=== PATIENT | female | born 1955 | race Caucasian/White ===

== ENCOUNTER → 2017-04-30 13:04 | Outpatient (CLI) | payer OTHER, SELFPAY ==
--- NOTE | 2017-04-30 13:23 | EKG12_ITS ---
Test Reason : PRE OP Blood Pressure : / mmHG Vent. Rate : 074 BPM Atrial Rate : 075 BPM P-R Int : 166 ms QRS Dur : 074 ms QT Int : 396 ms P-R-T Axes : 065 015 057 degrees QTc Int : 439 ms Somatic/motion artifact Normal sinus rhythm Confirmed by DILCIA CHRISTENSEN, AMRA ([id number]), school photograph editor CA HERRERA ([id number]) on 05/01/2017 1:26:21 PM Referred By: Ralph Herrera Confirmed By:MARA HA MD
[2017-04-30 13:36] LABS: Hematocrit 39.7 % (37-47); Hemoglobin 12.9 g/dl (12.0-15.0); Mean Corp Hgb Conc 32.5 g/gl (32-36); Mean Corpuscular Hgb 29.5 pg (27.0-32.0); Mean Corpuscular Volume 90.6 fL (81-99); Mean Platelet Vol. 9.3 fl (6.2-12.0); Platelet Count 265 K/mm3 (150-450); RBC Distribution Width CV 13.3 % (11.6-14.6); RBC Distribution Width SD 44.1 fl (35.1-43.9); Red Blood Count 4.38 M/mm3 (4.2-5.4); White Blood Count 6.2 K/mm3 (4.4-11.0)
[2017-04-30 13:38] LABS: Scan Indicated on CBC? Y/N NO
[2017-04-30 13:55] LABS: Anion Gap 6 (5-15); BUN 12 mg/dL (7-18); BUN/Creat Ratio 18.7 RATIO (10-20); Calcium,Total 8.4 mg/dL (8.5-10.1); Chloride 107 mmol/L (98-107); Creatinine, Serum 0.64 mg/dL (0.55-1.02); EST Glomerular Filtration Rate 99 mL/min (>60); Est Glom Filt Rate - Afr Amer 120 mL/min (>60); Glucose 106 mg/dL (74-106); Potassium 3.7 mmol/L (3.5-5.1); Sodium Level 142 mmol/L (136-145)
== END ==
PROVIDERS: Family Provider Internal Medicine; PCP Internal Medicine; Visit Provider Orthopaedic Surgery
DX: Z01.818 Encounter for other preprocedural examination (principal); Z79.899 Other long term (current) drug therapy
CPT/HCPCS: 36415; 80048; 85027; 93005

== ENCOUNTER → 2018-01-23 10:33 | Outpatient (CLI) | payer OTHER, SELFPAY ==
[2018-01-23 12:12] LABS: AST(SGOT) 16 U/L (15-37); Alanine Aminotransfer ALT/SGPT 16 U/L (13-56); Albumin, Serum 3.6 g/dL (3.2-5.0); Alkaline Phosphatase 89 U/L (45-117); Anion Gap 8 (5-15); BUN 17 mg/dL (7-18); BUN/Creat Ratio 23.5 RATIO (10-20); Calcium,Total 8.9 mg/dL (8.5-10.1); Chloride 105 mmol/L (98-107); Creatinine, Serum 0.72 mg/dL (0.55-1.02); EST Glomerular Filtration Rate 87 mL/min (>60); Est Glom Filt Rate - Afr Amer 105 mL/min (>60); Globulin 3.7 g/dL (2.2-4.2); Glucose 74 mg/dL (74-106); Protein, Total 7.3 g/dL (6.4-8.2); Sodium Level 141 mmol/L (136-145)
== END ==
PROVIDERS: Family Provider Internal Medicine; PCP Internal Medicine
DX: D05.80 Other specified type of carcinoma in situ of unspecified breast (principal)
CPT/HCPCS: 36415; 80053

== ENCOUNTER → 2019-01-15 13:04 | Outpatient (CLI) | payer OTHER, SELFPAY ==
--- NOTE | 2019-01-15 13:07 | BI_ITS ---
MAMMOGRAPHY - BILATERAL SCREENING REASON FOR EXAM: Female, 63 years old. Routine annual screening examination. PERTINENT HISTORY: Non-contributory. History of prior bilateral breast reduction surgery. TECHNIQUE: Digital bilateral breast mike (3D mammographic acquisition) in the CC and MLO projections. 2-D mediolateral oblique (MLO) and craniocaudad (CC) views of both breasts were obtained. CAD: Full Field Digital Mammography with Computer Added Detection was performed. COMPARISON: Comparison is made with prior examination dated June 27, 2011. FINDINGS: Breast Composition: The breasts are heterogeneously dense, which may obscure small masses. There are no dominant masses or suspicious calcifications. Stable bilateral benign-appearing axillary lymph nodes. No other significant abnormalities are identified. There has been no significant change since the prior study. BI/SCREEN MAMM (CAD) W/MIKE BILAT IMPRESSION: Stable bilateral screening mammogram. Yearly follow-up mammogram recommended. (A) ASSESSMENT CATEGORY: BIRADS Category 2: Benign. A letter regarding these results will be sent to the patient by the facility within 30 days. Approximately 10% of breast cancers are not detected by mammography. A normal mammogram should not delay biopsy of a clinically suspicious abnormality. [id number] Electronically Signed: Milan Tello, at 15:01 EDT , Service support ,
== END ==
PROVIDERS: Family Provider Internal Medicine; PCP Internal Medicine; Referring Provider Obstetrics & Gynecology; Visit Provider Obstetrics & Gynecology
DX: Z12.31 Encounter for screening mammogram for malignant neoplasm of breast (principal)
CPT/HCPCS: 77063; 77067

== ENCOUNTER → 2019-02-11 07:55 | Outpatient (CLI) | payer OTHER, SELFPAY ==
[2019-01-22 13:12] VITALS: BMI 30.9
[2019-02-11 08:54] LABS: ALB/GLOB Ratio 1.1 RATIO (0.9-2.4); AST(SGOT) 20 U/L (15-37); Alanine Aminotransfer ALT/SGPT 13 U/L (13-56); Albumin, Serum 3.7 g/dL (3.2-5.0); Alkaline Phosphatase 85 U/L (45-117); Anion Gap 7 (5-15); BUN 19 mg/dL (7-18); Calcium,Total 9.4 mg/dL (8.5-10.1); Chloride 110 mmol/L (98-107); Cholesterol 225 mg/dL (200); EST Glomerular Filtration Rate 89 mL/min (>60); Est Glom Filt Rate - Afr Amer 107 mL/min (>60); Globulin 3.5 g/dL (2.2-4.2); Glucose 80 mg/dL (74-106); High Density Lipoprotein 67 mg/dL; Potassium 4.2 mmol/L (3.5-5.1); Protein, Total 7.2 g/dL (6.4-8.2); Sodium Level 144 mmol/L (136-145); Triglycerides 91 mg/dL; Very Low Density Lipoprotein 18 mg/dL (5-40)
== END ==
PROVIDERS: Family Provider Internal Medicine; PCP Internal Medicine; Referring Provider Obstetrics & Gynecology; Visit Provider Obstetrics & Gynecology
DX: Z13.220 Encounter for screening for lipoid disorders (principal); Z13.1 Encounter for screening for diabetes mellitus
CPT/HCPCS: 36415; 80053; 80061

== ENCOUNTER → 2020-01-05 | Outpatient (CLI) | payer MEDICARE, SELFPAY ==
[2019-01-22 13:12] VITALS: BMI 30.9
--- NOTE | 2020-01-05 10:22 | BI_ITS ---
MAMMOGRAPHY - BILATERAL SCREENING REASON FOR EXAM: Female, 64 years old. Routine annual screening examination. PERTINENT HISTORY: Non-contributory. History of prior bilateral breast reduction surgery. TECHNIQUE: Digital bilateral breast mike (3D mammographic acquisition) in the CC and MLO projections. 2-D mediolateral oblique (MLO) and craniocaudad (CC) views of both breasts were obtained. CAD: Full Field Digital Mammography with Computer Added Detection was performed. COMPARISON: Comparison is made with prior study dated 01/15/2019. FINDINGS: Breast Composition: The breasts are heterogeneously dense, which may obscure small masses. There are no dominant masses or suspicious calcifications. Stable benign-appearing bilateral axillary nodes. No other significant abnormalities are identified. There has been no significant change since the prior study. BI/SCREEN MAMM (CAD) W/MIKE BILAT IMPRESSION: Stable bilateral screening mammogram. Yearly follow-up mammogram recommended. (A) ASSESSMENT CATEGORY: BIRADS Category 2: Benign. A letter regarding these results will be sent to the patient by the facility within 30 days. Approximately 10% of breast cancers are not detected by mammography. A normal mammogram should not delay biopsy of a clinically suspicious abnormality. [id number] Electronically Signed: Milan Tello, at 12:16 EDT , Service support ,
== END | disposition home or self-care (01) ==
PROVIDERS: PCP Internal Medicine; Referring Provider Obstetrics & Gynecology; Visit Provider Obstetrics & Gynecology
DX: Z12.31 Encounter for screening mammogram for malignant neoplasm of breast (principal)
CPT/HCPCS: 77063; 77067

== ENCOUNTER → 2020-02-23 08:23 | Outpatient (CLI) | payer MEDICARE, SELFPAY ==
[2020-02-10 13:01] VITALS: BMI 32.3
--- NOTE | 2020-02-23 08:29 | BD_ITS ---
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 COMPARISON: None. FINDINGS: Lumbar Spine (L1-L4): g/cm2 (1.204) / T-score (0.0) / Z-score (1.6) Findings are suggestive of normal bone density with a low fracture risk. Left Femur Total: g/cm2 (0.973) / T-score (-0.3) / Z-score (0.9) Left Femoral Neck: g/cm2 (0.968) / T-score (-0.5) / Z-score (1.0) Right Femur Total: g/cm2 (0.935) / T-score (-0.6) / Z-score (0.6) Right Femoral Neck: g/cm2 (0.993) / T-score (-0.3) / Z-score (1.2) BD/Dexa Bone Density Study IMPRESSION: The patient is considered normal as outlined below according to World Rafa Organization (WHO) criteria with a low fracture risk. Reference Information: The T-score is the number of standard deviations above or below the standard which is normal for young adults at their peak bone mineral density. The World Health Organization (WHO) interprets the T-scores as follows: Above -1 Normal bone density Between -1 and -2.5 Osteopenia Equal to / or below -2.5 Osteoporosis As a practical clinical guideline, osteopenia may be graded as follows: Mild -1 through -1.5 Moderate -1.6 through -2.0 Severe -2.1 through -2.4 The Z-score is the number of standard deviations above or below age-matched controls. A Z-score of less than -1.5 would be considered abnormal. References: 1. NIH Osteoporosis and Related Bone Diseases www osteo.org 2. International Society for Clinical Densitometry www iscd.org 3. National Osteoporosis Foundation www nof.org Electronically Signed: Milan Tello, at 10:05 EST , Service support ,
== END ==
PROVIDERS: PCP Internal Medicine; Referring Provider Nurse Practitioner Women's Health; Visit Provider Nurse Practitioner Women's Health
DX: Z78.0 Asymptomatic menopausal state (principal)
CPT/HCPCS: 77080

== ENCOUNTER → 2020-03-17 13:01 | Outpatient (CLI) | payer MEDICARE, SELFPAY ==
[2020-03-17 11:09] VITALS: BMI 32.1
== END ==
PROVIDERS: PCP Internal Medicine; Referring Provider Nurse Practitioner Women's Health; Visit Provider Nurse Practitioner Women's Health
DX: N89.8 Other specified noninflammatory disorders of vagina (principal)
CPT/HCPCS: 87070; 87077; 87205

== ENCOUNTER → 2020-03-23 13:52 | Outpatient (CLI) | payer MEDICARE, SELFPAY ==
[2020-03-17 11:09] VITALS: BMI 32.1
--- NOTE | 2020-03-23 13:55 | US_ITS ---
STUDY: ULTRASOUND OF THE FEMALE PELVIS - COMPLETE REASON FOR EXAM: Female, 64 years old. PELVIC PAIN LMP: Menopause TECHNIQUE: Transabdominal and Transvaginal TECHNICAL QUALITY: Adequate. COMPARISON: None. FINDINGS: The uterus is anteverted and is in a midline position. The uterus measures 11.4 x 5.8 x 5.2 cm. Normal uterine cervix. The endometrium measures 4 mm in thickness, and is hyperechoic. There is no demonstrated endometrial mass. There is no demonstrated myometrial mass. I.U.D. - The patient does not have an I.U.D. The ovaries are not visualized.. There is no fluid in the cul-de-sac. The pre void volume of the bladder was ml. The post void volume of the bladder was ml. Polycystic ovary disease: No. US/Transvaginal Non- IMPRESSION: Enlarged heterogeneous uterus but without discrete mass. Questionable endometrial thickening. Correlation with pelvic MRI would be useful. Electronically Signed: Kemar Driver MD at 15:37 EST Tel , Service support ,
--- NOTE | 2020-03-23 13:55 | US_ITS ---
STUDY: ULTRASOUND OF THE FEMALE PELVIS - COMPLETE REASON FOR EXAM: Female, 64 years old. PELVIC PAIN LMP: Menopause TECHNIQUE: Transabdominal and Transvaginal TECHNICAL QUALITY: Adequate. COMPARISON: None. FINDINGS: The uterus is anteverted and is in a midline position. The uterus measures 11.4 x 5.8 x 5.2 cm. Normal uterine cervix. The endometrium measures 4 mm in thickness, and is hyperechoic. There is no demonstrated endometrial mass. There is no demonstrated myometrial mass. I.U.D. - The patient does not have an I.U.D. The ovaries are not visualized.. There is no fluid in the cul-de-sac. The pre void volume of the bladder was ml. The post void volume of the bladder was ml. Polycystic ovary disease: No. US/Pelvic (Non ) IMPRESSION: Enlarged heterogeneous uterus but without discrete mass. Questionable endometrial thickening. Correlation with pelvic MRI would be useful. Electronically Signed: Kemar Driver MD at 15:37 EST Tel , Service support ,
== END ==
LOC: OPUS 13:54 → US 14:05
PROVIDERS: PCP Internal Medicine; Visit Provider Nurse Practitioner Women's Health
DX: R10.2 Pelvic and perineal pain (principal)
CPT/HCPCS: 76830; 76856

== ENCOUNTER → 2020-04-26 15:57 | Outpatient (CLI) | payer MEDICARE, SELFPAY ==
[2020-04-12 08:12] VITALS: BMI 31.6
--- NOTE | 2020-04-26 15:58 | MRI_ITS ---
STUDY: MR PELVIS WITH T WITHOUT CONTRAST REASON FOR EXAM: Female, 64 years old. abnormal pelvic u/s; pelvic pain, pressure, leaking of urine TECHNIQUE: Standardized fat and water weighted pulse sequences were obtained in all 3 orthogonal planes, pre-and post contrast administration. IV 15 Dotarem was administered for the contrast portion of the examination. COMPARISON: None. FINDINGS: Normal urinary bladder. Normal visualized small intestine. Normal visualized colon. Normal visualized uterus. There is no pelvic fluid. There is no pelvic mass lesion or lymphadenopathy. Normal visualized pelvic arteries. Normal osseous structures. Normal abdominal wall. MRI/Pelvis W/WO Contrast IMPRESSION: Normal unenhanced and enhanced MRI of the pelvis. Electronically Signed: Kemar Driver MD at 7:58 EST Tel , Service support ,
[2020-04-26 16:21] LABS: EGFR FINGERSTICK > 60.0000 mL/min (>60)
== END ==
PROVIDERS: PCP Internal Medicine; Referring Provider Obstetrics & Gynecology; Visit Provider Obstetrics & Gynecology
DX: R93.89 Abnormal findings on diagnostic imaging of other specified body structures (principal)
CPT/HCPCS: 72197; A9575

== ENCOUNTER → 2020-08-24 15:09 | Outpatient (CLI) | payer MEDICARE, SELFPAY ==
[2020-04-12 08:12] VITALS: BMI 31.6
--- NOTE | 2020-08-24 | CYSPIN_PTH ---
PATIENT: ROHIT TEJADA LOC: [facility] U#:[id number] AGE/SX: 69/F ROOM: RE08/24/[address]: Dr. Fatimah Mills MD : 1955 BED: DIS: SPEC #: [id number] RECD: 08/25/20 08:13 STATUS: VALARIE KRIS #: [id number] ZOHRA: 08/24/20 00:[address]: Fatimah Mills DEPT: CYTOLOGY RECD BY: Marcial Alcaraz ENTERED: 08/25/20 08:14 SP TYPE: CYSPIN FL OTHR DR: Dr. Kwasi Reyes MD Tissues: Urine Procedures: Pap Stain (control) Special Stain Group II Cytospin Fluid HEADER OPERATION: Not noted PRE-OP DIAGNOSIS: Gross hematuria TISSUE SUBMITTED: Urine for cytology DIAGNOSIS CYTOLOGY Urine for cytology (cytospin): Acute inflammation. Rare atypical urothelial cells, favor reactive. Blood. AM:ashish 08/26/2020 CYTOLOGY STUDY Slides are reviewed. CYTOLOGY GROSS Received is 45 ml of gold cloudy fluid labeled with the patient's name and and designated per the requisition as urine. Submitted for cytology preparation. / ashish 08/25/2020 TC:2 CPT: 52375
[2020-08-24 16:25] LABS: Cytology, Body Fluid / CSF SEE PATHOLOGY REPORT
== END ==
PROVIDERS: PCP Internal Medicine; Visit Provider Urology
DX: R31.0 Gross hematuria (principal)
CPT/HCPCS: 88108; 88313

== ENCOUNTER → 2020-09-09 08:18 | Outpatient (CLI) | payer MEDICARE, SELFPAY ==
[2020-04-12 08:12] VITALS: BMI 31.6
[2020-08-31 08:36] LABS: CREATININE FINGERSTICK 0.8 mg/dL (0.55-1.02); EGFR FINGERSTICK > 60.0000 mL/min (>60)
--- NOTE | 2020-08-31 08:42 | RAD.NOTE ---
Windybryce Kruse was rescheduled 08/31/20 due to having a Iodine allergy that we were unaware of, sheis going to reschedule and get pre-meds. Maryanne Ware 08/31/20 [id number]
--- NOTE | 2020-09-09 08:19 | CT_ITS ---
ACR Level 3 findings have been noted. An addendum which confirms receipt of the report will follow. STUDY: CT ABDOMEN AND PELVIS WITH AND WITHOUT CONTRAST REASON FOR EXAM: Female, 65 years old. Gross hematuria for 9 months RADIATION DOSAGE (If Supplied By Facility): CTDIvol = ( 18.48 ) mGy, DLP = ( 2912.09 ) mGycm TECHNIQUE: Transaxial images were obtained from the dome of the diaphragm to the symphysis pubis without oral contrast. IV 100mL Isovue-300 was administered. Sagittal and coronal images were reconstructed. Individualized dose optimization techniques were used for this CT. COMPARISON: 26 April 2020 MR pelvis, one September 2011 FINDINGS: There is a 6.5 cm left adnexal lower pelvic heterogeneously enhancing solid lesion in broad contact with the the upper vagina and posterolateral uterus. There are multiple metastatic lymph nodes, some of which are necrotic in the left external iliac chain at 2 cm, left common iliac chain at 1.7 cm and along the left retroperitoneum lateral to the aorta ascending up to the renal vein. There is a contralateral right inguinal 1.7 cm enhancing rounded lymph nodes. Uterus is distended with fluid and contains intramural lesions up to 2.8 cm in the left anterior fundus. There is a surgical clip in the right adnexa stated history of right salpingo-oophorectomy. There is no ascites. Bladder is normal. Ureter courses lateral to the mass and is difficult to visualize in its distal third segment. Proximal and mid segments are normal and not dilated. There is no hydronephrosis. Kidneys are normal. Liver, adrenals pancreas and spleen are normal. There is no intestinal obstruction. There are no destructive osseous lesions. There is a benign hemangioma in T11. CT/CT Abd/Pelvis W/WO Contrast IMPRESSION: 1. Left adnexal 6.5 cm mass, probably ovarian cancer. 2. Left pelvic, left retroperitoneal and right inguinal lymphadenopathy. 3. Unremarkable urinary system. 4. Distal left ureter difficult to separate from the lesion, no hydronephrosis. Electronically Signed: Reema Dickens MD at 17:44 EDT Tel , Service support ,
== END ==
PROVIDERS: PCP Internal Medicine; Referring Provider Urology; Visit Provider Urology
DX: R31.0 Gross hematuria (principal)
CPT/HCPCS: 74178; Q9967

== ENCOUNTER → 2020-10-04 06:47 | Outpatient (CLI) | payer MEDICARE, SELFPAY ==
[2020-09-27 13:52] VITALS: BMI 27.8
[2020-09-30 13:37] VITALS: BMI 27.8
--- NOTE | 2020-10-04 06:52 | CT_ITS ---
STUDY: CT CHEST WITHOUT CONTRAST REASON FOR EXAM: Female, 65 years old. New diagnosis of ovarian carcinoma. RADIATION DOSAGE (If Supplied By Facility): CTDIvol = ( 10.43 ) mGy, DLP = ( 331.07 ) mGycm TECHNIQUE: Transaxial imaging was performed without the administration of intravenous contrast material. Multiplanar coronal and sagittal images were reformatted. Individualized dose optimization techniques were used for this CT. COMPARISON: None. FINDINGS: Small benign appearing bilateral axillary lymph nodes. The lungs are normal. There is no demonstrated pleural abnormality. Normal heart and pericardium. There are multiple small lymph nodes within the mediastinum, which are normal in size and morphology most compatible with reactive lymph hyperplasia. Normal hilar regions. Normal unenhanced pulmonary arteries. Normal aorta arch and descending thoracic aorta. There are multi-level degenerative changes of the thoracic spine. Stable benign appearing hemangioma in the T11 vertebrae. There is no demonstrated abnormality of the visualized upper abdomen. CT/Chest without Contrast IMPRESSION: No acute abnormality is seen. Electronically Signed: Milan Tello MD at 10:13 EDT , Service support ,
== END ==
PROVIDERS: PCP Internal Medicine; Referring Provider Internal Medicine Medical Oncology; Visit Provider Internal Medicine Medical Oncology
DX: C56.9 Malignant neoplasm of unspecified ovary (principal)
CPT/HCPCS: 71250

== ENCOUNTER 2020-10-10 09:23 | Day surgery (SDC) | payer MEDICARE, SELFPAY ==
[2020-09-30 13:37] VITALS: BMI 27.8
[2020-10-05 08:37] VITALS: BMI 27.7
[2020-10-10 09:41] VITALS: BP 143/60; PULSE 65; RESP 14; TEMP 36.5; O2SAT 99; BMI 27.6
--- NOTE | 2020-10-10 09:55 | HP.PCM_ITS ---
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 Accompanied by: Is patient in pain?: No Allergies Iodinated Contrast Media Allergy (Verified 09/30/20 13:35) Swelling Medications pantoprazole 20 mg tablet,delayed release 20 mg PO DAILY 01/14/18 [History Confirmed 09/30/20] estradiol See Rx Instructions VAGINAL .COMPLEX #42.5 g 03/22/20 [Rx Confirmed 09/30/20] methenamine 81.6 mg-sod phos 40.8 mg-methylene blue 0.12mg-hyos tablet 1 tab PO ONCE 04/12/20 [History Confirmed 09/30/20] phenazopyridine 100 mg tablet 100 mg PO TID PRN 0 Days #30 tab 04/12/20 [Rx Confirmed 09/30/20] PFSH Medical History Ovarian cancer Surgical History H/O total hysterectomy History of delivery Hx of breast reduction, elective Family History Mother Cancer cervical lung Father Cancer throat Social History Smoking Status: Never smoker alcohol intake: current details: social substance use type: does not use caffeine: No what type of physical activity do you participate in: walking frequency: 5-6 times per week seatbelt use: always do you feel safe at home: Yes 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 history: [employer]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 Patient states she does have a left chest subcutaneous mass likely lipoma could probably have to go on her right chest. Patient states her treatments are starting October 11. ROS General General: Yes weight change; No appetite, fatigue, colon cancer, breast cancer or weakness HEENT HEENT: No difficulty swallowing, eye injury, eye surgery, swollen glands or hoarseness Endo Endocrine: No thyroid disease, diabetes mellitus, thyroid cancer, Hair loss, heat intolerance or cold intolerance Skin Skin: No rash or changing moles Breast Breast: No left breast lump, right breast lump, nipple discharge, breast pain, abnormal mammogram, abnormal US or breast enlargement Musc Musculoskeletal: No back problems, arthritis, rheumatoid arthritis, gout or joint pain Cardio Cardiovascular: No murmur, pacemaker, heart disease, atrial fibrillation, high blood pressure, heart attack, heart stent, palpitations, shortness of breat with exertion or chest pain Psych Psychiatric: No depression, anxiety or hearing voices Resp Respiratory: No shortness of breath, No sleep apnea, No cough, No COPD, No asthma, No emphysema and No wheezing Gastro Gastrointestinal: No abdominal pain, No nausea or vomiting, No diarrhea, No constipation, No blood in stool, No acid reflux, No hemorrhoids, No ulcers, No gallbladder problem and No black,tarry stools Irvin Hematologic: No blood thinners, No blood disorders, No bleeding, No anemia and No blood clots Neuro Neurologic: No system reviewed and no additional complaints, except as documented, No as per HPI, No abnormal gait, No abnormal hearing, No abnormal movements, No abnormal speech, No behavioral changes, No burning sensations, No confusion, No convulsions, No disequilibrium, No dizziness, No localized weakness, No frequent falls, No headache(s), No lack of coordination, No loss of vision, No memory loss, No numbness, No other visual disturbances, No radicular pain, No restless legs, No sensory deficit, No syncope, No tingling, No tremor(s), No weakness and No other Exam Const General: cooperative, healthy appearing, comfortable and no acute distress Neck Neck: normal visual inspection Chest Other: Right upper chest palpation normal, left upper chest subcutaneous mass l ikely lipoma about 3 cm x 3 cm, mobile, nontender Resp Effort & Inspection: normal respiratory effort Cardio Rate: regular rate GI Inspection: non-distended Skin General: no rashes or lesions noted Neuro General: patient oriented x3 Psych Affect: normal affect COVID (Procedure Consent) Procedure Criteria Procedure Criteria: Yes Elective The surgeon/proceduralist and patient have discussed in detail the risk of exposure to and/or potential harm posed by the COVID-19 virus with having a surgery/procedure at this time versus the risk of delaying the surgery/procedure. It is not possible to know either the risk of delaying the surgery or procedure or chance of getting an infection with perfect accuracy, but a joint decision was made between the patient and the surgeon/proceduralist to proceed at this time with the scheduled surgery/procedure as indicated on the consent form. Assessment and Plan Assessment and Plan (1) Encounter for insertion of venous access port: Status: Acute (2) Endometrial carcinoma: Status: Acute Comment: Serous carcinoma, FIGO stage IVB(pT3a pN2a pM1). S/P de-bulking surgery on 09/16/2020. Discussed disease status, treatment with adjuvant chemotherapy-Taxol dose dense and Carboplatin, risks, benefits and side effects Plan - Dr. Mel Mcfadden MD: I have discussed above with the patient- Port-a-Cath placement. Right possible left IJ Patient has been counseled as to the risks/benefits of the procedure. I have explained the risks of the surgery, including but not limited to: infection, bleeding, injury to any blood vessels/nerves, injury to lungs (such as pneumothorax or hemothorax and need for chest tube), not having any access, nonfunctioning of port due to thrombosis, infection of port, etc. the patient understands and agrees to proceed. I have answered all the patient's questions to the patient?s satisfaction and the patient has no further questions. Mel Mcfadden M.D. Pager: [phone] [facility] [address] [place] [address] [place] [address] Office: [phone] Coding Level of Care Code Off vis,new,level 3 Diagnoses Encounter for insertion of venous access port Z45.2 Endometrial carcinoma C54.1 09/30/20 [id number]<Electronically signed by Mel Mcfadden MD>Date Mel Mcfadden MD
[2020-10-10] MEDS: Lactated Ringers 1,000 ML 100 ML IV (10:44)
[2020-10-10] MEDS: Cefazolin 2 GM in 0.9% Normal Saline 100 ML IV (10:59)
[2020-10-10] MEDS: Lidocaine 1% (30 ml sdv) 30 ML Vial (11:30)
[2020-10-10] MEDS: Bupivacaine Mpf 0.5% 30 ML VIAL (11:30)
--- NOTE | 2020-10-10 11:46 | PCM.OPRPT ---
Report of Operation Date of Procedure: 10/10/20 Pre-Operative Diagnosis: Z 45.2 endometrial carcinoma Post-Operative Diagnosis: Same Surgery/Procedure Performed:: 1. Placement of right IJ Port-A-Cath 2. Use of ultrasound 3. Use of fluoroscopy. Surgeon: Mel Mcfadden Type of Anesthesia: Local MAC Anesthesiologist: Jose Salinas Special Medications: Ancef 2 g IV x1 Estimated Blood Loss (mL): < 10 cc Description of Procedure: After informed consent was given, the patient was brought to the operating room and placed in the supine position. Appropriate time out protocol was followed. Patient was then given IV conscious sedation for anesthesia. The patient's right upper chest and neck were then prepped with a surgical skin preparation and sterile surgical drapes were placed. After proper landmarks were ascertained, the skin at the upper right chest area was then infiltrated with 1:1 mixture of 1% lidocaine and 0.5% marcaine. A needle trocar was then inserted into the right internal jugular vein with ultrasound guidance-multiple vessels were viewed with u/s and the right IJ was chosen-- and there was good aspiration of venous blood. A wire was then threaded into the needle trocar and this was visualized under fluoroscopy to ensure that the wire was in the superior vena cava. Once this was done, then the needle trocar was removed. A small skin reta was made with an 11 blade knife at the wire entrance site. The dilator with the introducer sheath attached was then placed over the wire into the right internal jugular vein via the Seldinger technique and this was visualized under fluoroscopy. The dilator and sheath were in proper position as visualized by fluoroscopy. A subcutaneous pocket was then created caudad to the catheter insertion site. A transverse skin incision was made after the skin and subcutaneous tissues were infiltrated with local anesthetic. Blunt dissection was then used to create a space large enough for placement of the subcutaneous port. The catheter was then tunneled into the subcutaneous pocket. The wire and dilator were then removed. The catheter was then threaded into the introducer sheath and was positioned with its tip at the junction of the superior vena cava and the right atrium as visualized under fluoroscopy. The excess catheter was transected. The catheter was then attached to the subcutaneous port using manufacturers guidelines. The catheter was flushed with a heparin saline mixture prior to placement. Hemostasis was carefully controlled with electrocautery. The port was sutured to the subcutaneous fascia using 2-0 Vicryl suture at two sites. The port was then placed in the subcutaneous pocket. The incision were reapproximated with interrupted subdermal 3-0 vicryl sutures. The skin was reapproximated with 3-0 nylon suture in a interrupted fashion. Steristrips were used for reinforcement of the skin closure at IJ insertion site and a sterile opsite dressings were applied. The patient tolerated the procedure well. Implants Used: Bard PowerPort isp M.R.I. 6Fr Lot [id number] Grafts/Implants Used: [employer] PowerPort isp M.R.I. 6Fr Lot [id number]
--- NOTE | 2020-10-10 11:49 | EX.PCM.DISCH ---
Discharge Instructions Procedure Port-A-Cath Diet Discharge Diet: Light diet - advance as tolerated Activity May shower in (days): 5 (Keep port site clean and dry x5 days. Neck incision okay to get wet after 1 day. Okay to lower shower and upper sponge bath. OR okay to taper off port site with a Ziploc bag to shower) Lifting Restrictions: No lifting > 15 pounds for 3 days with the arm on the side of the port Dressing / Incision Call your doctor if your incision/area has: Continuous Slow Oozing, Sudden Increased Bleeding, Increased Pain/ Swelling, Increased Redness, Foul Smelling Discharge and Swelling at the incision site Call your doctor if you observe: Fever of 101 or Higher Change Dressing in: 2 days Follow Up Care Please Follow Up With: Mel Mcfadden MD When: In 10 days for permanent suture removal?call office for appointment Test Results: Test results from this visit will be discussed in further detail at your follow-up appointment, if applicable. Discharge Plan Admission Attending Provider: Mel Mcfadden Primary Care Provider: Kwasi Reyes Discharge Orders/Prescriptions Prescriptions: Continued pantoprazole [Protonix] 20 mg tablet,delayed release (DR/EC) 20 mg PO DAILY RF: 0 multivitamin Tablet 1 tab PO DAILY RF: 0 magnesium citrate 100 mg capsule 300 mg PO DAILY RF: 0 lidocaine-prilocaine 2.5-2.5 % cream 1 applic topical ONCE PRN (Reason: port access) 30 Days Qty: 30 RF: 2 ondansetron 8 mg tablet,disintegrating 8 mg PO Q8H PRN (Reason: nausea and vomiting) Qty: 30 RF: 2 prochlorperazine maleate 10 mg tablet 10 mg PO Q6H PRN (Reason: nausea and vomiting) Qty: 30 RF: 2 Referrals / Follow Up: Kwasi Reyes MD [Primary Care Provider] - Disposition Disposition (needs filled in before D/C Order can be placed): Home, Self Care
[2020-10-10 11:57] VITALS: BP 135/78; BP 143/60; PULSE 54; RESP 16; TEMP 36.2; O2SAT 100
[2020-10-10 12:05] VITALS: BP 138/77; BP 143/60; PULSE 55; RESP 16; O2SAT 99
--- NOTE | 2020-10-10 12:05 | RAD_ITS ---
STUDY: X-RAY CHEST REASON FOR EXAM: Female, 65 years old. Port -- pacu TECHNIQUE: Single AP portable view of the chest. COMPARISON: Comparison is made with prior study dated 11/21/2010. FINDINGS: A right-sided portacatheter has been placed. The tip is in the right atrium. The lungs are clear and expanded. There is no demonstrated pleural abnormality. Normal size heart. Normal mediastinum and ko. Normal visualized pulmonary arteries. There is atherosclerotic tortuosity of the aortic arch and descending thoracic aorta. There are degenerative changes of the visualized thoracic spine. Normal visualized ribs, clavicles, and shoulders. There is no demonstrated abnormality of the visualized soft tissue structures of the upper abdomen. RAD/CXR for Line Placement IMPRESSION: The tip of the right portacatheter is in the right atrium. Electronically Signed: Milan Tello MD at 14:03 EDT , Service support ,
[2020-10-10 12:10] VITALS: BP 143/60; BP 143/76; PULSE 56; RESP 14; O2SAT 100
[2020-10-10 12:17] VITALS: BP 139/81; BP 143/60; PULSE 54; RESP 14; TEMP 36.2; O2SAT 99
[2020-10-10 13:35] VITALS: BP 126/52; BP 143/60; PULSE 61; RESP 16; TEMP 36.4; O2SAT 99
--- NOTE | 2020-10-10 13:37 | SUR.PHASEII ---
Awaiting read on Xray post- op. This nurse called radiology. It has been more than an hour for a stat read. Patient educated and informed.
--- NOTE | 2020-10-10 13:50 | SUR.PHASEII ---
called to radiology about xray report being read
--- NOTE | 2020-10-10 14:01 | SUR.PHASEII ---
This nurse contacted Dr. Mcfadden after extended time period for read of post-op chest x ray. Dr. Mcfadden cleared to be discharged and Dr. Mcfadden will follow up on chest xray. Patient educated and understands.
== END 2020-10-10 14:08 | disposition home or self-care (01) ==
LOC: SDC 09:24 → AC 09:25
PROVIDERS: PCP Internal Medicine; Referring Provider Surgery; Visit Provider Surgery
PROC: (CPT 36561; principal; 2020-10-10 10:45)
DX: Z45.2 Encounter for adjustment and management of vascular access device (principal); C54.1 Malignant neoplasm of endometrium; Z90.710 Acquired absence of both cervix and uterus; K21.9 Gastro-esophageal reflux disease without esophagitis
CPT/HCPCS: 00532; 36561; 71045; 77001; J7120; J2405

== ENCOUNTER → 2020-12-12 07:50 | Outpatient (CLI) | payer MEDICARE, SELFPAY ==
--- NOTE | 2020-12-12 07:57 | CT_ITS ---
STUDY: CT ABDOMEN AND PELVIS WITHOUT CONTRAST REASON FOR EXAM: Female, 65 years old. Upper abd pain, h/o uterine ca RADIATION DOSAGE (If Supplied By Facility): CTDIvol = ( 9.26 ) mGy, DLP = ( 448.61 ) mGycm TECHNIQUE: Transaxial images were obtained from the dome of the diaphragm to the symphysis pubis without oral contrast, and without intravenous contrast. Sagittal and coronal images were reconstructed. Individualized dose optimization techniques were used for this CT. COMPARISON: Comparison is made with prior study dated 09/09/2020. FINDINGS: Minimal linear atelectasis and/or scarring in the lingular segment of the left upper lobe. The visualized portions of the heart are within normal limits. Normal liver. There are tiny gallstones or sludge within the dependent portion of the gallbladder lumen. Normal spleen. Normal pancreas. Normal bilateral adrenal glands. Normal right kidney. Normal left kidney. Normal visualized stomach. Normal small intestine. Normal colon. The appendix is visualized and appears normal. There is diffuse atherosclerotic calcification of the abdominal aorta, without a demonstrated aneurysm. Normal inferior vena cava. There is retroperitoneal lymphadenopathy with enlarged nodes greater than 10-15mm in the short axis. These have improved as compared to prior study. Normal urinary bladder. The patient is status post hysterectomy and left nephrectomy. Small benign-appearing bilateral inguinal lymph nodes. The largest lymph node measures 1.3 cm in the right groin. There is a left-sided inguinal hernia containing adipose tissue. There are mild degenerative changes of the visualized lumbar spine. Stable small hemangioma in the T11 vertebrae. CT/Abdomen/Pel W ORAL Cont Only IMPRESSION: Status post hysterectomy and oophorectomy. Residual mildly enlarged retroperitoneal lymph nodes. Sludge or tiny gallstones along the dependent portion of the gallbladder lumen. Electronically Signed: Milan Tello MD at 10:18 EDT , Service support ,
== END ==
PROVIDERS: PCP Internal Medicine; Referring Provider Nurse Practitioner Family; Visit Provider Nurse Practitioner Family
DX: C54.1 Malignant neoplasm of endometrium (principal); R10.10 Upper abdominal pain, unspecified
CPT/HCPCS: 74176

== ENCOUNTER → 2020-12-27 12:45 | Outpatient (CLI) | payer MEDICARE, SELFPAY ==
--- NOTE | 2020-12-27 12:46 | ECHOLONC_ITS ---
Reason For Study: High risk meds, chemo Procedure This was a limited 2D transthoracic echocardiogram. Myocardial strain analysis was performed in this exam to aid in the assessment of cardiac function. Exam performed in department. Left Ventricle Normal LV size. Left ventricular systolic function is normal. The estimated ejection fraction is 60 %. Stage 1 diastolic dysfunction. No regional wall motion abnormalities noted. Right Ventricle Normal RV size. Normal systolic function. Atria Normal left atrium. Normal right atrium. Mitral Valve Normal mitral valve. Mild (1+) eccentric mitral valve insufficiency. Tricuspid Valve Normal tricuspid valve. Mild tricuspid valve insufficiency. Pulmonary artery systolic pressure is 32 mmHg. Aortic Valve Normal aortic valve. Trisinus/trileaflet aortic valve. Pulmonic Valve Normal pulmonic valve. Great Vessels Normal aortic root. The pulmonary artery is normal size. Normal inferior vena cava. Pericardium/Pleural No pericardial effusion. MMode/2D Measurements & Calculations LVIDd: 5.1 cm IVSd: 0.92 cm Ao root diam: 3.1 cm LVIDs: 3.2 cm LVPWd: 0.79 cm RVDd: 3.3 cm FS: 37.2 % LAV(MOD-bp): 49.4 ml LVAd ap4: 32.2 cm2 LVAd ap2: 28.9 cm2 LAV(MOD-bp) Indexed: 27.1 ml/m2 LVLd ap4: 8.6 cm LVLd ap2: 8.5 cm LAV(MOD-sp2): 51.4 ml EDV(MOD-sp4): 98.0 ml EDV(MOD-sp2): 83.0 ml LAV(MOD-sp4): 44.1 ml EDV(sp4-el): 102.1 ml EDV(sp2-el): 83.7 ml LVAs ap4: 19.3 cm2 LVAs ap2: 16.1 cm2 LVLs ap4: 7.4 cm LVLs ap2: 7.2 cm ESV(MOD-sp4): 41.7 ml ESV(MOD-sp2): 30.7 ml ESV(sp4-el): 42.9 ml ESV(sp2-el): 30.7 ml EF(MOD-sp4): 57.4 % EF(MOD-sp2): 63.0 % EF(sp4-el): 58.0 % SV(MOD-sp4): 56.2 ml SV(MOD-sp2): 52.3 ml SV(sp4-el): 59.2 ml LA dimension(2D): 3.8 cm LA A4 area: 15.8 cm2 RA A4 area: 13.0 cm2 Doppler Measurements & Calculations MV E max troy: 85.8 cm/sec Lat Peak E' Troy: 10.7 cm/sec Med Peak E' Troy: 8.9 cm/sec MV A max troy: 110.3 cm/sec E/E' lat: 8.0 E/E' med: 9.6 MV E/A: 0.78 Ao V2 max: 161.2 cm/sec LV V1 max: 107.3 cm/sec PA V2 max: 112.2 cm/sec Ao max P.4 mmHg LV V1 max P.6 mmHg TR max troy: 262.2 cm/sec TR max P.5 mmHg ECHO/ONC Echo, Limited Study Interpretation Summary Normal LV size. Left ventricular systolic function is normal. The estimated ejection fraction is 60 %. Stage 1 diastolic dysfunction. Pulmonary artery systolic pressure is 32 mmHg. The global longitudinal strain is normal. The global longitudinal strain = -19. 9 % (normal). Ordering Physician: Silvano Corona Referring Physician: Kwasi Reyes M.D. Performed By: Molly Feliz RDCS
== END ==
PROVIDERS: PCP Internal Medicine; Referring Provider Internal Medicine Medical Oncology; Visit Provider Internal Medicine Medical Oncology
DX: I34.0 Nonrheumatic mitral (valve) insufficiency (principal); Z45.2 Encounter for adjustment and management of vascular access device; Z79.899 Other long term (current) drug therapy
CPT/HCPCS: 36591; 80053; 83615; 83735; 85025; 93308; 93356; 96367; 96376; 96413; J7050; J9267; A4216; J2405; J3490

== ENCOUNTER → 2021-02-23 13:10 | Outpatient (CLI) | payer MEDICARE, SELFPAY ==
--- NOTE | 2021-02-23 13:16 | BI_ITS ---
MAMMOGRAPHY - BILATERAL SCREENING REASON FOR EXAM: Female, 65 years old. Routine annual screening examination. PERTINENT HISTORY: Non-contributory. History of prior bilateral breast reduction surgery. TECHNIQUE: Digital bilateral breast mike (3D mammographic acquisition) in the CC and MLO projections. 2-D mediolateral oblique (MLO) and craniocaudad (CC) views of both breasts were obtained. CAD: Full Field Digital Mammography with Computer Added Detection was performed. COMPARISON: Comparison is made with prior study dated 01/05/2020 and 01/15/2009. FINDINGS: Breast Composition: There are scattered areas of fibroglandular density. There are no dominant masses or suspicious calcifications. Stable benign appearing bilateral axillary lymph nodes. No other significant abnormalities are identified. There has been no significant change since the prior study. BI/SCRN MAMM (CAD)W/MIKE BILAT IMPRESSION: Stable bilateral screening mammogram. Yearly follow-up mammogram recommended. (A) ASSESSMENT CATEGORY: BIRADS Category 2: Benign. A letter regarding these results will be sent to the patient by the facility within 30 days. Approximately 10% of breast cancers are not detected by mammography. A normal mammogram should not delay biopsy of a clinically suspicious abnormality. [id number] Electronically Signed: Milan Tello MD at 14:09 EST , Service support ,
== END ==
PROVIDERS: PCP Internal Medicine; Visit Provider Obstetrics & Gynecology
DX: Z12.31 Encounter for screening mammogram for malignant neoplasm of breast (principal)
CPT/HCPCS: 77063; 77067

== ENCOUNTER → 2021-03-14 13:21 | Outpatient (CLI) | payer MEDICARE, SELFPAY ==
--- NOTE | 2021-03-14 13:26 | CT_ITS ---
STUDY: CT CHEST, ABDOMEN T PELVIS WITHOUT CONTRAST REASON FOR EXAM: Female, 65 years old. MONITORING RADIATION DOSAGE (If Supplied By Facility): CTDIvol = ( 14.89 ) mGy, DLP = ( 1209.59 ) mGycm TECHNIQUE: Transaxial imaging was performed without the administration of intravenous contrast material. Individualized dose optimization techniques were used for this CT. COMPARISON: 10/04/2020, 12/12/2020 FINDINGS: CHEST Right internal jugular chest port. [place] of the small ill-defined nodules in the posterior left upper lobe as into a single 6 mm nodule likely consistent with healing pneumonitis or granulomatous disease. There is no demonstrated pleural abnormality. Normal heart and pericardium. Normal mediastinum. Normal hilar regions. Normal unenhanced pulmonary arteries. Normal aorta arch and descending thoracic aorta. Normal osseous structures. There is no demonstrated abnormality of the visualized upper abdomen. ABDOMEN The visualized lung bases are unremarkable. The visualized portions of the heart are within normal limits. Normal liver. Normal gallbladder and extrahepatic biliary system. Normal spleen. Normal pancreas. Normal bilateral adrenal glands. Normal right kidney. Normal left kidney. Normal visualized stomach. Normal small intestine. Normal colon. The appendix is visualized and appears normal. Normal abdominal aorta. Normal inferior vena cava. Normal retroperitoneum. Normal abdominal wall. Normal osseous structures. PELVIS Normal urinary bladder. Normal visualized small intestine. Normal visualized colon. There is no pelvic fluid. There is no pelvic lymphadenopathy or mass lesion. Normal visualized pelvic arteries. Normal abdominal wall. Normal osseous structures. CT/CT Chest, Abd, Pelvis WO Cont IMPRESSION: No CT evidence of residual, recurrent, or metastatic ovarian carcinoma. Electronically Signed: Kemar Driver MD at 10:15 EST Tel , Service support ,
== END ==
PROVIDERS: PCP Internal Medicine; Referring Provider Internal Medicine Medical Oncology; Visit Provider Internal Medicine Medical Oncology
DX: C54.1 Malignant neoplasm of endometrium (principal)
CPT/HCPCS: 71250; 74176

== ENCOUNTER → 2021-07-12 | Outpatient (CLI) | payer MEDICARE, SELFPAY ==
--- NOTE | 2021-07-12 14:53 | CT_ITS ---
EXAM: CT ABDOMEN AND PELVIS WITHOUT INTRAVENOUS CONTRAST CLINICAL INDICATION: MONITOR ENDOMETRIAL CA TECHNIQUE: Helically acquired images were obtained of the abdomen and pelvis without intravenous contrast. This CT exam was performed using one or more of the following dose reduction techniques: automated exposure control, adjustment of the mA and/or kV according to patient size, and/or use of iterative reconstruction technique. This report was created using [employer] report generation technology. RADIATION DOSE: CTDIvol = 9.99 mGy, DLP = 441.04 mGy-cm COMPARISON: . February 22, 2021. December 12, 2020., Best seen in November. No lymph nodes along the Mentioned mildly enlarged residual retroperitoneal lymph nodes following hysterectomy and oophorectomy, and slight dependent material in the gallbladder. FINDINGS: LOWER THORAX: Unremarkable. Lung bases are clear. No cardiomegaly. No significant pericardial effusion. ABDOMEN: LIVER: Unremarkable. Homogeneous. GALLBLADDER AND BILE DUCTS: Slight heterogeneous gallbladder contents again noted, the gallbladder is only mildly distended without inflammatory changes. No calcified gallstones. No intra- or extrahepatic biliary ductal dilation. PANCREAS: Unremarkable. No focal cystic mass. SPLEEN: Unremarkable. Normal size without focal cystic or solid mass. ADRENALS: Unremarkable. No nodules. KIDNEYS AND URETERS: Unremarkable. Normal renal size and position. No hydronephrosis. STOMACH AND BOWEL: No evidence of bowel obstruction. No focal inflammatory change. PELVIS: APPENDIX: No evidence of acute appendicitis. BLADDER: Unremarkable. REPRODUCTIVE: HYSTERECTOMY. ABDOMEN and PELVIS: INTRAPERITONEAL SPACE: Unremarkable. No ascites or other fluid collection. No free air. BONES/JOINTS: Small presumed benign hemangioma in T11 again noted. No suspicious lytic or blastic abnormality. SOFT TISSUES: Unremarkable. No discrete abdominal or pelvic wall hernia. VASCULATURE: Unremarkable. Abdominal aorta is non-dilated. LYMPH NODES: Similar appearance of mildly prominent left periaortic retroperitoneal lymph nodes, measuring roughly 1.5 cm x 1.2 cm, compared to December 12, 2020. Also similar compared to February. Mild increased size of right iliac bifurcation region lymph node along the right pelvic sidewall, it is 1.1 cm x 1.3 cm x 1.7 cm, it was 0.8 cm x 0.7 cm x 1.1 cm March 14, 2021. Mildly larger size of a right inguinal lymph node, roughly 1.2 cm x 1.8 cm x 1.5 cm, it was 0.8 cm x 0.9 cm x 1 cm. TUBES, LINES AND DEVICES: The tip of a central line is slightly included in the SVC-right atrial junction. CT/Abdomen/Pelvis without Cont IMPRESSION: 1. Compared to March 14, 2021. Mildly larger right iliac region retroperitoneal lymph node. Mildly larger right inferior inguinal node. 2. Otherwise stable exam. Electronically Signed: Zaira Stringer MD at 7:37 EDT ,
== END | disposition home or self-care (01) ==
LOC: CT 14:52
PROVIDERS: PCP Internal Medicine; Referring Provider Internal Medicine Medical Oncology; Visit Provider Internal Medicine Medical Oncology
DX: C54.1 Malignant neoplasm of endometrium (principal); M21.162 Varus deformity, not elsewhere classified, left knee
CPT/HCPCS: 74176

== ENCOUNTER → 2021-08-30 | Outpatient (CLI) | payer MEDICARE, SELFPAY ==
--- NOTE | 2021-08-30 15:55 | EKG12_ITS ---
Test Reason : Blood Pressure : / mmHG Vent. Rate : 074 BPM Atrial Rate : 074 BPM P-R Int : 148 ms QRS Dur : 072 ms QT Int : 356 ms P-R-T Axes : 036 -17 034 degrees QTc Int : 395 ms Normal sinus rhythm Voltage criteria for left ventricular hypertrophy Nonspecific ST abnormality Abnormal ECG Confirmed by WILFRED CHRISTENSEN, NADIRA ([id number]), acquisitions editor ALANA ZUÑIGA ([id number]) on 08/31/2021 10:17:06 AM Referred By: Silvano Corona Confirmed By:NADIRA HARDIN MD
== END | disposition home or self-care (01) ==
LOC: PSN 15:54
PROVIDERS: PCP Internal Medicine; Referring Provider Internal Medicine Medical Oncology; Visit Provider Internal Medicine Medical Oncology
DX: Z29.8 Encounter for other specified prophylactic measures (principal); C54.1 Malignant neoplasm of endometrium
CPT/HCPCS: 93005

== ENCOUNTER 2021-09-01 20:28 | Emergency (ER) | payer MEDICARE, SELFPAY ==
[2021-09-01 20:29] VITALS: BP 175/96; PULSE 75; RESP 15; TEMP 36.3; O2SAT 100; BMI 28.3
--- NOTE | 2021-09-01 20:53 | EDS_ITS ---
HPI History of Present Illness Chief Complaint: Hypertension Informant: patient and spouse/S.O. Onset/Context/Timing Onset: Today Context: Gradual Onset Timing: Continuous Current Severity: Mild Maximum Severity: Mild Narrative Narrative: 66-year-old female history of endometrial cancer metastases. Currently on oral chemotherapy. Today she had elevated blood pressure 180/105. Had a brief headache that is since resolved. She spoke to her oncology nurse practitioner who wanted to come in to be evaluated. The medications she is on can cause hypertension. She has no history of high blood pressure. And typically runs 120/60 according to the patient. She denies any other complaints. Denies any nausea vomiting or diarrhea. No fever. Otherwise feels fine. Prior similar symptoms: No Recent Illness/Hospitalization: No PFSH PFSH Medical History Cancer Constipation COVID-19 Diarrhea due to drug Encounter for chemotherapy management Encounter for education Gastric reflux Hypotension Increased appetite Left leg pain Left leg swelling Neuropathy due to chemotherapeutic drug Non-smoker Ovarian cancer Papillary serous adenocarcinoma of ovary Port-A-Cath in place Superficial vein thrombosis Upper abdominal pain Home Medications pantoprazole 20 mg tablet,delayed release (Protonix) 20 mg PO DAILY 01/14/18 [History Last Taken Unknown] lidocaine-prilocaine 2.5 %-2.5 % topical cream 1 applic topical ONCE PRN port access 30 days #30 grams 10/05/20 [Rx Last Taken Unknown] magnesium citrate 100 mg capsule 300 mg PO DAILY 10/05/20 [History Last Taken Unknown] multivitamin 1 tab PO DAILY 10/05/20 [History Last Taken Unknown] prochlorperazine maleate 10 mg tablet 10 mg PO Q6H PRN nausea and vomiting #30 tabs 10/05/20 [Rx Last Taken Unknown] L-Glutamine DAILY 10/11/20 [History Last Taken Unknown] collagen (bovine) 100 % topical powder topical DAILY 10/11/20 [History Last Take n Unknown] dexamethasone 4 mg tablet (Decadron) 4 mg PO DAILY #14 tabs 01/10/21 [Rx Last Taken Unknown] rivaroxaban 10 mg tablet (Xarelto) 10 mg PO DAILY #30 tabs 01/12/21 [Rx Last Taken Unknown] nirmatrelvir 300 mg (150 mg x 2)-ritonavir 100 mg tablet (EUA) (Paxlovid 300 mg () See Rx Instructions PO .COMPLEX #30 tabs 08/16/21 [Rx Last Taken Unknown] ondansetron 8 mg disintegrating tablet 8 mg PO Q8H PRN nausea and vomiting #30 tabs 09/01/21 [Rx Last Taken Unknown] Allergy/AdvReac Type Severity Reaction Status Date / Time Iodinated Contrast Media Allergy Severe Swelling Verified 09/01/21 20:33 Family History Mother Cancer Cervical cancer at 35 years and lung cancer later in life Father Cancer Sister Cancer Cervical cancer Surgical History H/O total hysterectomy History of delivery Hx of breast reduction, elective Social History Smoking Status: Never smoker alcohol intake: current details: social substance use type: does not use caffeine: No what type of physical activity do you participate in: walking frequency: 5-6 times per week seatbelt use: always do you feel safe at home: Yes 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 history: [employer]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 Denies any symptoms. Review of Systems ROS Unobtainable: Denies due to encephalopathy Constitutional Constitutional ED: Denies chills Eyes Eyes: Denies blurry vision ENT ENT ED: Denies ear pain Cardiovascular Cardiovascular: Denies chest pain Respiratory/Chest Respiratory/Chest: Denies cough Gastrointestinal Gastrointestinal: Denies abdominal pain Genitourinary Genitourinary ED: Denies dysuria Musculoskeletal Musculoskeletal: Denies arthralgias Integumentary Denies abscess Neurologic Neurologic: Reports headache(s) and other Details: Brief headache today resolved. Currently no headache. Psychiatric Psychiatric: Denies anxiety Endocrine Endocrinology: Denies cold intolerance Allergic/Immunologic Allergic/Immunologic ED: Denies tongue swelling EXAM Physical Exam Narrative Exam Narrative: Well-appearing 66-year-old female. Initial blood pressure 175/96. It was repeated it was 167/92. She has no complaints. H EENT exam unremarkable. Neck nontender. Lungs are clear. Heart regular rhythm. Abdomen soft nontender. Moving all 4 extremities. Calves are nontender without edema. Neurologically she is awake and alert with no focal motor deficits. NIH is 0. Fingertip to nose within normal limits. Equal symmetrical manager of revenue strength. Dorsi plantarflexion intact. Const Vital Signs: 09/01/21 20:29 09/01/21 20:39 Temperature 97.3 F L Temperature Source Temporal Pulse Rate 75 Respiratory Rate 15 Respiratory Effort Normal Respiratory Pattern Normal Blood Pressure 175/96 H Blood Pressure Mean 122 Pulse Ox 100 Oxygen Delivery Method Room Air Positive well nourished and well developed; Negative for cachectic, contractures or unkempt General Appearance ED: well developed; Negative for unkempt, cachectic or contractures Nutritional Appearance: Negative for cachectic HEENT Reports moist mucous membranes; Denies dry mucous membranes Negative for trauma or tenderness Mouth ED: No dry mucous membranes Mouth: No dry mucous membranes Eyes PERRL and EOMs intact bilaterally General Eye ED: Negative for pale conjunctiva or scleral icterus Neck no lymphadenopathy, supple and no JVD General: Negative for tenderness Chest Wall inspection of chest normal and palpation of chest normal Resp normal respiratory effort and clear to auscultation bilaterally Effort and Inspection: Negative for retractions Auscultation: Negative for rales or rhonchi Cardio regular rate, regular rhythm, S1 normal heart sound and S2 normal heart sound GI normal to inspection, nondistended, normoactive bowel sounds, non-tender, non- distended and no masses; Negative for hepatosplenomegaly Inspection: Negative for abdominal distention Auscultation: normoactive bowel sounds Palpation: soft; Negative for tender, guarding or splenomegaly Back/Spine no CVA tenderness General Back: Negative for CVA tenderness Cervical Spine: Negative for cervical spine tenderness Thoracic Spine / Upper Back: Negative for thoracic spinal tenderness Extremity normal to inspection General Extremety ED: Negative for edema or tenderness General Extremity: Negative for edema Neuro oriented x3 and CN's II-XII intact bilaterally Sensorium / Orientation: alert; Negative for orientation impaired, lethargic or stuporous Motor Exam: strength 5/5 throughout; Negative for general weakness or strength abnormal Psych mental status grossly normal Appearance: Negative for unkempt Attitude: No agitated Mood & Affect: Negative for depressed or anxious Skin no rashes or lesions noted and no wounds Rashes: No rashes noted MDM MDM MDM Narrative Medical decision making narrative: Patient with elevated blood pressure on chemotherapy for endometrial cancer of metastases. Otherwise exam normal. Her current blood pressure is 167/92. We are going to watch the patient and see what her blood pressure does before giving her any medication. She had labs 2 days ago including a CMP and CBC which were basically unrem arkable. I know that she needs any acute labs tonight. Patient was observed in the emergency department for 1 to 2 hours. Blood pressure progressively is improving. Currently on psych 145/75. Exam is unchanged. Her and her are comfortable with her being discharged home. I spoke to the oncology nurse practitioner I work on a hold her oral chemotherapy medication because it may be causing her elevated blood pressure. And they will reassess this on Saturday to decide if they want to continue it or not. Patient is doing well at 10:10 PM and will be discharged to home. Discharge Plan Triage Chief Complaint: Hypertension ED Provider: Myron Alejo Dx/Rx/DC Orders Clinical Impression: Elevated blood pressure reading, Hx of cancer of endometrium Instructions: ED Hypertension, To Be Confirmed Prescriptions: No Action pantoprazole [Protonix] 20 mg tablet,delayed release (DR/EC) 20 mg PO DAILY multivitamin Tablet 1 tab PO DAILY magnesium citrate 100 mg capsule 300 mg PO DAILY lidocaine-prilocaine 2.5-2.5 % cream 1 applic topical ONCE PRN (Reason: port access) 30 Days Qty: 30 2RF prochlorperazine maleate 10 mg tablet 10 mg PO Q6H PRN (Reason: nausea and vomiting) Qty: 30 2RF dexamethasone [Decadron] 4 mg tablet 4 mg PO DAILY Qty: 14 0RF Xarelto 10 mg tablet 10 mg PO DAILY Qty: 30 2RF Paxlovid (EUA) 150 mg x 2- 100 mg tablet See Rx Instructions PO .COMPLEX Qty: 30 0RF Rx Instructions: take TWO 150 mg tablets of nirmatrelvir with ONE 100 mg tablet of ritonavir twice daily for 5 days PO (pt no longer on xarelto and decadron) L-Glutamine DAILY collagen (bovine) 100 % Powder TOPICAL DAILY ondansetron 8 mg tablet,disintegrating 8 mg PO Q8H PRN (Reason: nausea and vomiting) Qty: 30 2RF Primary Care Provider: Kwasi Reyes Referrals: Kwasi Reyes MD [Primary Care Provider] - Sylwia Quiroz MAINTENANCE OF WAY SUPERVISOR, MAINTENANCE OF WAY SUPERVISOR-C [Nurse Practitioner] - As soon as possible Activity Restrictions/Additional Instructions: Follow-up with your oncology nurse practitioner and your oncologist on Saturday. They will determine if they are going to continue your oral chemotherapy or stop it. Hold your oral chemotherapy the next 3 days until you talk to them on Saturday to determine if this can be restarted. Check your blood pressure twice on Saturday and Saturday and log those readings to let your doctor and nurse practitioner know Saturday. Disposition Disposition: Home, Self Care
[2021-09-01 22:19] VITALS: BP 146/81; PULSE 83; RESP 14; O2SAT 94
== END 2021-09-01 22:20 | disposition home or self-care (01) ==
PROVIDERS: Emergency Provider Emergency Medicine; PCP Internal Medicine; Visit Provider Emergency Medicine
DX: R03.0 Elevated blood-pressure reading, without diagnosis of hypertension (principal); C54.1 Malignant neoplasm of endometrium; Z80.1 Family history of malignant neoplasm of trachea, bronchus and lung; Z86.16 Personal history of COVID-19
CPT/HCPCS: 99282

== ENCOUNTER → 2021-09-20 | Outpatient (CLI) | payer MEDICARE, SELFPAY ==
--- NOTE | 2021-09-20 08:08 | EKG12_ITS ---
Test Reason : HIGH RISK MED Blood Pressure : / mmHG Vent. Rate : 069 BPM Atrial Rate : 069 BPM P-R Int : 160 ms QRS Dur : 072 ms QT Int : 414 ms P-R-T Axes : 033 -17 013 degrees QTc Int : 443 ms Normal sinus rhythm Voltage criteria for left ventricular hypertrophy Abnormal ECG Confirmed by DILCIA CHRISTENSEN, MARA ([id number]), television news video editor ALANA ZUÑIGA ([id number]) on 09/21/2021 9:10:17 AM Referred By: Silvano Corona Confirmed By:MARA HA MD
== END | disposition home or self-care (01) ==
LOC: PSN 08:07
PROVIDERS: PCP Internal Medicine; Referring Provider Internal Medicine Medical Oncology; Visit Provider Internal Medicine Medical Oncology
DX: C54.1 Malignant neoplasm of endometrium (principal); Z29.8 Encounter for other specified prophylactic measures
CPT/HCPCS: 93005

== ENCOUNTER → 2021-10-11 | Outpatient (CLI) | payer MEDICARE, SELFPAY ==
--- NOTE | 2021-10-11 06:17 | EKG12_ITS ---
Test Reason : HIGH RISK MEDS Blood Pressure : / mmHG Vent. Rate : 066 BPM Atrial Rate : 066 BPM P-R Int : 122 ms QRS Dur : 070 ms QT Int : 428 ms P-R-T Axes : -22 -13 040 degrees QTc Int : 448 ms Normal sinus rhythm Nonspecific T wave abnormality Abnormal ECG Confirmed by WILFRED CHRISTENSEN, NADIRA ([id number]), editor book ALANA ZUÑIGA ([id number]) on 10/12/2021 12:57:00 PM Referred By: YOANNA Confirmed By:NADIRA HARDIN MD
[2021-10-11 07:00] LABS: Cholesterol 256 mg/dL (200); High Density Lipoprotein 73 mg/dL; Triglycerides 106 mg/dL; Very Low Density Lipoprotein 21 mg/dL (5-40)
[2021-10-12 12:52] LABS: Cancer Antigen 125 7.5 U/mL (0.0-38.1)
== END | disposition home or self-care (01) ==
LOC: PSN 06:08
PROVIDERS: Nurse Practitioner Family; Obstetrics & Gynecology; PCP Internal Medicine; Visit Provider Internal Medicine Medical Oncology
DX: C54.1 Malignant neoplasm of endometrium (principal); I10 Essential (primary) hypertension; Z29.8 Encounter for other specified prophylactic measures
CPT/HCPCS: 36415; 80061; 82024; 82533; 86304; 93005

== ENCOUNTER → 2021-10-24 | Outpatient (CLI) | payer MEDICARE, SELFPAY ==
--- NOTE | 2021-10-24 08:22 | CT_ITS ---
STUDY: CT CHEST, ABDOMEN T PELVIS WITH CONTRAST REASON FOR EXAM: Female, 66 years old. ASSESS TREATMENT RESPONSE-IV ONLY-TO TAKE BENADRYL. Metastatic endometrial carcinoma. RADIATION DOSAGE (If Supplied By Facility): CTDIvol = ( 13.46 ) mGy, DLP = ( 1237.36 ) mGycm TECHNIQUE: Transaxial imaging was performed following intravenous administration of Oral and amp; IV Readi-CAT and amp; 100mL Isovue-300. Multiplanar coronal and sagittal images were reformatted. Individualized dose optimization techniques were used for this CT. COMPARISON: Comparison is made with prior examination of 03/14/2021. FINDINGS: A right-sided portacatheter is seen with the tip in the superior vena cava. Mild heterogeneity of the right lobe of the thyroid gland suggestive of goiter as change. Small benign-appearing bilateral axillary lymph nodes. CHEST Stable 6 mm noncalcified nodule in the posterior aspect of the left upper lobe adjacent to a vascular structure. There is no demonstrated pleural abnormality. There are calcifications of the coronary arteries. There are multiple small lymph nodes within the mediastinum, which are normal in size and morphology most compatible with reactive lymph hyperplasia. Normal hilar regions. Normal unenhanced pulmonary arteries. Normal aorta arch and descending thoracic aorta. There are degenerative changes of the thoracic spine. Small hiatal hernia. ABDOMEN There is hepatomegaly with diffuse hepatic enlargement. Normal gallbladder and extrahepatic biliary system. Normal spleen. Normal pancreas. Normal bilateral adrenal glands. Normal right kidney. 1 cm cyst in the superior aspect of the left kidney. Normal visualized stomach. Normal small intestine. Normal colon. There is non-visualization of the appendix. Normal abdominal aorta. Normal inferior vena cava. Normal retroperitoneum. Small bilateral inguinal hernias containing fat slightly more prominent on the left side. There are mild degenerative changes of the visualized lumbar spine. PELVIS Normal urinary bladder. The patient is status post hysterectomy. Normal visualized small intestine. Normal visualized colon. There is no pelvic fluid. There is no pelvic lymphadenopathy or mass lesion. Normal visualized pelvic arteries. CT/CT Chest, Abd, Pel w/Contrast IMPRESSION: Stable examination Electronically Signed: Milan Tello MD at 13:18 EDT ,
[2021-10-24] MEDS: 0.9 % NaCl (Sterile) Posiflush 10 mL IV (08:30)
[2021-10-24] MEDS: 0.9% Saline Lock 10 ML Syringe IV (08:45)
== END | disposition home or self-care (01) ==
LOC: CT 08:19
PROVIDERS: PCP Internal Medicine; Referring Provider Internal Medicine Medical Oncology; Visit Provider Internal Medicine Medical Oncology
DX: C54.1 Malignant neoplasm of endometrium (principal); C77.2 Secondary and unspecified malignant neoplasm of intra-abdominal lymph nodes
CPT/HCPCS: 71260; 74177; Q9967; A4216

== ENCOUNTER → 2022-01-31 | Outpatient (CLI) | payer MEDICARE, SELFPAY ==
--- NOTE | 2022-01-31 12:10 | EKG12_ITS ---
Test Reason : CHEST TIGHTNESS Blood Pressure : / mmHG Vent. Rate : 070 BPM Atrial Rate : 070 BPM P-R Int : 166 ms QRS Dur : 080 ms QT Int : 372 ms P-R-T Axes : 018 -18 047 degrees QTc Int : 401 ms Normal sinus rhythm Voltage criteria for left ventricular hypertrophy Nonspecific T wave abnormality Abnormal ECG Confirmed by WILFRED CHRISTENSEN, NADIRA ([id number]), video news editor ALANA ZUÑIGA ([id number]) on 02/02/2022 7:18:16 AM Referred By: BETO Confirmed By:NADIRA HARDIN MD
== END | disposition home or self-care (01) ==
LOC: PSN 12:09
PROVIDERS: PCP Internal Medicine; Visit Provider Nurse Practitioner Family
DX: C54.1 Malignant neoplasm of endometrium (principal); R07.89 Other chest pain; Z51.81 Encounter for therapeutic drug level monitoring; Z79.899 Other long term (current) drug therapy
CPT/HCPCS: 93005

== ENCOUNTER → 2022-02-05 | Outpatient (CLI) | payer MEDICARE, SELFPAY ==
--- NOTE | 2022-02-05 14:29 | ECHOD_ITS ---
Version 2 Reason For Study: OHTER Procedure This was a 2D Doppler, Color Flow transthoracic echocardiogram. Exam performed in department. Left Ventricle Normal LV size. Left ventricular systolic function is normal. The estimated ejection fraction is 60 %. No regional wall motion abnormalities noted. Right Ventricle Normal RV size. Normal systolic function. Atria Normal left atrium. Normal right atrium. Catheter noted in RA with possible mobile mass attached. Mitral Valve Normal mitral valve. Mild (1+) eccentric mitral valve insufficiency. Tricuspid Valve Normal tricuspid valve. Mild tricuspid valve insufficiency. Aortic Valve Normal aortic valve. Trisinus/trileaflet aortic valve. Pulmonic Valve Normal pulmonic valve. Great Vessels Normal aortic root. The pulmonary artery is normal size. Normal inferior vena cava. Pericardium/Pleural No pericardial effusion. MMode/2D Measurements & Calculations LVIDd: 4.0 cm IVSd: 1.1 cm Ao root diam: 3.1 cm LVIDs: 2.6 cm LVPWd: 0.94 cm FS: 34.3 % LAV(MOD-bp): 55.3 ml LVAd ap4: 29.3 cm2 LVAd ap2: 28.8 cm2 LAV(MOD-bp) Indexed: 30.3 ml/m2 LVLd ap4: 8.5 cm LVLd ap2: 8.0 cm LAV(MOD-sp2): 59.9 ml EDV(MOD-sp4): 82.5 ml EDV(MOD-sp2): 86.9 ml LAV(MOD-sp4): 50.2 ml EDV(sp4-el): 86.0 ml EDV(sp2-el): 87.9 ml LVAs ap4: 17.3 cm2 LVAs ap2: 16.3 cm2 LVLs ap4: 6.8 cm LVLs ap2: 6.7 cm ESV(MOD-sp4): 36.1 ml ESV(MOD-sp2): 33.4 ml ESV(sp4-el): 37.3 ml ESV(sp2-el): 33.6 ml EF(MOD-sp4): 56.3 % EF(MOD-sp2): 61.6 % EF(sp4-el): 56.6 % SV(MOD-sp4): 46.4 ml SV(MOD-sp2): 53.5 ml SV(sp4-el): 48.6 ml LA dimension(2D): 3.5 cm LA A4 area: 18.3 cm2 RA A4 area: 13.5 cm2 Time Measurements MV dec time: 0.20 sec Doppler Measurements & Calculations MV E max troy: 80.4 cm/sec Lat Peak E' Troy: 12.4 cm/sec Med Peak E' Troy: 7.0 cm/sec MV A max troy: 88.0 cm/sec E/E' lat: 6.5 E/E' med: 11.5 MV E/A: 0.91 MV V2 max: 84.9 cm/sec MV dec slope: 401.8 cm/sec2 Ao V2 max: 142.9 cm/sec MV max P.9 mmHg Ao max P.2 mmHg MV V2 mean: 60.6 cm/sec Ao V2 mean: 101.2 cm/sec MV mean P.6 mmHg Ao mean P.7 mmHg MV V2 VTI: 32.7 cm Ao V2 VTI: 35.5 cm LV V1 max: 90.8 cm/sec PA V2 max: 80.0 cm/sec LV V1 max P.3 mmHg PA V2 mean: 57.8 cm/sec LV V1 mean P.2 mmHg LV V1 mean: 71.4 cm/sec LV V1 VTI: 23.8 cm ECHO/Echo Complete Interpretation Summary Normal LV size. Left ventricular systolic function is normal. The estimated ejection fraction is 60 %. Mild tricuspid valve insufficiency. Catheter noted in RA with possible mobile mass attached Ordering Physician: Sylwia Quiroz Referring Physician: Sylwia Quiroz Performed By: Ida Rosenthal RCS
== END | disposition home or self-care (01) ==
PROVIDERS: PCP Internal Medicine; Referring Provider Nurse Practitioner Family; Visit Provider Nurse Practitioner Family
DX: R07.89 Other chest pain (principal); Z51.81 Encounter for therapeutic drug level monitoring; Z79.899 Other long term (current) drug therapy
CPT/HCPCS: 93306

== ENCOUNTER 2022-02-06 19:30 | Emergency (ER) | payer MEDICARE, SELFPAY ==
[2022-02-06 19:30] VITALS: BP 140/71; PULSE 72; RESP 18; TEMP 36.4; O2SAT 99; BMI 31.0
--- NOTE | 2022-02-06 20:38 | EKG12_ITS ---
Test Reason : DYSRHYTHMIA Blood Pressure : / mmHG Vent. Rate : 070 BPM Atrial Rate : 070 BPM P-R Int : 164 ms QRS Dur : 072 ms QT Int : 418 ms P-R-T Axes : 023 008 051 degrees QTc Int : 451 ms Normal sinus rhythm Septal infarct , age undetermined Abnormal ECG Confirmed by WILFRED CHRISTENSEN, NADIRA ([id number]), editor producer ALANA ZUÑIGA ([id number]) on 02/07/2022 9:13:11 AM Referred By: JOSEPH Confirmed By:NADIRA HARDIN MD
--- NOTE | 2022-02-06 20:59 | CT_ITS ---
STUDY: CTA CHEST REASON FOR EXAM: Female, 66 years old. PE concern RADIATION DOSAGE (If Supplied By Facility): CTDIvol = ( 10.355 ) mGy, DLP = ( 370.26 ) mGycm TECHNIQUE: The examination was performed with the intravenous administration of IV 75mL Isovue-370. Post-processing of the angiographic images was performed, with multiplanar reformation and 3D reconstruction. Individualized dose optimization techniques were used for this CT. COMPARISON: CT chest, abdomen and pelvis 10/24/2021. Also compared with chest CT 03/14/2021. FINDINGS: Adequate density of contrast in the pulmonary arteries and no significant motion; diagnostic exam. No pulmonary artery filling defect to suggest pulmonary embolism. There is no evidence of right heart strain. Extrathoracic soft tissues show no axillary lymphadenopathy. Thyroid gland is normal. Normal size heart. No pericardial fluid. No mediastinal or hilar lymphadenopathy. No hiatal hernia. Right-sided tunneled chest port with the tip at the level of the distal right atrium. Tubular structure posterior left upper lobe suggesting vascular lesion unchanged dating back to 2020. Lungs are otherwise clear without nodule, mass, near airspace opacity, pleural effusion or pneumothorax. No fracture or focal osseous lesion. Visualized solid and hollow viscus organs are within normal limits of the exam. CT/CTA Chest W/WO Contrast IMPRESSION: No pulmonary embolism or acute cardiopulmonary disease. Tubular opacity posterior left upper lobe, unchanged dating back to 2020, suspected represent vascular lesion. Electronically Signed: Andrew Sow DO at 23:01 EST ,
--- NOTE | 2022-02-06 21:02 | ED.VIS.CHEST ---
HPI History of Present Illness Chief Complaint: Weakness Detail of Chief Complaint: Chest tightness Informant: patient and spouse/S.O. Onset/Context/Timing Onset: Days Activity at onset: gradual Timing: Continuous Quality: Positive for Aching and Tightness Location: Substernal, Right Parasternal, Left Parasternal, Right Chest and Left Chest Current Severity: Mild Maximum Severity: Mild Worsened By: Nothing Relieved By: Nothing Associated Symptoms: Negative for Nausea, Vomiting, Diaphoresis, Dyspnea, Cough, Fever, Lightheadedness, Acid Reflux or Palpitations Narrative Narrative: 66-year-old female being treated for endometrial cancer with metastases to abdomen and lungs. Currently undergoing oral chemotherapy and immunotherapy every 3 weeks. No recent hospitalization. Is having chest tightness. No history of DVT or PE. There is a questionable intracardiac clot seen on echo. She denies any hemoptysis. The pain is not pleuritic. They sent her in the emergency department to be evaluated. No cardiac history. No exertional chest pain. Prior Similar Symptoms: No Recent Illness/Hospitalization: No CVD Risk Factors: Negative for Diabetes or Smoking PE Risk Factors: Positive for Cancer; Negative for Recent Travel/Surgery, Recent Immobilization, Prior DVT or PE or OCP + Smoking + >/=35 TAD Risk Factors: Negative for Marfan's Syndrome [facility] Medical History Arthralgia Cancer Constipation COVID-19 Diarrhea due to drug Elevated BP without diagnosis of hypertension Encounter for chemotherapy management Encounter for education Encounter for immunotherapy Encounter for monitoring cardiotoxic drug therapy Fatigue Gastric reflux Hypertension Hypotension Increased appetite Left leg pain Left leg swelling Neuropathy due to chemotherapeutic drug Non-smoker Ovarian cancer Papillary serous adenocarcinoma of ovary Port-A-Cath in place Superficial vein thrombosis Thrombosis complicating venous access device Tightness in chest Upper abdominal pain Vaginal candidiasis Home Medications pantoprazole 20 mg tablet,delayed release (Protonix) 20 mg PO DAILY 01/14/18 [History Last Taken Unknown] lidocaine-prilocaine 2.5 %-2.5 % topical cream 1 applic topical ONCE PRN port access 30 days #30 grams 10/05/20 [Rx Last Taken Unknown] magnesium citrate 100 mg capsule 300 mg PO DAILY 10/05/20 [History Last Taken Unknown] multivitamin 1 tab PO DAILY 10/05/20 [History Last Taken Unknown] prochlorperazine maleate 10 mg tablet 10 mg PO Q6H PRN nausea and vomiting #30 tabs 10/05/20 [Rx Last Taken Unknown] ondansetron 8 mg disintegrating tablet 8 mg PO Q8H PRN nausea and vomiting #30 tabs 09/01/21 [Rx Last Taken Unknown] amlodipine 5 mg tablet 5 mg PO BID #60 tabs 11/01/21 [Rx Last Taken Unknown] lenvatinib 10 mg/day (10 mg x 1) capsule 10 mg PO DAILY #30 caps 12/14/21 [Rx Last Taken Unknown] losartan 50 mg tablet 50 mg PO BID #180 tabs 12/20/21 [Rx Last Taken Unknown] levothyroxine 75 mcg tablet 75 mcg PO DAILY 60 days #60 tabs 01/15/22 [Rx Last Taken Unknown] zinc 25 mg tablet 25 mg PO DAILY 01/31/22 [History Last Taken Unknown] Xarelto 15 mg tablet (rivaroxaban) 15 mg PO BID #42 tabs 02/06/22 [Rx Last Taken Unknown] Allergy/AdvReac Type Severity Reaction Status Date / Time Iodinated Contrast Media Allergy Severe Swelling Verified 02/06/22 19:33 Family History Mother Cancer Cervical cancer at 35 years and lung cancer later in life Father Cancer Sister Cancer Cervical cancer Brother Diabetes Surgical History H/O total hysterectomy History of delivery Hx of breast reduction, elective Social History Smoking Status: Never smoker alcohol intake: current details: social substance use type: does not use caffeine: No what type of physical activity do you participate in: walking frequency: 5-6 times per week seatbelt use: always do you feel safe at home: Yes 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 history: [employer]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 No recent illness. Review of Systems ROS Unobtainable: Denies due to encephalopathy Constitutional Constitutional ED: Denies chills or fever(s) Eyes Eyes: Reports none ENT ENT ED: Denies ear pain Cardiovascular Cardiovascular: Reports chest pain; Denies palpitations or racing heartbeat Respiratory/Chest Respiratory/Chest: Denies cough or dyspnea Gastrointestinal Gastrointestinal: Denies abdominal pain Genitourinary Genitourinary ED: Denies dysuria or hematuria Musculoskeletal Musculoskeletal: Denies arthralgias Integumentary Denies abscess Neurologic Neurologic: Denies headache(s) Psychiatric Psychiatric: Denies anxiety Endocrine Endocrinology: Denies cold intolerance Hematologic/Lymphatic Hematologic/Lymphatic: Denies easy bleeding Allergic/Immunologic Allergic/Immunologic ED: Denies mouth swelling or tongue swelling EXAM Physical Exam Narrative Exam Narrative: 66-year-old female no acute distress. Vital signs stable afebrile. Pulse ox 99% on room air no signs hypoxia. Patient in no distress. Sitting upright in bed. in the room. H EENT exam unremarkable. Neck nontender. Lungs clear to auscultation bilaterally. Heart regular rate and rhythm rate about 70 no murmur. Chest wall no significant tenderness. She has a port on her right chest wall. Abdomen soft nontender. Moving all 4 extremities. Calves are nontender without edema or cords. Equal symmetrical radial pulses. Moving all 4 extremities. Neurologic exam normal. She is awake and alert. No focal motor deficits. Const Vital Signs: 02/06/22 19:30 02/06/22 20:27 02/06/22 21:08 Temperature 97.5 F L Temperature Source Temporal Pulse Rate 72 Respiratory Rate 18 Respiratory Pattern Normal Blood Pressure 140/71 H Blood Pressure Mean 94 Pulse Ox 99 Oxygen Delivery Method Room Air Room Air Positive well nourished and well developed; Negative for obese, cachectic, contractures or unkempt General Appearance ED: well developed and NAD; Negative for unkempt, cachectic, contractures or pallor Nutritional Appearance: Negative for cachectic or obese HEENT Reports moist mucous membranes normocephalic and atraumatic; Negative for trauma or tenderness Eyes PERRL and EOMs intact bilaterally General Eye ED: Negative for pale conjunctiva or scleral icterus Neck no lymphadenopathy, supple and no JVD General: Negative for tenderness Chest Wall inspection of chest normal and palpation of chest normal Chest: Negative for tenderness Resp clear to auscultation bilaterally Effort and Inspection: Negative for respiratory distress Auscultation: Negative for rales, rhonchi or wheezes Cardio regular rate, regular rhythm, S1 normal heart sound, S2 normal heart sound and no murmurs Rate: Negative for bradycardia Rhythm: Negative for abnormal rhythm Peripheral Pulses: pulses 2+ throughout GI normal to inspection, nondistended, normoactive bowel sounds, soft to palpation, non-tender and non-distended Auscultation: Negative for hyperactive bowel sounds Palpation: Negative for splenomegaly Back/Spine no CVA tenderness and no thoracic nor lumbar tenderness General Back: Negative for CVA tenderness Cervical Spine: Negative for cervical spine tenderness Extremity normal to inspection General Extremety ED: Negative for edema or pulses abnormal General Extremity: Negative for edema or pulses abnormal Neuro oriented x3 Sensorium / Orientation: awake, alert, oriented to person, oriented to place and oriented to time; Negative for confused, lethargic or stuporous Motor Exam: strength 5/5 throughout Psych mental status grossly normal Appearance: Negative for unkempt Attitude: No agitated Mood & Affect: Negative for depressed, anxious or tearful Skin no rashes or lesions noted and no wounds General Skin Exam: Negative for jaundice or pallor Rashes: No rashes noted Trauma: Negative for abrasion or laceration Heart Score History: Slightly/Non-Suspicious ECG: Normal Age: >/= 65 years Risk Factors: No Risk Factors Troponin: </= Normal Limit Score: 2 MDM MDM MDM Narrative Medical decision making narrative: 66-year-old with pelvic cancer with metastases. With atypical chest pain. Clinically it IS cardiac. Rule out PE versus other etiologies. CAT scan labs being obtained. She undergo cardiac work-up. She does have a history to iodine and will need to be pretreated with Solu-Medrol and Benadryl prior to the CAT scan. Clinically patient is doing well at 10 PM. Awaiting her CAT scan. We went over her test results. Clinically looks well. Lab Data Attestation: I reviewed the patient's lab results. Lab results narrative: Chest x-ray negative. CBC unremarkable white count of 5.5. H&H of 13 and 39. D-dimer -0.4. Electrolytes unremarkable gap of 5. BUN of 29 creatinine 0.76. Glucose 129. Troponin 7. Labs: Laboratory Results - last 24 hr 02/06/22 02/06/22 02/06/22 21:03 21:03 21:03 WBC 5.5 RBC 4.30 Hgb 13.0 Hct 39.3 MCV 91.4 MCH 30.2 MCHC 33.1 RDW Std Deviation 44.8 H RDW Coeff of José Antonio 13.2 Plt Count 256 MPV 9.0 Immature Gran % (Auto) 0.200 Neut % (Auto) 46.4 L Lymph % (Auto) 42.2 H Forsyth % (Auto) 9.5 Eos % (Auto) 1.3 Baso % (Auto) 0.4 Absolute Neuts (auto) 2.6 Absolute Lymphs (auto) 2.32 Nucleated RBC % 0 D-Dimer Quant (PE/DVT) 0.40 Sodium 142 Potassium 3.7 Chloride 106 Carbon Dioxide 31.0 Anion Gap 5 BUN 29 H Creatinine 0.76 Estim Creat Clear Calc 47.14 Est GFR (MDRD) Af Amer 97 Est GFR (MDRD) Non-Af 80 BUN/Creatinine Ratio 37.9 H Glucose 129 H Calcium 9.3 Troponin I High Sens 7 Radiography Chest X-Ray - ED: 1 View, Read by ED Physician, Read by Radiologist, Heart, Lungs, Mediastinum, Bony Structures and No Acute Disease Diagnostic Testing: Clinical Impression(s) from Imaging Studies Chest X-Ray 02/06/22 21:07 IMPRESSION: 1. No radiographic evidence of acute cardiopulmonary disease. Electronically Signed: Andrew Sow DO at 21:33 EST , Chest x-ray, portable, single view interpreted by myself and the radiologist shows no acute abnormality. Normal cardiac silhouette. Mid port right upper chest wall. No pneumonia. No infiltrates. No fluid. No masses on the chest x-ray. No significant atelectasis. Rhythm Strip Rhythm Strip: Sinus Rhythm Rate: 70 Ectopy: None EKG Initial EKG: Attestation: I personally reviewed and interpreted this EKG as follows: Interpretation: Sinus Rhythm and No Acute Injury Pattern Comments: Normal sinus rhythm rate is 70 no acute signs of WA or ischemia. Discharge Plan Triage Chief Complaint: Weakness ED Provider: Myron Alejo Dx/Rx/DC Orders Prescriptions: No Action pantoprazole [Protonix] 20 mg tablet,delayed release (DR/EC) 20 mg PO DAILY multivitamin Tablet 1 tab PO DAILY magnesium citrate 100 mg capsule 300 mg PO DAILY lidocaine-prilocaine 2.5-2.5 % cream 1 applic topical ONCE PRN (Reason: port access) 30 Days Qty: 30 2RF prochlorperazine maleate 10 mg tablet 10 mg PO Q6H PRN (Reason: nausea and vomiting) Qty: 30 2RF amlodipine 5 mg tablet 5 mg PO BID Qty: 60 3RF zinc 25 mg tablet 25 mg PO DAILY ondansetron 8 mg tablet,disintegrating 8 mg PO Q8H PRN (Reason: nausea and vomiting) Qty: 30 2RF lenvatinib 10 mg/day (10 mg x 1) capsule 10 mg PO DAILY Qty: 30 2RF losartan 50 mg tablet 50 mg PO BID Qty: 180 3RF levothyroxine 75 mcg tablet 75 mcg PO DAILY 60 Days Qty: 60 2RF Xarelto 15 mg tablet 15 mg PO BID Qty: 42 0RF Rx Instructions: must administer with evening meal Primary Care Provider: Kwasi Reyes Referrals: Kwasi Reyes MD [Primary Care Provider] -
--- NOTE | 2022-02-06 21:07 | RAD_ITS ---
INDICATION: chest pain EXAMINATION/TECHNIQUE: X-RAY - XR Chest 1 View COMPARISON: January 10 01/10/2021 chest x-ray. Also compared with PET/CT 01/24/2022. FINDINGS: LINES/DEVICES: Right sided, internal jugular, tunneled chest port without disruption or kinking. Tip in the cavoatrial junction, unchanged. LUNGS: Symmetric normal lung volumes. No airspace opacity or abnormal interstitial pattern. No nodule or mass. No pleural effusion or pneumothorax. MEDIASTINUM AND CARDIOVASCULAR STRUCTURES: Normal size and contour of the cardiomediastinal silhouette. No evidence of pulmonary vascular congestion. BONES AND SOFT TISSUES: Age expected degenerative changes spine. RAD/Chest 1 View (Portable) IMPRESSION: 1. No radiographic evidence of acute cardiopulmonary disease. Electronically Signed: Andrew Sow DO at 21:33 EST ,
[2022-02-06 21:13] LABS: Absolute Lymphocyte Count 2.32 X10^3/uL (0.83-4.51); Absolute Neutrophil Count 2.6 X10^3/uL (2.0-7.7); Basophil# 0.02 X10^3/uL; Basophil% 0.4 % (0-1); Eosinophil# 0.07 X10^3/uL; Eosinophils% 1.3 % (0-5); Hematocrit 39.3 % (37-47); Lymphocyte # 2.32 X10^3/ul (0.83-4.51); Lymphocyte % 42.2 % (19-41); Mean Corp Hgb Conc 33.1 g/dL (32-36); Mean Corpuscular Hgb 30.2 pg (27.0-32.0); Mean Corpuscular Volume 91.4 fL (81-99); Monocyte# 0.52 X10^3/uL; Monocyte% 9.5 % (0-10); NRBC Flagged by Analyzer 0 % (0-5); Neutrophil # 2.56 X10^3/uL (2.7-7.7); Neutrophil % 46.4 % (47-70); Platelet Count 256 K/mm3 (150-450); RBC Distribution Width CV 13.2 % (11.6-14.6); RBC Distribution Width SD 44.8 fl (35.1-43.9); White Blood Count 5.5 K/mm3 (4.4-11.0)
[2022-02-06] MEDS: MethylPREDNISolone 125 MG/2 ML Vial IV (21:19)
[2022-02-06] MEDS: DiphenhydrAMINE 50 MG/ML Syringe 25 MG IV (21:19)
[2022-02-06 21:31] LABS: Anion Gap 5 (5-15); BUN 29 mg/dL (7-18); BUN/Creat Ratio 37.9 RATIO (10-20); Calcium,Total 9.3 mg/dL (8.5-10.1); Chloride 106 mmol/L (98-107); Creatinine, Serum 0.76 mg/dL (0.55-1.02); EST Glomerular Filtration Rate 80 mL/min (>60); Est Glom Filt Rate - Afr Amer 97 mL/min (>60); Estimated Creatinine Clearance 47.14 ml/min; Glucose 129 mg/dL (74-106); Potassium 3.7 mmol/L (3.5-5.1); Sodium Level 142 mmol/L (136-145); Troponin-I HS 7 pg/mL (3.0-54.0)
[2022-02-06 22:00] VITALS: PULSE 69; O2SAT 98
[2022-02-06 23:26] VITALS: BP 137/79; PULSE 79; RESP 20; O2SAT 97
== END 2022-02-06 23:27 | disposition home or self-care (01) ==
PROVIDERS: Emergency Provider Emergency Medicine; PCP Internal Medicine; Visit Provider Emergency Medicine
DX: C54.1 Malignant neoplasm of endometrium (principal); C79.89 Secondary malignant neoplasm of other specified sites; C76.3 Malignant neoplasm of pelvis; R07.89 Other chest pain; R53.1 Weakness; I10 Essential (primary) hypertension; Z80.1 Family history of malignant neoplasm of trachea, bronchus and lung
CPT/HCPCS: 36591; 71045; 71275; 80048; 84484; 85025; 85379; 93005; 96374; 96375; 99285; A4216

== ENCOUNTER 2022-02-15 13:42 | Emergency (ER) | payer MEDICARE, SELFPAY ==
[2022-02-15 13:44] VITALS: BP 142/70; PULSE 87; RESP 16; TEMP 36.8; O2SAT 98; BMI 30.2
--- NOTE | 2022-02-15 13:48 | RAD_ITS ---
STUDY: X-RAY CHEST REASON FOR EXAM: Female, 66 years old. Chest pain TECHNIQUE: Single AP portable view of the chest. COMPARISON: Comparison is made with prior study dated 02/06/2022. FINDINGS: A right-sided keena catheter seen with the tip in the right atrium. EKG electrodes are seen. The lungs are clear and expanded. There is no demonstrated pleural abnormality. Normal size heart. Normal mediastinum and ko. Normal visualized pulmonary arteries. There is atherosclerotic tortuosity of the aortic arch and descending thoracic aorta. There are diffuse degenerative changes of the visualized thoracic spine. Normal visualized ribs, clavicles, and shoulders. There is no demonstrated abnormality of the visualized soft tissue structures of the upper abdomen. RAD/Chest 1 View (Portable) IMPRESSION: No acute abnormality is seen. Electronically Signed: Milan Tello MD at 15:16 EST ,
[2022-02-15 14:07] VITALS: PULSE 85; RESP 15; O2SAT 98
[2022-02-15 14:11] VITALS: O2SAT 98
--- NOTE | 2022-02-15 14:25 | ED.VIS.CHEST ---
HPI History of Present Illness Chief Complaint: Chest Pain Onset/Context/Timing Onset: Days (2) Activity at onset: sudden Timing: Continuous Quality: Positive for Sharp and Tightness Location: - (Left jaw and left ear) Worsened By: Nothing Relieved By: Nothing Associated Symptoms: Negative for Nausea, Vomiting, Diaphoresis, Dyspnea, Cough, Fever, Lightheadedness, Acid Reflux or Palpitations Narrative Narrative: Patient presents with left jaw and left ear pain that has been constant for the past 2 days. Patient states it began rather suddenly. Patient describes it as sharp. Patient also admits to some mild tightness in her chest. Patient states nothing makes it worse and nothing makes it better. Patient denies any nausea or vomiting. Patient denies any shortness of breath or cough. Patient denies any lightheadedness or dizziness. Patient denies any heartburn or reflux. CVD Risk Factors: Positive for Hypertension; Negative for Diabetes, Hypercholesterolemia, Family History 1' </=55 or Smoking PE Risk Factors: Positive for Cancer; Negative for Recent Travel/Surgery [facility] Medical History Arthralgia Cancer Constipation COVID-19 Diarrhea due to drug Elevated BP without diagnosis of hypertension Encounter for chemotherapy management Encounter for education Encounter for immunotherapy Encounter for monitoring cardiotoxic drug therapy Fatigue Gastric reflux Hypertension Hypotension Increased appetite Left leg pain Left leg swelling Neuropathy due to chemotherapeutic drug Non-smoker Ovarian cancer Papillary serous adenocarcinoma of ovary Port-A-Cath in place Superficial vein thrombosis Thrombosis complicating venous access device Tightness in chest Upper abdominal pain Vaginal candidiasis Home Medications pantoprazole 20 mg tablet,delayed release (Protonix) 20 mg PO DAILY 01/14/18 [History Last Taken Unknown] lidocaine-prilocaine 2.5 %-2.5 % topical cream 1 applic topical ONCE PRN port access 30 days #30 grams 10/05/20 [Rx Last Taken Unknown] magnesium citrate 100 mg capsule 300 mg PO DAILY 10/05/20 [History Last Taken Unknown] multivitamin 1 tab PO DAILY 10/05/20 [History Last Taken Unknown] amlodipine 5 mg tablet 5 mg PO BID #60 tabs 11/01/21 [Rx Last Taken Unknown] lenvatinib 10 mg/day (10 mg x 1) capsule 10 mg PO DAILY #30 caps 12/14/21 [Rx Last Taken Unknown] losartan 50 mg tablet 50 mg PO BID #180 tabs 12/20/21 [Rx Last Taken Unknown] levothyroxine 75 mcg tablet 75 mcg PO DAILY 60 days #60 tabs 01/15/22 [Rx Last Taken Unknown] zinc 25 mg tablet 25 mg PO DAILY 01/31/22 [History Last Taken Unknown] Xarelto 15 mg tablet (rivaroxaban) 15 mg PO BID #42 tabs 02/06/22 [Rx Last Taken Unknown] Allergy/AdvReac Type Severity Reaction Status Date / Time Iodinated Contrast Media Allergy Severe Anaphylaxis Verified 02/15/22 13:44 Family History Mother Cancer Cervical cancer at 35 years and lung cancer later in life Father Cancer Sister Cancer Cervical cancer Brother Diabetes Surgical History H/O total hysterectomy History of delivery Hx of breast reduction, elective Social History Smoking Status: Never smoker alcohol intake: current details: social substance use type: does not use caffeine: No what type of physical activity do you participate in: walking frequency: 5-6 times per week seatbelt use: always do you feel safe at home: Yes 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 history: [employer]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 [employer] ROS ROS ED Constitutional Constitutional ED: Denies chills or fever(s) Eyes Eyes: Denies blurry vision or change in vision ENT ENT ED: Denies rhinorrhea or sore throat Cardiovascular Cardiovascular: Reports as per HPI and chest pain; Denies palpitations Respiratory/Chest Respiratory/Chest: Denies cough or dyspnea Gastrointestinal Gastrointestinal: Reports nausea; Denies abdominal pain or vomiting Genitourinary Genitourinary ED: Denies dysuria or hematuria Musculoskeletal Musculoskeletal: Reports back pain; Denies neck pain Integumentary Denies abscess or rash Neurologic Neurologic: Denies headache(s) or weakness Allergic/Immunologic Allergic/Immunologic ED: Denies mouth swelling or urticaria EXAM Physical Exam Const Vital Signs: 02/15/22 13:44 02/15/22 14:07 02/15/22 14:07 Temperature 98.3 F Temperature Source Temporal Pulse Rate 87 85 Respiratory Rate 16 15 Respiratory Effort Normal Blood Pressure 142/70 H Blood Pressure Mean 94 Pulse Ox 98 98 Oxygen Delivery Method Room Air Room Air 02/15/22 14:11 02/15/22 15:07 02/15/22 16:27 Temperature Temperature Source Pulse Rate 75 73 Respiratory Rate 14 13 Respiratory Effort Blood Pressure 111/94 H 112/55 L Blood Pressure Mean 99 74 Pulse Ox 98 98 98 Oxygen Delivery Method Room Air Room Air Room Air Positive well nourished and well developed General Appearance ED: well developed and NAD HEENT normocephalic and atraumatic Eyes PERRL and EOMs intact bilaterally Neck supple and no JVD Chest Wall palpation of chest normal Resp normal respiratory effort and clear to auscultation bilaterally Effort and Inspection: Negative for respiratory distress Cardio regular rate, regular rhythm and no murmurs GI normal to inspection, nondistended, normoactive bowel sounds, soft to palpation, non-tender and non-distended Extremity normal to inspection General Extremety ED: Negative for edema or tenderness General Extremity: Negative for edema Neuro oriented x3, CN's II-XII intact bilaterally and no sensory deficits noted Sensorium / Orientation: awake and alert Motor Exam: strength 5/5 throughout Psych mental status grossly normal Heart Score History: Slightly/Non-Suspicious ECG: Nonspecific Repolarization Age: >/= 65 years Risk Factors: 1 or 2 Risk Factors Troponin: </= Normal Limit Score: 4 MDM MDM MDM Narrative Medical decision making narrative: Patient was given aspirin. EKG was obtained. On my interpretation, it showed a normal sinus rhythm with a rate of 82. IA interval, QRS interval, and QTc intervals were all normal. [place] was normal. There are nonspecific ST-T wave changes. CBC was within normal limits. Basic metabolic profile was within normal limits. Initial high-sensitivity troponin was normal at 5.. BNP was normal at 27.8. Portable 1 view chest x-ray was obtained. On my interpretation, lung castellanos are clear. There is normal cardiac silhouette. Bony thorax is normal. There is no acute process noted. Radiologist also interpreted the x-ray and agrees. 2-hour repeat high-sensitivity troponin was normal at 8. Patient was advised of her findings. Patient has a HEART score of 4. Patient was instructed to follow-up with her primary care physician in 5 to 7 days. Patient was instructed to return if worse in any way. Patient understood and was agreeable with the plan. All questions were answered. Lab Data Labs: Laboratory Results - last 24 hr 02/15/22 02/15/22 02/15/22 14:20 14:20 14:20 WBC 6.6 RBC 4.45 Hgb 13.4 Hct 40.9 MCV 91.9 MCH 30.1 MCHC 32.8 RDW Std Deviation 45.1 H RDW Coeff of José Antonio 13.2 Plt Count 269 MPV 8.8 Immature Gran % (Auto) 0.300 Neut % (Auto) 59.8 Lymph % (Auto) 30.2 [place] % (Auto) 8.5 Eos % (Auto) 0.9 Baso % (Auto) 0.3 Absolute Neuts (auto) 3.9 Absolute Lymphs (auto) 1.98 Nucleated RBC % 0 Sodium 141 Potassium 3.6 Chloride 107 Carbon Dioxide 27.0 Anion Gap 7 BUN 18 Creatinine 0.78 Estim Creat Clear Calc 47.14 Est GFR (MDRD) Af Amer 95 Est GFR (MDRD) Non-Af 79 BUN/Creatinine Ratio 23.2 H Glucose 157 H Calcium 8.9 Troponin I High Sens 5 B-Natriuretic Peptide 27.8 02/15/22 16:55 WBC RBC Hgb Hct MCV MCH MCHC RDW Std Deviation RDW Coeff of José Antonio Plt Count MPV Immature Gran % (Auto) Neut % (Auto) Lymph % (Auto) [place] % (Auto) Eos % (Auto) Baso % (Auto) Absolute Neuts (auto) Absolute Lymphs (auto) Nucleated RBC % Sodium Potassium Chloride Carbon Dioxide Anion Gap BUN Creatinine Estim Creat Clear Calc Est GFR (MDRD) Af Amer Est GFR (MDRD) Non-Af BUN/Creatinine Ratio Glucose Calcium Troponin I High Sens 8 B-Natriuretic Peptide Radiography Chest X-Ray - ED: 1 View, Read by ED Physician, Read by Radiologist and No Acute Disease Diagnostic Testing: Clinical Impression(s) from Imaging Studies Chest X-Ray 02/15/22 13:48 IMPRESSION: No acute abnormality is seen. Electronically Signed: Milan Tello MD at 15:16 EST , EKG Initial EKG: Attestation: I personally reviewed and interpreted this EKG as follows: Interpretation: Sinus Rhythm (82) and Non-Specific ST Changes Prior EKG tracings: available for review Prior: Unchanged (02/06/2022) Discharge Plan Triage Chief Complaint: Chest Pain Other Complaint: Chest Other ED Provider: Boston Macias Dx/Rx/DC Orders Clinical Impression: Tightness in chest Instructions: ED Chest Pain, Uncertain Cause Prescriptions: No Action pantoprazole [Protonix] 20 mg tablet,delayed release (DR/EC) 20 mg PO DAILY multivitamin Tablet 1 tab PO DAILY magnesium citrate 100 mg capsule 300 mg PO DAILY lidocaine-prilocaine 2.5-2.5 % cream 1 applic topical ONCE PRN (Reason: port access) 30 Days Qty: 30 2RF amlodipine 5 mg tablet 5 mg PO BID Qty: 60 3RF zinc 25 mg tablet 25 mg PO DAILY lenvatinib 10 mg/day (10 mg x 1) capsule 10 mg PO DAILY Qty: 30 2RF losartan 50 mg tablet 50 mg PO BID Qty: 180 3RF levothyroxine 75 mcg tablet 75 mcg PO DAILY 60 Days Qty: 60 2RF Xarelto 15 mg tablet 15 mg PO BID Qty: 42 0RF Rx Instructions: must administer with evening meal Primary Care Provider: Kwasi Reyes Referrals: Kwasi Reyes MD [Primary Care Provider] - 3-5 Days Disposition Disposition: Home, Self Care
[2022-02-15 14:29] LABS: Absolute Lymphocyte Count 1.98 X10^3/uL (0.83-4.51); Absolute Neutrophil Count 3.9 X10^3/uL (2.0-7.7); Basophil# 0.02 X10^3/uL; Basophil% 0.3 % (0-1); Eosinophil# 0.06 X10^3/uL; Eosinophils% 0.9 % (0-5); Hematocrit 40.9 % (37-47); Hemoglobin 13.4 g/dL (12.0-15.0); Lymphocyte # 1.98 X10^3/ul (0.83-4.51); Lymphocyte % 30.2 % (19-41); Mean Corp Hgb Conc 32.8 g/dL (32-36); Mean Corpuscular Hgb 30.1 pg (27.0-32.0); Mean Corpuscular Volume 91.9 fL (81-99); Mean Platelet Vol. 8.8 fl (6.2-12.0); Monocyte# 0.56 X10^3/uL; Monocyte% 8.5 % (0-10); NRBC Flagged by Analyzer 0 % (0-5); Neutrophil # 3.92 X10^3/uL (2.7-7.7); Neutrophil % 59.8 % (47-70); Platelet Count 269 K/mm3 (150-450); RBC Distribution Width CV 13.2 % (11.6-14.6); RBC Distribution Width SD 45.1 fl (35.1-43.9); Red Blood Count 4.45 M/mm3 (4.2-5.4); White Blood Count 6.6 K/mm3 (4.4-11.0)
[2022-02-15 14:44] LABS: Anion Gap 7 (5-15); BUN 18 mg/dL (7-18); BUN/Creat Ratio 23.2 RATIO (10-20); Calcium,Total 8.9 mg/dL (8.5-10.1); Chloride 107 mmol/L (98-107); Creatinine, Serum 0.78 mg/dL (0.55-1.02); EST Glomerular Filtration Rate 79 mL/min (>60); Est Glom Filt Rate - Afr Amer 95 mL/min (>60); Estimated Creatinine Clearance 47.14 ml/min; Glucose 157 mg/dL (74-106); Potassium 3.6 mmol/L (3.5-5.1); Sodium Level 141 mmol/L (136-145); Troponin-I HS (w/2H Reflex) 5 pg/mL (3.0-54.0)
[2022-02-15 14:46] LABS: BNP,B-Type NATRIURETIC PEPTIDE 27.8 pg/mL (0-100)
[2022-02-15] MEDS: Aspirin 81 MG TAB.CHEW 324 MG PO (14:59)
[2022-02-15 15:07] VITALS: BP 111/94; PULSE 75; RESP 14; O2SAT 98
[2022-02-15 16:24] LABS: Reflex Troponin-HS? (from REC) Y
[2022-02-15 16:27] VITALS: BP 112/55; PULSE 73; RESP 13; O2SAT 98
[2022-02-15 17:33] LABS: Troponin-I HS 8 pg/mL (3.0-54.0)
== END 2022-02-15 18:30 | disposition home or self-care (01) ==
PROVIDERS: Emergency Provider Emergency Medicine; PCP Internal Medicine; Visit Provider Emergency Medicine
DX: R07.89 Other chest pain (principal); I10 Essential (primary) hypertension; H92.02 Otalgia, left ear; R68.84 Jaw pain
CPT/HCPCS: 36591; 71045; 80048; 83880; 84484; 85025; 93005; 99283; A4216

== ENCOUNTER → 2022-03-07 | Outpatient (CLI) | payer MEDICARE, SELFPAY ==
--- NOTE | 2022-03-07 09:39 | ECHOLONC_ITS ---
Reason For Study: Cardio Toxic Chemo Monitoring Procedure This was a limited 2D transthoracic echocardiogram. Myocardial strain analysis was performed in this exam to aid in the assessment of cardiac function. Exam performed in department. Left Ventricle Normal LV size. Left ventricular systolic function is normal. The estimated ejection fraction is 60 %. No regional wall motion abnormalities noted. Right Ventricle Normal RV size. Normal systolic function. Atria Normal left atrium. Normal right atrium. Catheter noted in right atrium filamentous structure still attached. Mitral Valve Normal mitral valve. Tricuspid Valve Normal tricuspid valve. Mild (1+) tricuspid valve insufficiency. Aortic Valve Trisinus/trileaflet aortic valve. Pulmonic Valve Normal pulmonic valve. Great Vessels Normal aortic root. The pulmonary artery is normal size. Normal inferior vena cava. Pericardium/Pleural No pericardial effusion. MMode/2D Measurements & Calculations LVIDd: 4.9 cm IVSd: 0.98 cm Ao root diam: 3.2 cm LVIDs: 3.3 cm LVPWd: 0.75 cm LA dimension: 3.8 cm FS: 32.4 % LVAd ap4: 24.9 cm2 SV(MOD-sp4): 33.6 ml SV(sp4-el): 36.3 ml LVLd ap4: 8.0 cm EDV(MOD-sp4): 63.0 ml EDV(sp4-el): 66.2 ml LVAs ap4: 15.0 cm2 LVLs ap4: 6.4 cm ESV(MOD-sp4): 29.4 ml ESV(sp4-el): 29.9 ml EF(MOD-sp4): 53.4 % EF(sp4-el): 54.8 % Doppler Measurements & Calculations TR max kurt: 256.3 cm/sec TR max P.3 mmHg ECHO/ONC Echo, Limited Study Interpretation Summary Normal LV size. Left ventricular systolic function is normal. The estimated ejection fraction is 60 %. Catheter noted in right atrium filamentous structure still attached The global longitudinal strain = -17.6 % (normal). The global longitudinal strain is normal. The global longitudinal strain = -17. 6 % (normal). Ordering Physician: Silvano Corona Performed By: Pineda Bustamante RCS
== END | disposition home or self-care (01) ==
PROVIDERS: PCP Internal Medicine; Visit Provider Internal Medicine Medical Oncology
DX: C54.1 Malignant neoplasm of endometrium (principal); C77.2 Secondary and unspecified malignant neoplasm of intra-abdominal lymph nodes; I10 Essential (primary) hypertension; Z51.81 Encounter for therapeutic drug level monitoring; Z79.899 Other long term (current) drug therapy
CPT/HCPCS: 93308; 93356

== ENCOUNTER → 2022-03-28 | Outpatient (CLI) | payer MEDICARE, SELFPAY ==
--- NOTE | 2022-03-28 07:03 | CT_ITS ---
STUDY: CT CHEST, ABDOMEN T PELVIS WITH CONTRAST REASON FOR EXAM: Female, 66 years old. Abdominal pain; assess response to treatment RADIATION DOSAGE (If Supplied By Facility): CTDIvol = ( 13.96 ) mGy, DLP = ( 1337.94 ) mGycm TECHNIQUE: Transaxial imaging was performed following intravenous administration of IV 100mL Isovue-370. Individualized dose optimization techniques were used for this CT. COMPARISON: October 24, 2021, January 24, 2022 PET/CT and CTA of the chest dated February 06, 2022 FINDINGS: CHEST There is no new focal consolidation. There is a stable tubular focus within the left upper lobe measuring up to 4.1 mm in diameter. Normal heart and pericardium. There are no coronary artery calcifications visualized. Normal mediastinum. There is a right-sided central venous catheter in place terminating within the region of the cavoatrial junction. Normal hilar regions. Normal unenhanced pulmonary arteries. Normal aorta arch and descending thoracic aorta. There are degenerative changes of the thoracic spine. Bony thorax is stable. ABDOMEN Normal liver. Normal gallbladder and extrahepatic biliary system. Normal spleen. Normal pancreas. Normal bilateral adrenal glands. There is a stable right renal cyst. Normal visualized stomach. Normal small intestine. There are diverticula arising from the colon. The appendix is visualized and appears normal. Normal abdominal aorta. Normal inferior vena cava. There are prominent and enlarged retroperitoneal lymph nodes that have increased in size. There is a 1.8 cm in short axis left para-aortic lymph node previously measuring 1.5 cm. PELVIS Normal urinary bladder. There is no pelvic fluid. There is a new enlarged right common iliac lymph node measuring up to 1.0 cm (image 65 series 3). There is interval enlargement of lymph nodes along the right pelvic sidewall and right external iliac region. Trim Stencil Maker lymph nodes include a 1.5 cm right obturator lymph node previously measuring 1.1 cm and a 1.5 cm external iliac node previously measuring 1.2 cm. There are enlarged right inguinal lymph nodes that have increased in size as well including a 2.1 cm in short axis node previously measuring 1.9 cm. Normal abdominal wall. There are degenerative changes of the lumbar spine. CT/CT Chest, Abd, Pel w/Contrast IMPRESSION: Interval enlargement of retroperitoneal and pelvic lymph nodes consistent with a neoplastic process. Electronically Signed: Aneta Fulton MD at 10:45 EST ,
[2022-03-28 07:30] LABS: CREATININE FINGERSTICK < 0.9 mg/dL (0.55-1.02); EGFR FINGERSTICK > 60.0000 mL/min (>60)
[2022-03-28] MEDS: 0.9 % NaCl (Sterile) Posiflush 10 mL IV (07:31)
== END | disposition home or self-care (01) ==
LOC: CT 07:02
PROVIDERS: PCP Internal Medicine; Visit Provider Nurse Practitioner Family
DX: C54.1 Malignant neoplasm of endometrium (principal)
CPT/HCPCS: 71260; 74177; Q9967; A4216

== ENCOUNTER → 2022-04-16 | Outpatient (CLI) | payer MEDICARE, SELFPAY ==
[2022-04-16] VITALS (9 sets, daily range): BP systolic 117–139; BP diastolic 66–72; PULSE 68–81; RESP 10–19; TEMP 36.7; O2SAT 96–99; BMI 29.2
[2022-04-16] MEDS: 0.9% Saline Lock 10 ML Syringe IV ×2 (08:07→10:35)
[2022-04-16] MEDS: 0.9 % NaCl (Sterile) Posiflush 10 mL IV (08:07)
--- NOTE | 2022-04-16 08:11 | CT_ITS ---
PROCEDURE: CT GUIDED biopsy of the right inguinal lymph node. DATE: 04/16/2022. INDICATION: Female, 66 years old. Enlarged right inguinal lymph node. PHYSICIAN: Milan Tello M.D. RADIATION DOSAGE (If Supplied By Facility): CTDIvol = ( 22 ) mGy, DLP = ( 369.8 ) mGycm. Individualized dose optimization techniques were utilized. PROCEDURE: The risks, benefits, and alternatives to the procedure were explained to the patient. The specific risk of hemorrhage requiring further treatment or intervention was detailed and accepted. Follow-up instructions were discussed with the patient as well. Written informed consent was obtained. The patient was brought into the CT suite and placed in the prone position. . An appropriate entry site was identified. The overlying skin was prepped and draped in the usual sterile fashion. 1% lidocaine was administered subcutaneously for local anesthesia. Conscious sedation was performed. The patient received 2 mg of VERSED and 50 mcg of FENTANYL intravenously. Conscious sedation was started at 9:13 AM and terminated at 9:33 AM. The patient was independently monitored by the department nurse. Under CT guidance, a total of 5 passes were performed utilizing a 18-gauge core biopsy needle. The specimens were then placed in the appropriate fluid and transported to the laboratory for analysis. Hemostasis was obtained. The patient tolerated the procedure well without immediate complications. CT/Biopsy/Inj or Needle Placement IMPRESSION: Successful CT guided core biopsy of the right inguinal lymph node, as described above. Conscious sedation protocol was followed. Electronically Signed: Milan Tello MD at 10:05 [facility] ,
[2022-04-16 08:19] LABS: Absolute Lymphocyte Count 1.17 X10^3/uL (0.83-4.51); Absolute Neutrophil Count 5.2 X10^3/uL (2.0-7.7); Basophil# 0.02 X10^3/uL; Basophil% 0.3 % (0-1); Eosinophil# 0.14 X10^3/uL; Eosinophils% 1.9 % (0-5); Hematocrit 40.4 % (37-47); Hemoglobin 12.9 g/dL (12.0-15.0); Lymphocyte # 1.17 X10^3/ul (0.83-4.51); Lymphocyte % 16.1 % (19-41); Mean Corp Hgb Conc 31.9 g/dL (32-36); Mean Corpuscular Hgb 29.6 pg (27.0-32.0); Mean Corpuscular Volume 92.7 fL (81-99); Monocyte# 0.78 X10^3/uL; Monocyte% 10.7 % (0-10); NRBC Flagged by Analyzer 0 % (0-5); Neutrophil # 5.16 X10^3/uL (2.7-7.7); Neutrophil % 70.9 % (47-70); Platelet Count 267 K/mm3 (150-450); RBC Distribution Width CV 13.5 % (11.6-14.6); RBC Distribution Width SD 46.4 fl (35.1-43.9); Red Blood Count 4.36 M/mm3 (4.2-5.4); White Blood Count 7.3 K/mm3 (4.4-11.0)
[2022-04-16 08:43] LABS: International Normalized Ratio 1.1; Prothrombin Time (Protime)PT. 13.5 SECONDS (11.7-14.9)
[2022-04-16 08:44] LABS: Partial Thromboplast Time 37.8 Seconds (24.1-36.2)
--- NOTE | 2022-04-16 09:00 | ASPIGT_PTH ---
PATIENT: ROHIT TEJADA LOC: CT U#:[id number] AGE/SX: 66/F ROOM: RE04/16/[address]: YASHIRA Amezcua : 1955 BED: DIS: 04/16/2022 SPEC #: [id number] RECD: 04/16/22 09:43 STATUS: VALARIE RESamantha #: [id number] ZOHRA: 04/16/22 09:[address]: Sylwia Quiroz NP DEPT: SURGICAL PATHOLOGY RECD BY: Nuria Lewis ENTERED: 04/16/22 09:43 SP TYPE: ASP RAD OTHR DR: Dr. Kwasi Reyes MD Tissues: Inguinal lymph node, NOS Procedures: FNA Specimen Adequacy Pap Stain (control) Special Stain Group II Surgery Specimen Level IV Imprint (control) HEADER OPERATION: Right groin biopsy PRE-OP DIAGNOSIS: Endometrial CA, enlarged lymph node TISSUE SUBMITTED: Right groin 18-gauge core x5 MICROSCOPIC DIAGNOSIS Right groin mass, CT-guided core biopsy: Atypical epithelial cells suspicious for non-small cell malignancy. See comment. AM:ashish 04/18/2022 COMMENT The specimen is evaluated at the time of biopsy by Dr. Nur. Immediate Evaluation = Atypical epithelial cells suspicious for malignancy. Rare, atypical epithelial cells suspicious for a metastatic non-small cell malignancy are identified only in the touch prep smears. The tissue submitted for permanent sections contain only polytypic (benign) lymphoid tissue and fibrovascular tissue. Malignant cells are not identified in this tissue. Clinical correlation is suggested. Case has been reviewed in consultation with Dr. Robbins who concurs with the above diagnosis. IDC:[id number] MICROSCOPIC DESCRIPTION Slides are reviewed. GROSS DESCRIPTION Received in fixative is one container labeled with the patient's name and designated right groin. The specimen consists of multiple irregular and elongated fragments of red-hameed soft tissue that in aggregate measure 1 x <0.1 x <0.1 cm. The specimen is totally submitted in one cassette. / AM:ashish 04/16/2022 TC:? CPT: 53155, 74432
[2022-04-16] MEDS: Midazolam 2 MG/2 ML Syringe IV ×2 (09:12→09:24)
[2022-04-16] MEDS: fentaNYL 100 MCG/2 ML Ampul IV ×2 (09:13→09:24)
[2022-04-16] MEDS: Lidocaine 2% (20 ml mdv) 20 ML Vial INFILT (09:23)
[2022-04-16 16:13] LABS: Xtra Tube EP Lab EXTRA TUBE
[2022-04-17 20:37] LABS: Cancer Antigen 125 56.9 U/mL (0.0-38.1)
== END | disposition home or self-care (01) ==
PROVIDERS: PCP Internal Medicine; Referring Provider Nurse Practitioner Family; Visit Provider Nurse Practitioner Family
DX: R59.0 Localized enlarged lymph nodes (principal); C77.2 Secondary and unspecified malignant neoplasm of intra-abdominal lymph nodes; C54.1 Malignant neoplasm of endometrium; R19.09 Other intra-abdominal and pelvic swelling, mass and lump; I82.890 Acute embolism and thrombosis of other specified veins
CPT/HCPCS: 38505; 36591; 77012; 85025; 85610; 85730; 86304; 88172; 88305; 88313; 99156; J7050; A4216

== ENCOUNTER → 2022-05-09 | Outpatient (CLI) | payer MEDICARE, SELFPAY ==
--- NOTE | 2022-05-09 07:54 | CT_ITS ---
STUDY: CT ABDOMEN AND PELVIS WITH CONTRAST REASON FOR EXAM: Female, 66 years old. ASSESS CANCER PAIN. Endometrial cancer with mets to lymph nodes, hysterectomy and chemo RADIATION DOSAGE (If Supplied By Facility): CTDIvol = ( 19.13 ) mGy, DLP = ( 1168.66 ) mGycm TECHNIQUE: Transaxial images were obtained from the dome of the diaphragm to the symphysis pubis with oral contrast. Oral and amp; IV Readi-CAT and amp; 100mL Isovue-370 was administered. Sagittal and coronal images were reconstructed. Individualized dose optimization techniques were used for this CT. COMPARISON: Comparison is made with prior study dated 03/28/2022. FINDINGS: A keena catheter seen within the superior vena cava. The visualized portions of the heart are within normal limits. Normal liver. Normal gallbladder and extrahepatic biliary system. Normal spleen. Normal pancreas. Normal bilateral adrenal glands. Normal right kidney. Normal left kidney. Normal visualized stomach. Normal small intestine. A moderate amount of fecal material is seen throughout the colon. Scattered sigmoid diverticula. The appendix is visualized and appears normal. Normal abdominal aorta. Normal inferior vena cava. Stable enlargement of the retroperitoneal lymph nodes. The largest cyst in the left para-aortic region measuring 1.8 cm. Persistent 3.3 cm x 2.4 cm rounded soft tissue density in the right groin. A similar appearing nodule is seen inferior and medial to this previously mentioned nodular density measures 2.2 cm x 1.8 cm. Small lymph nodes are also seen in the region of the left groin. Normal urinary bladder. There is absence of the uterus consistent with a prior hysterectomy. Stable small bilateral pelvic lymph nodes. Normal abdominal wall. Normal osseous structures. CT/Abdomen/Pelvis WITH Contrast IMPRESSION: Stable examination. Electronically Signed: Milan Tello MD at 9:31 EST ,
--- NOTE | 2022-05-09 07:54 | ECHODONC_ITS ---
Reason For Study: CA Procedure This was a 2D Doppler, Color Flow transthoracic echocardiogram. Myocardial strain analysis was performed in this exam to aid in the assessment of cardiac function. Exam performed in department. Left Ventricle Normal LV size. Mild concentric left ventricular hypertrophy. Left ventricular systolic function is normal. The estimated ejection fraction is 60 %. Stage 1 diastolic dysfunction. No regional wall motion abnormalities noted. Right Ventricle Normal RV size. Normal systolic function. Atria Normal left atrium. Normal right atrium. Catheter noted in right atrium. Tricuspid Valve Normal tricuspid valve. Mild tricuspid valve insufficiency. Pulmonary artery systolic pressure is 38 mmHg. Aortic Valve Normal aortic valve. Great Vessels Normal aortic root. The pulmonary artery is normal size. Normal inferior vena cava. Pericardium/Pleural No pericardial effusion. MMode/2D Measurements & Calculations LVIDd: 4.2 cm IVSd: 1.2 cm Ao root diam: 3.0 cm LVIDs: 3.3 cm LVPWd: 1.3 cm FS: 20.4 % LAV(MOD-sp4): 60.3 ml SV(MOD-sp4): 46.7 ml LVAd ap4: 29.4 cm2 LVLd ap4: 8.3 cm EDV(MOD-sp4): 85.9 ml EDV(sp4-el): 88.8 ml LVAs ap4: 17.7 cm2 LVLs ap4: 6.8 cm ESV(MOD-sp4): 39.2 ml ESV(sp4-el): 39.1 ml EF(MOD-sp4): 54.3 % EF(sp4-el): 56.0 % SV(sp4-el): 49.7 ml LA dimension(2D): 3.5 cm LA A4 area: 20.0 cm2 RA A4 area: 9.3 cm2 Time Measurements MV dec time: 0.17 sec Doppler Measurements & Calculations MV E max troy: 79.4 cm/sec Lat Peak E' Troy: 10.1 cm/sec Med Peak E' Troy: 8.2 cm/sec MV A max troy: 84.8 cm/sec E/E' lat: 7.9 E/E' med: 9.7 MV E/A: 0.94 MV V2 max: 114.7 cm/sec Ao V2 max: 151.2 cm/sec MV max P.3 mmHg MV dec slope: 454.7 cm/sec2 Ao max P.2 mmHg MV V2 mean: 82.5 cm/sec Ao V2 mean: 108.8 cm/sec MV mean P.9 mmHg Ao mean P.3 mmHg MV V2 VTI: 47.4 cm Ao V2 VTI: 40.8 cm AV (velocity ratio): 0.64 LV V1 max: 102.2 cm/sec MR max troy: 522.9 cm/sec PA V2 max: 80.0 cm/sec LV V1 max P.2 mmHg MR max P.4 mmHg PA V2 mean: 60.2 cm/sec LV V1 mean P.6 mmHg LV V1 mean: 76.1 cm/sec LV V1 VTI: 26.2 cm TR max troy: 288.8 cm/sec TR max P.4 mmHg ECHO/ONC Echo Complete Interpretation Summary Normal LV size. Left ventricular systolic function is normal. The estimated ejection fraction is 60 %. Mild concentric left ventricular hypertrophy. Stage 1 diastolic dysfunction. Catheter noted in right atrium. The global longitudinal strain is normal. The global longitudinal strain = -19. 7 % (normal). Ordering Physician: Silvano Corona Referring Physician: Silvano Corona Performed By: Ida Rosenthal RCS
[2022-05-09] MEDS: 0.9% Saline Lock 10 ML Syringe IV (08:15)
== END | disposition home or self-care (01) ==
PROVIDERS: PCP Internal Medicine; Referring Provider Internal Medicine Medical Oncology; Visit Provider Internal Medicine Medical Oncology
DX: C54.1 Malignant neoplasm of endometrium (principal); C77.2 Secondary and unspecified malignant neoplasm of intra-abdominal lymph nodes; T82.868A Thrombosis due to vascular prosthetic devices, implants and grafts, initial encounter; R07.89 Other chest pain; Z51.81 Encounter for therapeutic drug level monitoring; Z79.899 Other long term (current) drug therapy
CPT/HCPCS: 74177; 93306; 93356; Q9967

== ENCOUNTER → 2022-05-21 | Outpatient (CLI) | payer MEDICARE, SELFPAY ==
--- NOTE | 2022-05-21 07:49 | RAD_ITS ---
PROCEDURE: SMALL BOWEL SERIES DATE OF EXAMINATION: May 21, 2022. INDICATION: Female, 66 years old. Abdominal pain. History of endometrial carcinoma. PHYSICIAN: Milan Tello M.D. FLUOROSCOPY TIME (if supplied): (0:18) minutes/seconds. 12.93 mGy. 6 images were obtained. TECHNIQUE: Radiographic and fluoroscopic images were taken of the small intestine following the ingestion of barium. COMPARISON: None. FINDINGS: A preliminary supine KUB was obtained. There is an unremarkable bowel gas pattern. Fecal material is present throughout the colon. Phleboliths are present within the pelvis. The lung bases are unremarkable. Levoscoliosis. The patient orally ingested approximately 12 ounces of thin barium Normal visualized fundus, body, and antrum of the stomach. Normal duodenal bulb, C-loop, and proximal jejunum. Normal visualized mucosal folds of the jejunum and ileum. There are no demonstrated dilatations, strictures, or masses of the small intestine. There is no mass displacement of the loops of small intestine. There is a normal motor pattern with barium reaching the colon within approximately 60 minutes. Spot films under fluoroscopic observation demonstrated a normal terminal ileum and ileocecal valve. RAD/Small Bowel Series Only IMPRESSION: Normal small bowel series. Electronically Signed: Milan Tello MD at 12:54 [facility] ,
== END | disposition home or self-care (01) ==
PROVIDERS: PCP Internal Medicine; Visit Provider Internal Medicine Medical Oncology
DX: R10.9 Unspecified abdominal pain (principal)
CPT/HCPCS: 74250

== ENCOUNTER → 2022-07-13 | Outpatient (CLI) | payer MEDICARE, SELFPAY | END | disposition home or self-care (01) | LOC: LABSPEC 17:07 | PROVIDERS: PCP Internal Medicine; Visit Provider Obstetrics & Gynecology | DX: R53.83 Other fatigue (principal) | CPT/HCPCS: 87086; 87088 ==

== ENCOUNTER 2022-08-12 09:44 | Emergency (ER) | payer MEDICARE, SELFPAY ==
[2022-08-12 09:45] VITALS: BP 161/84; PULSE 86; RESP 16; TEMP 36.6; O2SAT 98; BMI 28.5
--- NOTE | 2022-08-12 10:20 | EDS_ITS ---
HPI History of Present Illness Chief Complaint: General Illness Detail of Chief Complaint: Sores in mouth and decreased p.o. intake Informant: patient and spouse/S.O. Narrative Narrative: Patient presents to the emergency department with complaints of decreased p.o. intake and sores in her mouth. She complains of burning to her hands. Patient tells me that she is currently receiving chemotherapy for history of endometrial cancer with metastasis to her lymph nodes. Her last chemo was approximately July 17 and she received Doxil. Patient states she is able to eat Jell-O and take in fluids and yogurt. Patient complains of blisters and lesions to the inside of her mouth. She has been using Magic mouthwash solution as well as distilled aloe vera. Patient not get much pain relief. She was advised by her oncology team to come to the ER for evaluation. Patient denies any fevers or recent illness otherwise. Patient denies vomiting or diarrhea. [facility] Medical History Arthralgia Cancer Cancer related pain CINV (chemotherapy-induced nausea and vomiting) Constipation COVID-19 Diarrhea due to drug Elevated BP without diagnosis of hypertension Encounter for chemotherapy management Encounter for education Encounter for immunotherapy Encounter for monitoring cardiotoxic drug therapy Fatigue Gastric reflux Hypertension Hypotension Increased appetite Left leg pain Left leg swelling Neuropathy due to chemotherapeutic drug Non-smoker Ovarian cancer Papillary serous adenocarcinoma of ovary Port-A-Cath in place Superficial vein thrombosis Thrombosis complicating venous access device Tightness in chest Upper abdominal pain Vaginal candidiasis Home Medications pantoprazole 20 mg tablet,delayed release (Protonix) 20 mg PO DAILY 01/14/18 [History Last Taken Unknown] lidocaine-prilocaine 2.5 %-2.5 % topical cream 1 applic topical ONCE PRN port access 30 days #30 grams 10/05/20 [Rx Last Taken Unknown] multivitamin 1 tab PO DAILY 10/05/20 [History Last Taken Unknown] ondansetron 8 mg disintegrating tablet 8 mg PO Q8H PRN nausea and vomiting #30 tabs 07/02/22 [Rx Last Taken Unknown] prochlorperazine maleate 10 mg tablet 10 mg PO Q6H PRN nausea and vomiting #30 tabs 07/02/22 [Rx Last Taken Unknown] arginine 7 gram-glutamine 7 gram-calcium HMB 1.5 gram oral powder pack (Rip) ea PO 07/23/22 [History Last Taken Unknown] dexamethasone 4 mg tablet 4 mg PO DAILY #14 tabs 07/23/22 [Rx Last Taken Unknown] megestrol 40 mg tablet 40 mg PO BID #60 tabs 07/23/22 [Rx Last Taken Unknown] valacyclovir 500 mg tablet 500 mg PO BID 07/23/22 [History Last Taken Unknown] lorazepam 1 mg tablet (Ativan) 1 mg PO DAILY PRN sedation #2 tabs 07/28/22 [Rx Last Taken Unknown] citalopram 20 mg tablet (Celexa) 20 mg PO DAILY #30 tabs 07/31/22 [Rx Last Taken Unknown] MAGIC MOUTH WASH (BMX) 180 mL suspension 5 ml buccal .COMPLEX #180 mL 08/06/22 [Rx Last Taken Unknown] hydrocodone-acetaminophen 5-325mg 5mg-325mg 1 tab PO Q4H PRN PRN Pain 3 days #15 TABLETS 08/12/22 [Rx Last Taken Unknown] Allergy/AdvReac Type Severity Reaction Status Date / Time Iodinated Contrast Media Allergy Severe Anaphylaxis Verified 08/06/22 09:16 Family History Mother Cancer Cervical cancer at 35 years and lung cancer later in life Father Cancer Sister Cancer Cervical cancer Brother Diabetes Surgical History H/O total hysterectomy History of delivery Hx of breast reduction, elective Social History Smoking Status: Never smoker alcohol intake: current details: social substance use type: does not use caffeine: No what type of physical activity do you participate in: walking frequency: 5-6 times per week seatbelt use: always do you feel safe at home: Yes 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 history: [employer]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 [employer] ROS ROS ED Review of Systems ROS Unobtainable: other Constitutional Constitutional ED: Reports lethargy; Denies chills, fever(s), sweats or weight loss Eyes Eyes: Denies blurry vision, change in vision or diplopia ENT ENT ED: Reports other Details: Lesions to mouth ; Denies rhinorrhea or sore throat Cardiovascular Cardiovascular: Denies chest pain, orthopnea or racing heartbeat Respiratory/Chest Respiratory/Chest: Denies cough, dyspnea, dyspnea on exertion, orthopnea or sputum Gastrointestinal Gastrointestinal: Denies abdominal pain, diarrhea, nausea or vomiting Genitourinary Genitourinary ED: Denies dysuria, hematuria or urinary frequency Musculoskeletal Musculoskeletal: Denies arthralgias, back pain, myalgias or neck pain Integumentary Denies abscess, Abrasions or rash Neurologic Neurologic: Reports paresthesias; Denies headache(s) or weakness Psychiatric Psychiatric: Denies anxiety, depression or suicidal thoughts Endocrine Endocrinology: Denies polydipsia, polyphagia or polyuria Hematologic/Lymphatic Hematologic/Lymphatic: Denies easy bleeding, easy bruising or lymphadenopathy Allergic/Immunologic Allergic/Immunologic ED: Denies mouth swelling, tongue swelling or urticaria EXAM Physical Exam Const Vital Signs: 08/12/22 09:45 08/12/22 11:04 Temperature 97.8 F Temperature Source Temporal Pulse Rate 86 Respiratory Rate 16 Respiratory Effort Normal Non-Labored Blood Pressure 161/84 H Blood Pressure Mean 109 Pulse Ox 98 Oxygen Delivery Method Room Air Positive well nourished and well developed General Appearance ED: well developed and NAD HEENT Reports TM's clear and moist mucous membranes HEENT Narrative: Patient with ulcerations to the oral mucosa throughout. No facial erythema or cellulitis. normocephalic and atraumatic; Negative for trauma or tenderness Tympanic Membrane ED: Yes TM's clear Eyes PERRL and EOMs intact bilaterally General Eye ED: Negative for pale conjunctiva or scleral icterus Neck no lymphadenopathy, supple and no JVD General: Negative for tenderness Chest Wall inspection of chest normal and palpation of chest normal Chest: Negative for tenderness Resp normal respiratory effort and clear to auscultation bilaterally Effort and Inspection: Negative for respiratory distress or pain with movement Auscultation: Negative for rhonchi, wheezes or diminished lung sounds Cardio regular rate, regular rhythm, S1 normal heart sound, S2 normal heart sound and no murmurs Peripheral Pulses: pulses 2+ throughout GI normal to inspection, nondistended, normoactive bowel sounds, soft to palpation, non-tender, non-distended and no masses Back/Spine no CVA tenderness and no thoracic nor lumbar tenderness Extremity Extremity Narrative: Patient has some faint areas of erythema to both palms. No blisters or open areas noted. She is neurovascular intact. General Extremety ED: Negative for edema General Extremity: Negative for edema Neuro oriented x3, CN's II-XII intact bilaterally, no sensory deficits noted and gait normal Sensorium / Orientation: awake, alert, oriented to person, oriented to place and oriented to time Motor Exam: strength 5/5 throughout and strength abnormal Psych mental status grossly normal Skin no rashes or lesions noted and no wounds MDM MDM MDM Narrative Medical decision making narrative: Patient had an IV line established on arrival. Patient was medicated with Dilaudid and Zofran and she had good pain relief with that. Patient was given a liter of the same fluid bolus. Basic lab work-up was undertaken and showed a white count of 4.3 with a hemoglobin of 12 platelet count of 248. Absolute neutrophil count was 2.8. Chemistries unremarkable. At this point I suspect her symptoms are related to recent chemo side effects. We will contact patient's oncology team to discuss further. Plan will be to give patient prescription for Diana for pain and she is to continue with other comfort measures such as the Magic mouthwash. Lab Data Labs: Laboratory Results - last 24 hr 08/12/22 08/12/22 11:10 11:10 WBC 4.3 L RBC 3.88 L Hgb 12.2 Hct 35.9 L MCV 92.5 MCH 31.4 MCHC 34.0 RDW Std Deviation 50.9 H RDW Coeff of José Antonio 15.9 H Plt Count 248 MPV 8.7 Immature Gran % (Auto) 0.500 Neut % (Auto) 64.9 Lymph % (Auto) 27.2 [place] % (Auto) 6.0 Eos % (Auto) 0.9 Baso % (Auto) 0.5 Absolute Neuts (auto) 2.8 Absolute Lymphs (auto) 1.17 Nucleated RBC % 0 Sodium 138 Potassium 3.9 Chloride 110 H Carbon Dioxide 22.0 Anion Gap 6 BUN 21 H Creatinine 0.62 Estim Creat Clear Calc 46.50 Est GFR (MDRD) Af Amer 123 Est GFR (MDRD) Non-Af 102 BUN/Creatinine Ratio 33.9 H Glucose 100 Calcium 9.0 Total Bilirubin 0.30 AST 10 L ALT 12 L Alkaline Phosphatase 51 Total Protein 6.5 Albumin 3.0 L Globulin 3.5 Albumin/Globulin Ratio 0.9 Discharge Plan Triage Chief Complaint: General Illness ED Provider: Ahsan Lemons Dx/Rx/DC Orders Clinical Impression: Drug side effects, Mouth pain Instructions: What Are Oral Lesions ..., ED ADVERSE DRUG REACTION Allergic Prescriptions: New hydrocodone-acetaminophen [hydrocodone-acetaminophen] 5-325 mg tablet 1 tab PO Q4H PRN PRN (Reason: Pain) 3 Days Qty: 15 0RF No Action pantoprazole [Protonix] 20 mg tablet,delayed release (DR/EC) 20 mg PO DAILY multivitamin Tablet 1 tab PO DAILY lidocaine-prilocaine 2.5-2.5 % cream 1 applic topical ONCE PRN (Reason: port access) 30 Days Qty: 30 2RF valacyclovir 500 mg Tablet 500 mg PO BID Rip 7-7-1.5 gram Powder In Packet PO megestrol 40 mg tablet 40 mg PO BID Qty: 60 1RF dexamethasone 4 mg tablet 4 mg PO DAILY Qty: 14 0RF MAGIC MOUTH WASH (BMX) 180 mL suspension 5 ml buccal .COMPLEX Qty: 180 0RF Rx Instructions: 5 mL buccally qid; diphenhydramine 12.5 mg/5 mL oral liquid 60 mL; aluminum- mag hydroxide-simethicone 400 mg-400 mg-40 mg/5 mL oral susp 60 mL; Lidocaine Viscous 2 % mucosal solution 60 mL; Per 180 mL ondansetron 8 mg tablet,disintegrating 8 mg PO Q8H PRN (Reason: nausea and vomiting) Qty: 30 2RF prochlorperazine maleate 10 mg tablet 10 mg PO Q6H PRN (Reason: nausea and vomiting) Qty: 30 2RF lorazepam [Ativan] 1 mg tablet 1 mg PO DAILY PRN (Reason: sedation) Qty: 2 0RF Rx Instructions: take 1 hour prior to procedure, repeat 30 minutes prior if needed citalopram [Celexa] 20 mg tablet 20 mg PO DAILY Qty: 30 12RF Primary Care Provider: Kwasi Reyes Referrals: Silvano Corona MD [Med Staff - Active Staff] - 3-5 Days Kwasi Reyes MD [Primary Care Provider] - Disposition Disposition: Home, Self Care
[2022-08-12] MEDS: HYDROmorphone 1 MG/ML Syringe IV (10:56)
[2022-08-12] MEDS: 0.9% Normal Saline 1,000 ML 1000 ML IV (10:56)
[2022-08-12] MEDS: Ondansetron 4 MG/2 ML Vial IV (10:56)
[2022-08-12 11:22] LABS: Absolute Lymphocyte Count 1.17 X10^3/uL (0.83-4.51); Absolute Neutrophil Count 2.8 X10^3/uL (2.0-7.7); Basophil# 0.02 X10^3/uL; Basophil% 0.5 % (0-1); Eosinophil# 0.04 X10^3/uL; Eosinophils% 0.9 % (0-5); Hematocrit 35.9 % (37-47); Hemoglobin 12.2 g/dL (12.0-15.0); Lymphocyte # 1.17 X10^3/ul (0.83-4.51); Lymphocyte % 27.2 % (19-41); Mean Corpuscular Hgb 31.4 pg (27.0-32.0); Mean Corpuscular Volume 92.5 fL (81-99); Mean Platelet Vol. 8.7 fl (6.2-12.0); Monocyte# 0.26 X10^3/uL; NRBC Flagged by Analyzer 0 % (0-5); Neutrophil # 2.79 X10^3/uL (2.7-7.7); Neutrophil % 64.9 % (47-70); Platelet Count 248 K/mm3 (150-450); RBC Distribution Width CV 15.9 % (11.6-14.6); RBC Distribution Width SD 50.9 fl (35.1-43.9); Red Blood Count 3.88 M/mm3 (4.2-5.4); White Blood Count 4.3 K/mm3 (4.4-11.0)
[2022-08-12 11:34] LABS: ALB/GLOB Ratio 0.9 RATIO (0.9-2.4); AST(SGOT) 10 U/L (15-37); Alanine Aminotransfer ALT/SGPT 12 U/L (13-56); Alkaline Phosphatase 51 U/L (45-117); BUN 21 mg/dL (7-18); BUN/Creat Ratio 33.9 RATIO (10-20); Chloride 110 mmol/L (98-107); Creatinine, Serum 0.62 mg/dL (0.55-1.02); EST Glomerular Filtration Rate 102 mL/min (>60); Est Glom Filt Rate - Afr Amer 123 mL/min (>60); Globulin 3.5 g/dL (2.2-4.2); Glucose 100 mg/dL (74-106); Potassium 3.9 mmol/L (3.5-5.1); Protein, Total 6.5 g/dL (6.4-8.2); Sodium Level 138 mmol/L (136-145)
[2022-08-12 11:35] LABS: Anion Gap 6 (5-15)
[2022-08-12 12:01] VITALS: RESP 16
== END 2022-08-12 13:06 | disposition home or self-care (01) ==
PROVIDERS: Emergency Provider Emergency Medicine; PCP Internal Medicine; Visit Provider Emergency Medicine
DX: K13.79 Other lesions of oral mucosa (principal); I10 Essential (primary) hypertension; T45.1X5A Adverse effect of antineoplastic and immunosuppressive drugs, initial encounter; Z85.89 Personal history of malignant neoplasm of other organs and systems; K21.9 Gastro-esophageal reflux disease without esophagitis; Z79.899 Other long term (current) drug therapy; Z90.710 Acquired absence of both cervix and uterus
CPT/HCPCS: 80053; 85025; 99285; J7030; A4216; J2405

== ENCOUNTER 2022-11-12 18:26 | Emergency (ER) | payer MEDICARE, SELFPAY ==
[2022-11-12 18:28] VITALS: BP 157/92; PULSE 98; RESP 18; TEMP 36.7; O2SAT 98; BMI 28.5
--- NOTE | 2022-11-12 19:40 | ED.VIS.GI ---
HPI HPI - GI History of Present Illness Chief Complaint: Abd Pain Informant: patient Narrative Narrative: Patient presents with abdominal pain. This patient has been overall relatively healthy other than endometrial cancer. She had complete hysterectomy in September 2020. She did have some positive nodes. She has been getting chemotherapy since. She has never had radiation. No other abdominal surgery. She states that about 10 or 12 days ago she started to get constipated not move her bowels. She would just move small M&Ms. She is on a chronic bowel regimen. She tried some MiraLAX last week. She tried some again today but it does not really help. She has had intermittent mild nausea but is never vomited. Never had fevers. She gets kind of a diffuse abdominal cramping that waxes and wanes. PFSH PFS Medical History Arthralgia Cancer Cancer related pain CINV (chemotherapy-induced nausea and vomiting) Constipation COVID-19 Dehydration Diarrhea due to drug Elevated BP without diagnosis of hypertension Encounter for chemotherapy management Encounter for education Encounter for immunotherapy Encounter for monitoring cardiotoxic drug therapy Fatigue Gastric reflux Hypertension Hypokalemia Hypotension Increased appetite Left leg pain Left leg swelling Neuropathy due to chemotherapeutic drug Night sweats Non-smoker Ovarian cancer Papillary serous adenocarcinoma of ovary Port-A-Cath in place Superficial vein thrombosis Thrombosis complicating venous access device Tightness in chest Upper abdominal pain Vaginal candidiasis Vulvar lesion Home Medications pantoprazole 20 mg tablet,delayed release (Protonix) 20 mg PO DAILY 01/14/18 [History Last Taken Unknown] lidocaine-prilocaine 2.5 %-2.5 % topical cream 1 applic topical ONCE PRN port access 30 days #30 grams 10/05/20 [Rx Last Taken Unknown] multivitamin 1 tab PO DAILY 10/05/20 [History Last Taken Unknown] ondansetron 8 mg disintegrating tablet 8 mg PO Q8H PRN nausea and vomiting #30 tabs 07/02/22 [Rx Last Taken Unknown] prochlorperazine maleate 10 mg tablet 10 mg PO Q6H PRN nausea and vomiting #30 tabs 07/02/22 [Rx Last Taken Unknown] arginine 7 gram-glutamine 7 gram-calcium HMB 1.5 gram oral powder pack (Rip) 1 ea PO DAILY 07/23/22 [History Last Taken Unknown] valacyclovir 500 mg tablet 500 mg PO BID 07/23/22 [History Last Taken Unknown] lorazepam 1 mg tablet (Ativan) 1 mg PO DAILY PRN sedation #2 tabs 07/28/22 [Rx Last Taken Unknown] MAGIC MOUTH WASH (BMX) 180 mL suspension 5 ml buccal .COMPLEX #180 mL 08/06/22 [Rx Last Taken Unknown] hydrocodone-acetaminophen 5-325mg 5mg-325mg 1 tab PO Q4H PRN PRN Pain 3 days #15 TABLETS 08/12/22 [Rx Last Taken Unknown] citalopram 20 mg tablet See Rx Instructions .Route .COMPLEX #30 tabs 08/23/22 [Rx Last Taken Unknown] bisacodyl 5 mg tablet,delayed release (Dulcolax (bisacodyl)) 5 mg PO DAILY PRN 09/17/22 [History Last Taken Unknown] polyethylene glycol 3350 17 gram oral powder packet (Miralax) 17 g PO DAILY 09/17/22 [History Last Taken Unknown] dexamethasone 4 mg tablet 4 mg PO DAILY #14 tabs 10/01/22 [Rx Last Taken Unknown] megestrol 40 mg tablet 40 mg PO BID #60 tabs 11/07/22 [Rx Last Taken Unknown] Allergy/AdvReac Type Severity Reaction Status Date / Time Iodinated Contrast Media Allergy Severe Anaphylaxis Verified 11/12/22 18:28 Family History Mother Cancer Cervical cancer at 35 years and lung cancer later in life Father Cancer Sister Cancer Cervical cancer Brother Diabetes Surgical History H/O total hysterectomy History of delivery Hx of breast reduction, elective Social History Smoking Status: Never smoker alcohol intake: current details: social substance use type: does not use caffeine: No what type of physical activity do you participate in: walking frequency: 5-6 times per week seatbelt use: always do you feel safe at home: Yes 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 Some specific details below. Constitutional: No recent fevers or chills. No malaise. EYE: No visual complaints or pain. No eye color change ENT: No difficulty swallowing. No swelling. No pain. CV: No chest pain or palpitations. Respiratory: No dyspnea. No hemoptysis. No difficulty taking breaths. GI: Please see history of present illness. : No frequency dysuria or hematuria. No trouble starting or stopping stream. Musculoskeletal: No recent trauma. No pains. Skin: No rash. Nondiaphoretic. Neuro: No weakness or numbness. Endocrine: No polyuria or polydipsia. EXAM Physical Exam Narrative Exam Narrative: CONSTITUTIONAL: Patient is nontoxic in appearance. The patient looks comfortable. HEENT: No notable trauma. Mucous membranes minimally dry. No sinus tenderness. No indication of pain with swallowing. EYES: No conjunctival injection. No proptosis. CARDIOVASCULAR: Regular rate. Regular rhythm. No notable murmur. No JVD. RESPIRATORY: No respiratory distress. Breathing is unlabored. No wheezes. No rhonchi. No rales. No pain with a deep breath. GASTROINTESTINAL: Patient's abdomen has slight rash on the abdomen from a heating pad. But no abebe. There may be some very mild distention. She is diffusely sore but no areas of notable tenderness. Certainly no rebound or guarding. I hear no bruit. GENITOURINARY: No tenderness over the bladder. No CVA tenderness. MUSCULOSKELETAL: Atraumatic. No peripheral edema. No cord. No tenderness along the deep venous system. No asymmetry. NEUROLOGICAL: Patient is alert and appropriate. No focal deficit noted. SKIN: No noted rashes. No diaphoresis. PSYCHIATRIC: Patient is calm. Mood is appropriate. Const Vital Signs: 11/12/22 18:28 11/12/22 21:00 Temperature 98.1 F Temperature Source Temporal Pulse Rate 98 Respiratory Rate 18 16 Blood Pressure 157/92 H Blood Pressure Mean 113 Pulse Ox 98 Oxygen Delivery Method Room Air MDM MDM MDM Narrative Medical decision making narrative: Patient CBC shows normal white count hemoglobin and platelets. Patient's electrolytes show no marked abnormalities. Minimal elevation in BUN to creatinine ratio and chloride which I do not think are significant contributors to her problem. Patient's liver function test are normal. Patient's lipase is normal. Patient is urine does look to be a little cloudy. There are increased white cells at 25-50. But rare bacteria. Negative nitrites but positive leukocyte Estrace. My independent interpretation the patient's CT of the abdomen shows no sign of obstruction. There is mild left hydro-. But no for left flank pain on by history. Final reading is similar but they do show lymphadenopathy that is similar to her prior films. No acute indication of the pathology or source of pain. Patient is not having any symptoms at all of UTI and her pain is not isolated to the bladder or flank. We will send off culture. But we use shared decision making and chose not to initiate antibiotics pending culture or further symptoms. We will initiate meds for constipation. Patient has had symptoms approaching 2 weeks now yet her work-up shows negative for any marked acute pathology. But she has not moved her bowels much in a couple weeks. Although no significant distention, there is some stool throughout the colon. We will initiate therapy. I will try to get see if we can send her home with GoLytely. If not we will try magnesium citrate and reserve GoLytely as a backup plan by prescription. If she develops worsening pain, fevers, vomiting or other symptoms she may need to return. But at this point I do not think she needs admission. Lab Data Attestation: I reviewed the patient's lab results. Labs: Laboratory Results - last 24 hr 11/12/22 11/12/22 19:45 19:56 WBC 7.0 RBC 3.76 L Hgb 12.2 Hct 37.5 MCV 99.7 H MCH 32.4 H MCHC 32.5 RDW Std Deviation 54.1 H RDW Coeff of José Antonio 14.7 H Plt Count 319 MPV 8.7 Immature Gran % (Auto) 0.600 Neut % (Auto) 56.0 Lymph % (Auto) 25.3 [place] % (Auto) 16.1 H Eos % (Auto) 1.1 Baso % (Auto) 0.9 Absolute Neuts (auto) 3.9 Absolute Lymphs (auto) 1.77 Nucleated RBC % 0 Sodium 138 Potassium 3.5 Chloride 108 H Carbon Dioxide 21.0 Anion Gap 9 BUN 17 Creatinine 0.76 Estim Creat Clear Calc 46.50 Est GFR (MDRD) Af Amer 97 Est GFR (MDRD) Non-Af 80 BUN/Creatinine Ratio 22.3 H Glucose 85 Calcium 8.8 Total Bilirubin 0.40 AST 17 ALT 12 L Alkaline Phosphatase 68 Total Protein 6.9 Albumin 3.5 Globulin 3.4 Albumin/Globulin Ratio 1.0 Lipase 22 Urine Color Yellow Urine Clarity Sl. Cloudy Urine pH 6.0 Ur Specific [place] 1.015 Urine Protein 15 H Urine Glucose (UA) Normal Urine Ketones 15 H Urine Occult Blood 25 H Urine Nitrite Negative Urine Bilirubin Negative Urine Urobilinogen Normal Ur Leukocyte Esterase 500 H Urine RBC 0-5 SEEN Urine WBC 25-50 SEEN Ur Squamous Epith Cells 0-5 SEEN Amorphous Sediment 1+ URATE Urine Bacteria RARE Urine Mucus 0 SEEN Radiography Diagnostic Testing: Clinical Impression(s) from Imaging Studies Abdomen/Pelvis CT 11/12/22 20:08 IMPRESSION: 1. Stable adenopathy in the left retroperitoneum as well as in the right iliac region. A previously seen soft tissue mass in the right inguinal region has been removed since the reference CT scan. 2. Mild left-sided hydronephrosis but no obstructing stone is identified. This may be due to either radiolucent stone or edema from a recently passed stone. Electronically Signed: Melquiades Bryant MD at 20:40 EDT , Discharge Plan Triage Chief Complaint: Abd Pain ED Provider: Oliver Price Dx/Rx/DC Orders Clinical Impression: History of cancer of uterus, Abdominal pain, Constipation Instructions: ED Abdominal Pain Unkn Cause Fem, ED Constipation (Adult) Prescriptions: No Action pantoprazole [Protonix] 20 mg tablet,delayed release (DR/EC) 20 mg PO DAILY multivitamin Tablet 1 tab PO DAILY lidocaine-prilocaine 2.5-2.5 % cream 1 applic topical ONCE PRN (Reason: port access) 30 Days Qty: 30 2RF valacyclovir 500 mg Tablet 500 mg PO BID Rip 7-7-1.5 gram Powder In Packet 1 ea PO DAILY MAGIC MOUTH WASH (BMX) 180 mL suspension 5 ml buccal .COMPLEX Qty: 180 0RF Rx Instructions: 5 mL buccally qid; diphenhydramine 12.5 mg/5 mL oral liquid 60 mL; aluminum-mag hydroxide-simethicone 400 mg-400 mg-40 mg/5 mL oral susp 60 mL; Lidocaine Viscous 2 % mucosal solution 60 mL; Per 180 mL dexamethasone 4 mg tablet 4 mg PO DAILY Qty: 14 0RF polyethylene glycol 3350 [Miralax] 17 gram powder in packet 17 g PO DAILY bisacodyl [Dulcolax (bisacodyl)] 5 mg tablet,delayed release (DR/EC) 5 mg PO DAILY PRN hydrocodone-acetaminophen [hydrocodone-acetaminophen] 5-325 mg tablet 1 tab PO Q4H PRN PRN (Reason: Pain) 3 Days Qty: 15 0RF ondansetron 8 mg tablet,disintegrating 8 mg PO Q8H PRN (Reason: nausea and vomiting) Qty: 30 2RF prochlorperazine maleate 10 mg tablet 10 mg PO Q6H PRN (Reason: nausea and vomiting) Qty: 30 2RF lorazepam [Ativan] 1 mg tablet 1 mg PO DAILY PRN (Reason: sedation) Qty: 2 0RF Rx Instructions: take 1 hour prior to procedure, repeat 30 minutes prior if needed citalopram 20 mg tablet See Rx Instructions .ROUTE .COMPLEX Qty: 30 12RF Dose Instruction: TAKE 1 TABLET BY MOUTH EVERY DAY Rx Instructions: TAKE 1 TABLET BY MOUTH EVERY DAY megestrol 40 mg tablet 40 mg PO BID Qty: 60 1RF Primary Care Provider: Kwasi Reyes Referrals: Kwasi Reyes MD [Primary Care Provider] - 1-2 Days if not improving Disposition Disposition: Home, Self Care
[2022-11-12 19:50] LABS: Mucous, Urine 0 SEEN /hpf (<or=2+)
[2022-11-12 19:54] LABS: Color, Urine Yellow (Yellow); Glucose, Dipstick Normal (Normal); Ketone-Dipstick 15 mg/dl (Negative); Leukocyte Esterase-Dipstick 500 /ul (Negative); Nitrite-Dipstick Negative (Negative); Occult Blood-Urine 25 /ul (Negative); Protein-Dipstick 15 mg/dl (Negative); Specific Gravity, Urine 1.015 (1.002-1.030); Urine Bilirubin Dipstick Negative (Negative); Urine Clarity Sl. Cloudy (Clear); Urine Urobilinogen Normal (Normal)
[2022-11-12] MEDS: 0.9% Normal Saline 1,000 ML 1000 ML IV (20:01)
[2022-11-12 20:05] LABS: Absolute Lymphocyte Count 1.77 X10^3/uL (0.83-4.51); Absolute Neutrophil Count 3.9 X10^3/uL (2.0-7.7); Basophil# 0.06 X10^3/uL; Basophil% 0.9 % (0-1); Eosinophil# 0.08 X10^3/uL; Eosinophils% 1.1 % (0-5); Hematocrit 37.5 % (37-47); Hemoglobin 12.2 g/dL (12.0-15.0); Lymphocyte # 1.77 X10^3/ul (0.83-4.51); Lymphocyte % 25.3 % (19-41); Mean Corp Hgb Conc 32.5 g/dL (32-36); Mean Corpuscular Hgb 32.4 pg (27.0-32.0); Mean Corpuscular Volume 99.7 fL (81-99); Mean Platelet Vol. 8.7 fl (6.2-12.0); Monocyte# 1.13 X10^3/uL; Monocyte% 16.1 % (0-10); NRBC Flagged by Analyzer 0 % (0-5); Neutrophil # 3.92 X10^3/uL (2.7-7.7); Platelet Count 319 K/mm3 (150-450); RBC Distribution Width CV 14.7 % (11.6-14.6); RBC Distribution Width SD 54.1 fl (35.1-43.9); Red Blood Count 3.76 M/mm3 (4.2-5.4)
[2022-11-12 20:08] LABS: Bacteria RARE /hpf (None Seen); Red Blood Cells-Urine 0-5 SEEN /hpf (0-5); Squamous Epithelial Cells - UA 0-5 SEEN /hpf (5-10); White Blood Cells 25-50 SEEN /hpf (0-5)
--- NOTE | 2022-11-12 20:08 | CT_ITS ---
EXAM: CT ABDOMEN AND PELVIS WITHOUT INTRAVENOUS CONTRAST CLINICAL INDICATION: pain TECHNIQUE: Helically acquired images were obtained of the abdomen and pelvis without intravenous contrast. This CT exam was performed using one or more of the following dose reduction techniques: automated exposure control, adjustment of the mA and/or kV according to patient size, and/or use of iterative reconstruction technique. COMPARISON: 05/09/2022 FINDINGS: LOWER THORAX: Unremarkable. Lung bases are clear. No cardiomegaly. No significant pericardial effusion. ABDOMEN: LIVER: Unremarkable. Homogeneous. GALLBLADDER AND BILE DUCTS: Unremarkable. No calcified gallstones. No gallbladder distention or wall edema. No intra- or extrahepatic biliary ductal dilation. PANCREAS: Unremarkable. No focal cystic mass. SPLEEN: Unremarkable. Normal size without focal cystic or solid mass. ADRENALS: Unremarkable. No nodules. KIDNEYS AND URETERS: There is mild left-sided hydronephrosis and hydroureter. There is no obstructing stone identified. Normal renal size and position. STOMACH AND BOWEL: Unremarkable. No stomach or bowel distention. No focal inflammatory change. PELVIS: APPENDIX: No evidence of acute appendicitis. BLADDER: Unremarkable. REPRODUCTIVE: Patient status post hysterectomy. ABDOMEN and PELVIS: INTRAPERITONEAL SPACE: Unremarkable. No ascites or other fluid collection. No free air. BONES/JOINTS: Unremarkable. No suspicious lytic or blastic abnormality. SOFT TISSUES: There are surgical clips in the right inguinal region. No discrete abdominal or pelvic wall hernia. VASCULATURE: Unremarkable. Abdominal aorta is non-dilated. LYMPH NODES: Soft tissues again seen abutting the left aspect of the aorta may represent adenopathy and measures 2.3 x 2.0 x 4.6 cm compatible with adenopathy. This is unchanged from the reference exam. This was shown to be metabolically active on a previous PET CT scan dated 08/14/2022. There is also soft tissue abutting the right common iliac artery which may represent adenopathy and is stable from the reference exam. Right iliac adenopathy is also present and unchanged. CT/Abdomen/Pelvis without Cont IMPRESSION: 1. Stable adenopathy in the left retroperitoneum as well as in the right iliac region. A previously seen soft tissue mass in the right inguinal region has been removed since the reference CT scan. 2. Mild left-sided hydronephrosis but no obstructing stone is identified. This may be due to either radiolucent stone or edema from a recently passed stone. Electronically Signed: Melquiades Bryant MD at 20:40 EDT ,
[2022-11-12 20:09] LABS: Amorphous Sediment 1+ URATE
[2022-11-12 20:37] LABS: AST(SGOT) 17 U/L (15-37); Alanine Aminotransfer ALT/SGPT 12 U/L (13-56); Albumin, Serum 3.5 g/dL (3.2-5.0); Alkaline Phosphatase 68 U/L (45-117); Anion Gap 9 (5-15); BUN 17 mg/dL (7-18); BUN/Creat Ratio 22.3 RATIO (10-20); Calcium,Total 8.8 mg/dL (8.5-10.1); Chloride 108 mmol/L (98-107); Creatinine, Serum 0.76 mg/dL (0.55-1.02); EST Glomerular Filtration Rate 80 mL/min (>60); Est Glom Filt Rate - Afr Amer 97 mL/min (>60); Globulin 3.4 g/dL (2.2-4.2); Glucose 85 mg/dL (74-106); Lipase 22 U/L (13-75); Potassium 3.5 mmol/L (3.5-5.1); Protein, Total 6.9 g/dL (6.4-8.2); Sodium Level 138 mmol/L (136-145)
[2022-11-12 21:00] VITALS: RESP 16
[2022-11-12] MEDS: Ondansetron 4 MG/2 ML Vial IV (22:07)
[2022-11-12] MEDS: Acetaminophen 500 MG Tablet 1000 MG PO (22:07)
[2022-11-12] MEDS: Electrolyte Solution/Peg's 4000 ML PO (23:15)
== END 2022-11-12 23:17 | disposition home or self-care (01) ==
PROVIDERS: Emergency Provider Emergency Medicine; PCP Internal Medicine; Visit Provider Emergency Medicine
DX: R10.9 Unspecified abdominal pain (principal); Z85.42 Personal history of malignant neoplasm of other parts of uterus; I10 Essential (primary) hypertension; Z90.710 Acquired absence of both cervix and uterus; K21.9 Gastro-esophageal reflux disease without esophagitis; K59.00 Constipation, unspecified
CPT/HCPCS: 36591; 74176; 80053; 81001; 83690; 85025; 96361; 96374; 99283; J7030; A4216; J2405

== ENCOUNTER → 2022-12-10 | Outpatient (CLI) | payer MEDICARE, SELFPAY ==
--- NOTE | 2022-12-10 10:17 | MRI_ITS ---
STUDY: MR PELVIS WITH T WITHOUT CONTRAST REASON FOR EXAM: Female, 67 years old. vaginal metastasis, eval extent of pelvic disease -- please compare to prior TECHNIQUE: Standardized fat and water weighted pulse sequences were obtained in all 3 orthogonal planes, pre-and post contrast administration. 15ML IV CLARISCAN was administered for the contrast portion of the examination. COMPARISON: Prior study dated: MRI from 04/26/2020. CT performed 11/12/2022. PET/CT 08/14/2022. FINDINGS: UTERUS: Hysterectomy. VAGINA: At the region of the vaginal cuff there is a 1.5 x 1.1 x 1.5 cm filling defect which is increased in signal on T2-weighted imaging. This is somewhat isointense on T1-weighted imaging and does not enhance more than the surrounding tissue. It is difficult to determine if this extends external to the vagina or the vaginal wall expands along with the structure. There is no invasion of adjacent structures. This is 0.2 cm from the anterior margin of the rectum. RIGHT OVARY: Not visualized. LEFT OVARY: Not visualized. BLADDER: The urinary bladder is normal. BOWEL: No gross abnormality. PELVIC FREE FLUID: No free fluid in the pelvis. LYMPH NODES: Enlarged right pelvic sidewall lymph nodes are again noted. Noted on series 5 image 4 measures 1.8 cm in short axis. This is likely similar to the prior CT. ABDOMINAL WALL: No abdominal wall hernia. OSSEOUS STRUCTURES: No acute or suspicious osseous abnormality. MRI/Pelvis W/WO Contrast IMPRESSION: Similar appearance of right pelvic sidewall lymphadenopathy. Filling defect in the vagina near the vaginal cuff. This could be metastatic disease. This bows posteriorly. Cannot determine if this causes bowing of the vaginal wall or this extends beyond the wall. This does not invade into the adjacent rectum, though does come in somewhat close proximity. Electronically Signed: Chris Amos MD at 5:21 EDT ,
[2022-12-10] MEDS: 0.9 % NaCl (Sterile) Posiflush 10 mL IV (11:10)
[2022-12-10] MEDS: 0.9% Saline Lock 10 ML Syringe IV (11:15)
== END | disposition home or self-care (01) ==
LOC: MRI 10:10
PROVIDERS: PCP Internal Medicine; Referring Provider Student in an Organized Health Care Education/Training Program; Visit Provider Student in an Organized Health Care Education/Training Program
DX: C54.1 Malignant neoplasm of endometrium (principal)
CPT/HCPCS: 72197; A9575; A4216

== ENCOUNTER → 2022-12-20 | Outpatient (CLI) | payer MEDICARE, SELFPAY ==
--- NOTE | 2022-12-20 11:46 | VDLE_ITS ---
Reason For Study: Left leg swelling RIGHT LEFT CFV is compressible, spontaneous, phasic, CFV is compressible, spontaneous, phasic, competent and demonstrates normal competent, and demonstrates normal augmentation. augmentation. Procedure FV is compressible, spontaneous, phasic, This is a venous duplex using B-mode, color competent and demonstrates normal flow and spectral Doppler. augmentation. Exam performed in department. POP V is compressible, spontaneous, phasic, A preliminary report was called and/or faxed competent and demonstrates normal to Megan DOZIER. augmentation. T/P Trunk is compressible. PTV is compressible. LT PerV is compressible. Superficial vein thrombosis is noted in the left GSV from mid-distal calf. Thrombus filled varicose veins noted in the left proximal calf. VL/Venous Duplex US, Unilateral Interpretation Summary There is no evidence of left lower extremity deep vein thrombosis. Superficial thrombophlebitis left great saphenous vein from the mid to distal calf and within varicosities left p roximal calf Normal flow patterns right common femoral vein Ordering Physician: Dylan Collier Referring Physician: Kwasi Reyes M.D. Performed By: Jayla Ivey RVT
== END | disposition home or self-care (01) ==
LOC: CVS 11:32
PROVIDERS: PCP Internal Medicine; Referring Provider Student in an Organized Health Care Education/Training Program; Visit Provider Student in an Organized Health Care Education/Training Program
DX: T82.868A Thrombosis due to vascular prosthetic devices, implants and grafts, initial encounter (principal); Y82.9 Unspecified medical devices associated with adverse incidents
CPT/HCPCS: 93971

== ENCOUNTER → 2023-01-02 | Outpatient (CLI) | payer MEDICARE, SELFPAY ==
--- NOTE | 2023-01-02 06:41 | MRI_ITS ---
EXAM: MR HEAD WITHOUT AND WITH INTRAVENOUS CONTRAST CLINICAL INDICATION: Primary endometrial carcinoma presenting for restaging examination. Abnormal PET scan. Evaluate for brain metastases. TECHNIQUE: Multiplanar and multisequence MR images of the brain were obtained without and with intravenous contrast. CONTRAST: 15 mL of IV Clariscan. COMPARISON: No relevant prior studies available. FINDINGS: BRAIN AND EXTRA-AXIAL SPACES: Small T2 FLAIR hyperintensity focus in the right anterior subinsular white matter without mass effect is nonspecific. This may be secondary to microvascular disease. Following IV contrast administration, there are no abnormally enhancing lesions intra-axially and extra-axially. No intra- or extra-axial hemorrhage. No evidence of acute infarct. There is preservation of the liu/white matter interface. Posterior fossa structures are unremarkable. Ventricles are appropriate for age. No hydrocephalus. Basal cisterns are patent. No other focal signal abnormalities throughout the brain parenchyma. SELLA: Unremarkable. Normal sella turcica, pituitary gland, infundibular stalk, optic chiasm and hypothalamus. AUDITORY SYSTEM: Unremarkable. The internal auditory canals are patent. BONES/JOINTS: Unremarkable. No discrete lytic or blastic abnormalities. SINUSES: Unremarkable as visualized. Clear. MASTOID AIR CELLS: Unremarkable as visualized. Clear. ORBITS: Unremarkable as visualized. Both globes, extraocular muscles, optic nerves and retrobulbar fat appear unremarkable. VASCULATURE: Unremarkable as visualized. Normal flow voids in the major intracranial circulation. MRI/Brain W/WO Contrast IMPRESSION: 1. No MRI evidence of brain metastases. 2. Small solitary nonspecific T2 FLAIR hyperintensity focus in the right anterior subinsular white matter is most likely secondary to microvascular disease or nonspecific gliosis. 3. No abnormally enhancing lesions intra-axially and extra-axially. Electronically Signed: Dennis Villarreal MD at 9:07 EDT ,
[2023-01-02] MEDS: 0.9 % NaCl (Sterile) Posiflush 10 mL IV (07:45)
== END | disposition home or self-care (01) ==
LOC: MRI 06:39
PROVIDERS: PCP Internal Medicine; Referring Provider Student in an Organized Health Care Education/Training Program; Visit Provider Student in an Organized Health Care Education/Training Program
DX: R94.8 Abnormal results of function studies of other organs and systems (principal)
CPT/HCPCS: 70553; A9575; A4216

== ENCOUNTER → 2023-02-04 | Outpatient (CLI) | payer MEDICARE, SELFPAY ==
--- NOTE | 2023-02-04 07:17 | CT_ITS ---
STUDY: CT CHEST T ABDOMEN WITHOUT CONTRAST REASON FOR EXAM: Female, 67 years old. Known carcinoma with metastasis RADIATION DOSAGE (If Supplied By Facility): CTDIvol = ( 9.44 ) mGy, DLP = ( 614.58 ) mGycm TECHNIQUE: Transaxial imaging was performed without the administration of intravenous contrast material. Multiplanar coronal and sagittal images were reformatted. Individualized dose optimization techniques were used for this CT. COMPARISON: Multiple previous studies, PET study from 12/18/2022, CT abdomen and pelvis from 11/04/2022 FINDINGS: CHEST The lungs are normal. There is no demonstrated pleural abnormality. Normal heart and pericardium. Normal mediastinum. Normal hilar regions. Normal unenhanced pulmonary arteries. Normal aorta arch and descending thoracic aorta. There are multi-level degenerative changes of the thoracic spine. Stable likely hemangioma at T11 ABDOMEN Normal liver. Normal gallbladder and extrahepatic biliary system. Normal spleen. Normal pancreas. Normal bilateral adrenal glands. Normal right kidney. Normal left kidney. Normal visualized stomach. Normal small intestine. Normal colon. There is non-visualization of the appendix. Normal abdominal aorta. Normal inferior vena cava. Persistent mesenteric and retroperitoneal lymph nodes the largest retroperitoneal lymph node measuring approximately 3.21 x 1.40 cm essentially unchanged compared to previous CT but system with metastasis. This study did not include the pelvis so no comment can be made upon previously noted pelvic lymphadenopathy. Normal abdominal wall. There are diffuse degenerative changes of the visualized lumbar spine. CT/CT Chest AND Abd W/O Contrast IMPRESSION: Persistent suspicious retroperitoneal adenopathy consistent with metastasis. No significant interval change since the previous study from October There are persistent subcentimeter mesenteric and retroperitoneal lymph nodes as well but these are not suspiciously enlarged. No acute pulmonary process No suspicious solid organ abnormality Degenerative bony changes Electronically Signed: Corwin Saab MD at 9:24 EST ,
== END | disposition home or self-care (01) ==
LOC: CT 07:15
PROVIDERS: PCP Internal Medicine; Referring Provider Student in an Organized Health Care Education/Training Program; Visit Provider Student in an Organized Health Care Education/Training Program
DX: C54.1 Malignant neoplasm of endometrium (principal)
CPT/HCPCS: 71250; 74150

== ENCOUNTER → 2023-02-06 | Outpatient (CLI) | payer MEDICARE, SELFPAY ==
--- NOTE | 2023-02-06 11:16 | MRI_ITS ---
STUDY: MR PELVIS WITH T WITHOUT CONTRAST REASON FOR EXAM: Female, 67 years old. eval response to radiation and plan for brachyther -- please compare to prior TECHNIQUE: Standardized fat and water weighted pulse sequences were obtained in all 3 orthogonal planes, pre-and post contrast administration. IV 15ml clariscan was administered for the contrast portion of the examination. COMPARISON: Prior study dated: 12/10/2022 FINDINGS: Normal urinary bladder. Normal visualized small intestine. Normal visualized colon. Status post hysterectomy and bilateral oophorectomy. Interval decrease in size of hypoenhancing tumor in the vaginal cuff now measuring approximately 2.5 x 1.1 x 0.6 cm, previously 2.5 x 1.6 x 1 cm. There appears to be disruption of the anterior vaginal wall, however no gross invasion of the bladder or rectum. No new sites of metastatic disease. Interval slight decrease in size of right pelvic sidewall and external iliac lymphadenopathy. For example, a right external iliac node measures 3 x 1.6 cm, previously 3.4 x 1.9 cm. Grossly stable bilateral inguinal prominent lymph nodes. Normal visualized pelvic arteries. Normal osseous structures. Normal abdominal wall. MRI/Pelvis W/WO Contrast IMPRESSION: Positive treatment response with decreased size of hypoenhancing tumor in the vaginal cuff, slight decrease in size of right pelvic sidewall and external iliac lymphadenopathy and grossly stable bilateral inguinal lymph nodes. There appears to be slight disruption of the anterior vaginal wall which could be related to post-radiation changes. No gross tumor invasion of the bladder or rectum. No new sites of metastatic disease. Electronically Signed: Christiano Duran MD at 21:24 EST ,
== END | disposition home or self-care (01) ==
PROVIDERS: PCP Internal Medicine; Referring Provider Student in an Organized Health Care Education/Training Program; Visit Provider Student in an Organized Health Care Education/Training Program
DX: C54.1 Malignant neoplasm of endometrium (principal)
CPT/HCPCS: 72197; A9575

== ENCOUNTER → 2023-11-15 | Outpatient (CLI) | payer MEDICARE, SELFPAY ==
--- NOTE | 2023-11-15 13:05 | CT_ITS ---
STUDY: CT CHEST, ABDOMEN T PELVIS WITHOUT CONTRAST REASON FOR EXAM: Female, 68 years old. ENDOMETRIAL CANCER. History of metastatic disease. RADIATION DOSAGE (If Supplied By Facility): CTDIvol = ( 7.64 ) mGy, DLP = ( 1017.19 ) mGycm TECHNIQUE: Transaxial imaging was performed without the administration of intravenous contrast material. Multiplanar coronal and sagittal images were reformatted. Individualized dose optimization techniques were used for this CT. COMPARISON: Comparison is made with prior study dated February 04, 2023. FINDINGS: CHEST A right-sided Port-A-Cath is seen with the tip in the superior vena cava. The lungs are normal. There is no demonstrated pleural abnormality. Normal heart and pericardium. Normal mediastinum. Normal hilar regions. Normal unenhanced pulmonary arteries. Normal aorta arch and descending thoracic aorta. There are degenerative changes of the thoracic spine. Findings suggestive of a hemangioma at the T11 vertebrae. This is unchanged. ABDOMEN There is a new 3.9 cm x 3.3 cm 3.4 cm hypodense nodule in the inferior aspect of the right lobe of the liver. A metastatic deposit should be ruled out. Normal gallbladder and extrahepatic biliary system. Normal spleen. Normal pancreas. Normal bilateral adrenal glands. Normal right kidney. Normal left kidney. Normal visualized stomach. Normal small intestine. There are multiple colonic diverticula consistent with diverticulosis. The appendix is visualized and appears normal. Normal abdominal aorta. Normal inferior vena cava. There has been decreased size of the left retroperitoneal lymphadenopathy as compared to the prior study. Surgical clips are seen in the right inguinal region. There are degenerative changes of the visualized lumbar spine. PELVIS Normal urinary bladder. The patient is status post hysterectomy. Normal visualized small intestine. Normal visualized colon. There is no pelvic fluid. There is no pelvic lymphadenopathy or mass lesion. There is diffuse atherosclerotic calcification of the pelvic arteries. CT/CT Chest, Abd, Pelvis WO Cont IMPRESSION: There is a new 3.9 cm x 3.37 x 3.4 cm hypodense nodule in the inferior aspect of the right lobe of the liver. A metastatic deposit should be ruled out. There is improvement in the retroperitoneal lymphadenopathy. The patient status post hysterectomy and right inguinal biopsy. Electronically Signed: Milan Tello MD at 13:39 EDT ,
== END | disposition home or self-care (01) ==
PROVIDERS: PCP Internal Medicine; Referring Provider Internal Medicine Medical Oncology; Visit Provider Internal Medicine Medical Oncology
DX: C54.1 Malignant neoplasm of endometrium (principal); C77.1 Secondary and unspecified malignant neoplasm of intrathoracic lymph nodes
CPT/HCPCS: 71250; 74176

== ENCOUNTER 2023-11-29 15:10 | Emergency (ER) | payer MEDICARE, SELFPAY ==
[2023-11-29] VITALS (10 sets, daily range): BP systolic 112–146; BP diastolic 61–99; PULSE 63–81; RESP 10–22; TEMP 36.6–36.7; O2SAT 97–100; BMI 26.2
--- NOTE | 2023-11-29 15:36 | EKG12_ITS ---
Test Reason : Blood Pressure : / mmHG Vent. Rate : 072 BPM Atrial Rate : 072 BPM P-R Int : 140 ms QRS Dur : 072 ms QT Int : 406 ms P-R-T Axes : -14 -07 062 degrees QTc Int : 444 ms Normal sinus rhythm Minimal voltage criteria for LVH, may be normal variant ( R in aVL ) Borderline ECG Confirmed by Andrew Soriano ([id number]), editorial director ANNA MARIE SIMONS ([id number]) on 12/02/2023 11:14:15 AM Referred By: Confirmed By:Andrew Soriano
--- NOTE | 2023-11-29 15:40 | ED.VIS.CHEST ---
HPI History of Present Illness Chief Complaint: Chest Pain Informant: patient and spouse/S.O. Narrative Narrative: 68-year-old female with a history of metastatic endometrial cancer states she was sitting watching TV at her home for 5 hours prior to evaluation when she all of a sudden started having chest discomfort just left of sternum radiating straight through to her back, also now radiating into the right inframammary area of her chest, the left parasternal discomfort and back are pleuritic. She denies dyspnea. No recent cough or fever/chills. No leg pain or swelling. Less time she had radiation and chemotherapy was back in May and she was told that she does not have any other options. She confirms that she had disease in her mediastinum but nowhere else that she knows of above the diaphragm. She has chronic constipation and for the last several weeks she has had trouble urinating, with urgency and then only being able to get out a tablespoon or more of urine at a time. She has frequency. No dysuria or hematuria. [facility] Medical History (Updated 11/29/23 @ 18:[address] Dell Brooks MD) Vulvar lesion Dehydration Hypokalemia Night sweats CINV (chemotherapy-induced nausea and vomiting) Cancer related pain Thrombosis complicating venous access device Encounter for immunotherapy Encounter for monitoring cardiotoxic drug therapy Tightness in chest Arthralgia Fatigue Hypertension Elevated BP without diagnosis of hypertension Vaginal candidiasis COVID-19 Increased appetite Neuropathy due to chemotherapeutic drug Superficial vein thrombosis Left leg pain Left leg swelling Diarrhea due to drug Upper abdominal pain Hypotension Papillary serous adenocarcinoma of ovary Port-A-Cath in place Constipation Encounter for chemotherapy management Encounter for education Cancer Gastric reflux Non-smoker Ovarian cancer Home Medications ?Medication ?Instructions ?Recorded ?Last Taken ?Type lidocaine-prilocaine 2.5 %-2.5 % 1 applic topical ONCE PRN port 10/05/20 Unknown Rx topical cream access 30 days #30 grams ondansetron 8 mg disintegrating 8 mg PO Q8H PRN nausea and 07/02/22 Unknown Rx tablet vomiting #30 tabs arginine 7 gram-glutamine 7 1 ea PO DAILY 07/23/22 Unknown History gram-calcium HMB 1.5 gram oral powder pack (Rip) bisacodyl 5 mg tablet,delayed 5 mg PO DAILY PRN 09/17/22 Unknown History release (Dulcolax (bisacodyl)) megestrol 40 mg tablet 40 mg PO BID #60 tabs 11/07/22 Unknown Rx metoclopramide HCl 10 mg tablet 10 mg PO Q6H PRN nausea and 01/21/23 Unknown Rx (Reglan) vomiting #30 tabs vitamin B complex 1 cap PO DAILY 03/20/23 Unknown History citalopram 20 mg tablet 20 mg PO DAILY #90 TABLETS 09/09/23 Unknown Rx fenbendazole PO 10/02/23 Unknown History tamoxifen 20 mg tablet 100 mg (5 x 20 mg) PO DAILY #150 11/04/23 Unknown Rx tabs pantoprazole 20 mg tablet,delayed 20 mg PO DAILY #30 tabs 11/29/23 Unknown Rx release Allergy/AdvReac Type Severity Reaction Status Date / Time Iodinated Contrast Media Allergy Severe Anaphylaxis Verified 11/29/23 15:10 Family History Mother Cancer Cervical cancer at 35 years and lung cancer later in life Father Cancer Sister Cancer Cervical cancer Brother Diabetes Surgical History H/O total hysterectomy Hx of breast reduction, elective History of delivery Social History Smoking Status: Never smoker alcohol intake: current details: social substance use type: does not use caffeine: No what type of physical activity do you participate in: walking frequency: 5-6 times per week seatbelt use: always do you feel safe at home: Yes 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 history: [employer]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 [employer] ROS ROS ED Constitutional Constitutional ED: Denies chills or fever(s) Eyes Eyes: Denies change in vision or diplopia ENT ENT ED: Denies rhinorrhea or sore throat Cardiovascular Cardiovascular: Reports as per HPI and chest pain; Denies palpitations Respiratory/Chest Respiratory/Chest: Denies cough or dyspnea Gastrointestinal Gastrointestinal: Reports abdominal pain and constipation; Denies diarrhea, nausea or vomiting Genitourinary Genitourinary ED: Reports difficulty urinating and urinary frequency; Denies dysuria or hematuria Musculoskeletal Musculoskeletal: Reports back pain; Denies neck pain Integumentary Denies abscess or rash Neurologic Neurologic: Denies headache(s), paresthesias or weakness Psychiatric Psychiatric: Denies anxiety or suicidal thoughts EXAM Physical Exam Const Vital Signs: 11/29/23 15:10 11/29/23 15:13 11/29/23 15:36 Temperature 98.1 F Temperature Source Temporal Pulse Rate 81 69 Respiratory Rate 18 22 H Respiratory Effort Blood Pressure 121/69 H 120/69 Blood Pressure Mean 86 86 Pulse Ox 97 98 Oxygen Delivery Method Room Air Room Air 11/29/23 15:52 11/29/23 16:13 11/29/23 17:09 Temperature Temperature Source Pulse Rate 73 63 Respiratory Rate 15 13 Respiratory Effort Normal Non-Labored Blood Pressure 118/61 Blood Pressure Mean 80 Pulse Ox 99 100 Oxygen Delivery Method Room Air 11/29/23 17:15 11/29/23 17:26 11/29/23 17:32 Temperature Temperature Source Pulse Rate 76 Respiratory Rate 17 Respiratory Effort Blood Pressure 112/99 H Blood Pressure Mean 105 Pulse Ox 98 Oxygen Delivery Method 11/29/23 17:45 11/29/23 18:00 11/29/23 18:17 Temperature 97.8 F Temperature Source Pulse Rate 70 66 71 Respiratory Rate 10 L 13 13 Respiratory Effort Blood Pressure 112/64 127/62 H 146/61 H Blood Pressure Mean 78 79 89 Pulse Ox 97 99 97 Oxygen Delivery Method Positive well nourished and well developed General Appearance ED: well developed and NAD HEENT Reports moist mucous membranes normocephalic and atraumatic Eyes PERRL and EOMs intact bilaterally Neck full ROM and supple Chest Wall inspection of chest normal and palpation of chest normal Resp normal respiratory effort and clear to auscultation bilaterally Cardio regular rate, regular rhythm and no murmurs Rate: Negative for tachycardic Peripheral Pulses: pulses 2+ throughout GI non-tender and non-distended Auscultation: normoactive bowel sounds Palpation: soft Back/Spine no CVA tenderness General Back: other FROM Extremity normal to inspection General Extremety ED: Negative for edema, pulses abnormal or tenderness General Extremity: Negative for edema or pulses abnormal Neuro oriented x3, CN's II-XII intact bilaterally and no sensory deficits noted Sensorium / Orientation: awake and alert Motor Exam: strength 5/5 throughout Psych mental status grossly normal Skin no rashes or lesions noted and no wounds Heart Score History: Slightly/Non-Suspicious ECG: Nonspecific Repolarization Age: >/= 65 years Risk Factors: No Risk Factors Score: 3 MDM MDM MDM Narrative Medical decision making narrative: Given the patient's history of metastatic cancer, she is at high risk for pulmonary embolus and she is not on any anticoagulants for any reason. While obtaining a chest x-ray and cardiopulmonary workup otherwise, I did add a D-dimer in the off chance that we could avoid a CT angiogram of the chest, however it was significantly elevated. 1 view chest x-ray my interpretation is normal. Her blood work is normal including her cardiac enzymes, and her EKG is unremarkable, she has a nonspecific ST-T wave abnormalities but they are identical to her old EKG. I reviewed her CT angiography of the chest as well as the report which I agree with, it is negative for any acute including pulmonary embolus or other acute findings. Hepatic metastases were noted, I discussed that with the patient and her family she already knows about that. In the meantime we gave her GI cocktail and her symptoms were almost completely resolved she definitely felt better from it. Esophageal etiologies are certainly in the differential here. She is already on pantoprazole and asking for refill, I will give her prescription and have her follow-up with her doctor. She is comfortable with that plan. Of note, the patient has a history of anaphylactoid reaction to IV contrast dye, so she was pretreated here prior to her CTA, she developed no adverse reaction to the dye. Lab Data Attestation: I reviewed the patient's lab results. Labs: Laboratory Results - last 24 hr 11/29/23 15:56 WBC 5.4 RBC 3.24 L Hgb 10.2 L Hct 31.5 L MCV 97.2 MCH 31.5 MCHC 32.4 RDW Std Deviation 45.1 H RDW Coeff of José Antonio 12.7 Plt Count 177 MPV 9.3 Immature Gran % (Auto) 0.400 Neut % (Auto) 75.8 H Lymph % (Auto) 11.8 L [place] % (Auto) 11.0 H Eos % (Auto) 0.6 Baso % (Auto) 0.4 Absolute Neuts (auto) 4.1 Absolute Lymphs (auto) 0.63 L Nucleated RBC % 0 D-Dimer Quant (PE/DVT) 2.34 H* Sodium 140 Potassium 3.6 Chloride 112 H Carbon Dioxide 22.0 Anion Gap 6 BUN 15 Creatinine 0.61 Estim Creat Clear Calc 63.45 Est GFR (MDRD) Af Amer 125 Est GFR (MDRD) Non-Af 103 BUN/Creatinine Ratio 24.6 H Glucose 138 H Calcium 8.2 L Troponin I High Sens 5 Radiography Diagnostic Testing: Clinical Impression(s) from Imaging Studies Chest X-Ray 11/29/23 16:30 IMPRESSION: No radiographic evidence of acute cardiopulmonary disease. Electronically Signed: Christiano Francis DO at 17:27 EDT , Chest CTA 11/29/23 16:34 IMPRESSION: No demonstrated pulmonary embolism or arterial dissection. Hepatic lesions likely related to metastasis. Electronically Signed: Christiano Francis DO at 17:42 EDT , Rhythm Strip Rhythm Strip: Sinus Rhythm Rate: 72 Ectopy: None EKG Initial EKG: Attestation: I personally reviewed and interpreted this EKG as follows: Interpretation: Sinus Rhythm, No Acute Injury Pattern and Non-Specific ST Changes (in form of T-wave flattening ant and inf) Prior EKG tracings: available for review Prior: Unchanged Discharge Plan Triage Chief Complaint: Chest Pain ED Provider: Dell Brooks Dx/Rx/DC Orders Clinical Impression: Chest pain, unspecified Instructions: ED Chest Pain, Noncardiac Prescriptions: Continued pantoprazole 20 mg tablet,delayed release (DR/EC) 20 mg PO DAILY Qty: 30 0RF No Action lidocaine-prilocaine 2.5-2.5 % cream 1 applic topical ONCE PRN (Reason: port access) 30 Days Qty: 30 2RF Rip 7-7-1.5 gram Powder In Packet 1 ea PO DAILY bisacodyl [Dulcolax (bisacodyl)] 5 mg tablet,delayed release (DR/EC) 5 mg PO DAILY PRN metoclopramide HCl [Reglan] 10 mg tablet 10 mg PO Q6H PRN (Reason: nausea and vomiting) Qty: 30 0RF vitamin B complex Capsule 1 cap PO DAILY fenbendazole PO tamoxifen 20 mg tablet 100 mg PO DAILY Qty: 150 1RF ondansetron 8 mg tablet,disintegrating 8 mg PO Q8H PRN (Reason: nausea and vomiting) Qty: 30 2RF megestrol 40 mg tablet 40 mg PO BID Qty: 60 1RF citalopram 20 mg tablet 20 mg PO DAILY Qty: 90 4RF Primary Care Provider: Kwasi Reyes Referrals: Kwasi Reyes MD [Primary Care Provider] - 1 Week if not improving Print Language: Albanian Disposition Disposition: Home, Self Care
[2023-11-29 16:04] LABS: Absolute Lymphocyte Count 0.63 X10^3/uL (0.83-4.51); Absolute Neutrophil Count 4.1 X10^3/uL (2.0-7.7); Basophil# 0.02 X10^3/uL; Basophil% 0.4 % (0-1); Eosinophil# 0.03 X10^3/uL; Eosinophils% 0.6 % (0-5); Hematocrit 31.5 % (37-47); Hemoglobin 10.2 g/dL (12.0-15.0); Lymphocyte # 0.63 X10^3/ul (0.83-4.51); Lymphocyte % 11.8 % (19-41); Mean Corp Hgb Conc 32.4 g/dL (32-36); Mean Corpuscular Hgb 31.5 pg (27.0-32.0); Mean Corpuscular Volume 97.2 fL (81-99); Mean Platelet Vol. 9.3 fl (6.2-12.0); Monocyte# 0.59 X10^3/uL; NRBC Flagged by Analyzer 0 % (0-5); Neutrophil # 4.06 X10^3/uL (2.7-7.7); Neutrophil % 75.8 % (47-70); Platelet Count 177 K/mm3 (150-450); RBC Distribution Width CV 12.7 % (11.6-14.6); RBC Distribution Width SD 45.1 fl (35.1-43.9); Red Blood Count 3.24 M/mm3 (4.2-5.4); White Blood Count 5.4 K/mm3 (4.4-11.0)
[2023-11-29] MEDS: Lidocaine 2% Viscous15 ML UDC 15 ML PO (16:07)
[2023-11-29] MEDS: DiphenhydrAMINE 50 MG/ML Syringe IV (16:07)
[2023-11-29] MEDS: Mag /Aluminum/Simeth WCH UDC 30 ML ORAL.SUSP PO (16:07)
[2023-11-29] MEDS: 0.9% Normal Saline (1000mL) 1,000 ML 150 ML IV (16:08)
[2023-11-29 16:26] LABS: Anion Gap 6 (5-15); BUN 15 mg/dL (7-18); BUN/Creat Ratio 24.6 RATIO (10-20); Calcium,Total 8.2 mg/dL (8.5-10.1); Chloride 112 mmol/L (98-107); Creatinine, Serum 0.61 mg/dL (0.55-1.02); D-Dimer Quantitative (DVT/PE) 2.34 FEU/ug/m (0.27-0.49); EST Glomerular Filtration Rate 103 mL/min (>60); Est Glom Filt Rate - Afr Amer 125 mL/min (>60); Estimated Creatinine Clearance 63.45 ml/min; Glucose 138 mg/dL (74-106); Potassium 3.6 mmol/L (3.5-5.1); Sodium Level 140 mmol/L (136-145); Troponin-I HS (w/2H Reflex) 5 pg/mL (3.0-54.0)
--- NOTE | 2023-11-29 16:30 | RAD_ITS ---
INDICATION: chest pain EXAMINATION/TECHNIQUE: X-RAY - XR Chest 1 View COMPARISON: FINDINGS: LINES/DEVICES: Right venous port with tip at the SVC/right atrial junction. LUNGS: No consolidation, edema or effusion. No pneumothorax. MEDIASTINUM AND CARDIOVASCULAR STRUCTURES: Cardiac silhouette not enlarged. Central airways and mediastinal contour are unremarkable. BONES AND SOFT TISSUES: Degenerative vertebral changes. RAD/Chest 1 View (Portable) IMPRESSION: No radiographic evidence of acute cardiopulmonary disease. Electronically Signed: Christiano Francis DO at 17:27 EDT ,
--- NOTE | 2023-11-29 16:34 | CT_ITS ---
STUDY: CTA CHEST REASON FOR EXAM: Female, 68 years old. chest pain, elevated d-dimer RADIATION DOSAGE (If Supplied By Facility): CTDIvol = ( 8.12 ) mGy, DLP = ( 229.15 ) mGycm TECHNIQUE: The examination was performed with the intravenous administration of IV 75mL [id number]-[id number]. Post-processing of the angiographic images was performed, with multiplanar reformation and 3D reconstruction. The protocol utilizes one or more of the following dose reduction techniques: automated exposure control, adjustment of mA and/or kV according to patient size,and/or use of iterative reconstruction technique. COMPARISON: FINDINGS: Normal enhancement of the main pulmonary artery and right and left pulmonary arteries. Normal enhancement of the bilateral peripheral pulmonary arteries. There is no demonstrated pulmonary embolism. Normal thoracic aorta and visualized great vessels. There is no demonstrated aortic dissection. Normal heart and pericardium. Normal mediastinum. Normal hilar regions. Normal visualized trachea and bronchi. The lungs are well expanded. Normal pulmonary parenchyma. Normal pleura. Normal chest wall structures. Normal osseous structures. Multiple hepatic lesions suggesting metastasis. CT/CTA Chest W/WO Contrast IMPRESSION: No demonstrated pulmonary embolism or arterial dissection. Hepatic lesions likely related to metastasis. Electronically Signed: Christiano Francis DO at 17:42 EDT ,
[2023-11-29 18:01] LABS: Reflex Troponin-HS? (from REC) Y
[2023-11-29 19:25] LABS: Troponin-I HS 6 pg/mL (3.0-54.0)
== END 2023-11-29 18:33 | disposition home or self-care (01) ==
PROVIDERS: Emergency Provider Emergency Medicine; PCP Internal Medicine; Visit Provider Emergency Medicine
DX: R07.9 Chest pain, unspecified (principal); C78.7 Secondary malignant neoplasm of liver and intrahepatic bile duct; I10 Essential (primary) hypertension; Z85.89 Personal history of malignant neoplasm of other organs and systems; Z92.21 Personal history of antineoplastic chemotherapy; Z85.43 Personal history of malignant neoplasm of ovary; K21.9 Gastro-esophageal reflux disease without esophagitis; Z79.899 Other long term (current) drug therapy; Z90.710 Acquired absence of both cervix and uterus
CPT/HCPCS: 36591; 71045; 71275; 80048; 84484; 85025; 85379; 93005; 96361; 96374; 96375; 99285; J7030; Q9967; A4216

== ENCOUNTER → 2023-12-12 | Outpatient (CLI) | payer MEDICARE, SELFPAY ==
--- NOTE | 2023-12-12 08:18 | MRI_ITS ---
EXAM: MR HEAD WITHOUT AND WITH INTRAVENOUS CONTRAST CLINICAL INDICATION: DIZZINESS/ENDOMETRIAL CA TECHNIQUE: Multiplanar and multisequence MR images of the brain were obtained without and with intravenous contrast. CONTRAST: 14CC [facility] COMPARISON: MR Head dated 01/02/2023 FINDINGS: BRAIN AND EXTRA-AXIAL SPACES: Stable foci of increased T2 signal intensity within the frontal cerebral white matter suggestive of chronic microvascular change. No intra- or extra-axial hemorrhage. No evidence of acute infarct. No intracranial mass or mass effect. No abnormal contrast enhancement. Normal preservation of the liu/white matter interface. Posterior fossa structures are unremarkable. Ventricles are appropriate for age. No hydrocephalus. Basal cisterns are patent. SELLA: Normal. Normal sella turcica, pituitary gland, infundibular stalk, optic chiasm and hypothalamus. AUDITORY SYSTEM: Normal. The internal auditory canals are patent. BONES/JOINTS: Intact calvarium. SINUSES: Unremarkable as visualized. Clear. MASTOID AIR CELLS: Unremarkable as visualized. Clear. ORBITS: Unremarkable as visualized. Both globes, extraocular muscles, optic nerves and retrobulbar fat appear unremarkable. VASCULATURE: Unremarkable as visualized. Normal flow voids in the major intracranial circulation. MRI/Brain W/WO Contrast IMPRESSION: No acute intracranial abnormality. No interval change. Electronically Signed: Omar Burger MD at 16:37 EDT ,
[2023-12-12] MEDS: 0.9% Saline Lock 10 ML Syringe IV ×2 (09:00→09:02)
== END | disposition home or self-care (01) ==
PROVIDERS: PCP Internal Medicine; Referring Provider Internal Medicine Medical Oncology; Visit Provider Internal Medicine Medical Oncology
DX: R42 Dizziness and giddiness (principal); C54.1 Malignant neoplasm of endometrium
CPT/HCPCS: 70553; A9575; A4216

== ENCOUNTER 2024-01-25 12:51 | Observation (INO) | payer MEDICARE, SELFPAY ==
[2024-01-25 12:53] VITALS: BP 151/91; PULSE 72; RESP 18; TEMP 36.6; O2SAT 100
[2024-01-25] MEDS: Morphine 4 MG/ML Syringe IV (13:18)
[2024-01-25] MEDS: Ondansetron 4 MG/2 ML Vial IV (13:18)
[2024-01-25 13:26] VITALS: BMI 29.5
[2024-01-25 13:26] LABS: Absolute Lymphocyte Count 0.74 X10^3/uL (0.83-4.51); Absolute Neutrophil Count 4.9 X10^3/uL (2.0-7.7); Basophil# 0.02 X10^3/uL; Basophil% 0.3 % (0-1); Eosinophil# 0.03 X10^3/uL; Eosinophils% 0.5 % (0-5); Hematocrit 31.7 % (37-47); Hemoglobin 10.6 g/dL (12.0-15.0); Lymphocyte # 0.74 X10^3/ul (0.83-4.51); Lymphocyte % 11.7 % (19-41); Mean Corp Hgb Conc 33.4 g/dL (32-36); Mean Corpuscular Volume 95.8 fL (81-99); Mean Platelet Vol. 8.9 fl (6.2-12.0); Monocyte# 0.61 X10^3/uL; Monocyte% 9.7 % (0-10); NRBC Flagged by Analyzer 0 % (0-5); Neutrophil # 4.88 X10^3/uL (2.7-7.7); Neutrophil % 77.3 % (47-70); Platelet Count 166 K/mm3 (150-450); RBC Distribution Width CV 13.2 % (11.6-14.6); RBC Distribution Width SD 46.2 fl (35.1-43.9); Red Blood Count 3.31 M/mm3 (4.2-5.4); White Blood Count 6.3 K/mm3 (4.4-11.0)
[2024-01-25 13:38] LABS: AST(SGOT) 25 U/L (15-37); Alanine Aminotransfer ALT/SGPT 12 U/L (13-56); Albumin, Serum 3.3 g/dL (3.2-5.0); Alkaline Phosphatase 68 U/L (45-117); Anion Gap 7 (5-15); BUN 22 mg/dL (7-18); BUN/Creat Ratio 30.9 RATIO (10-20); Bilirubin, Direct 0.09 mg/dL (0.00-0.30); Calcium,Total 8.7 mg/dL (8.5-10.1); Chloride 110 mmol/L (98-107); Creatinine, Serum 0.71 mg/dL (0.55-1.02); EST Glomerular Filtration Rate 87 mL/min (>60); Est Glom Filt Rate - Afr Amer 105 mL/min (>60); Estimated Creatinine Clearance 67.16 ml/min; Globulin 3.5 g/dL (2.2-4.2); Glucose 122 mg/dL (74-106); Potassium 3.7 mmol/L (3.5-5.1); Protein, Total 6.8 g/dL (6.4-8.2); Sodium Level 139 mmol/L (136-145)
[2024-01-25 13:59] LABS: International Normalized Ratio 1.3; Partial Thromboplast Time 29.4 Seconds (24.1-36.2); Prothrombin Time (Protime)PT. 15.7 SECONDS (11.7-14.9)
[2024-01-25] MEDS: Enoxaparin 80 MG/0.8 ML Syringe SC (14:32)
[2024-01-25 14:53] VITALS: BP 132/68; PULSE 74; RESP 19; TEMP 36.9; O2SAT 100
[2024-01-25 15:11] VITALS: BMI 26.4
[2024-01-25 15:33] VITALS: BP 193/98; PULSE 70; RESP 16; TEMP 36.8; O2SAT 100
[2024-01-25] MEDS: oxyCODONE 5 MG Tablet PO ×2 (15:45→21:40)
[2024-01-25] MEDS: Bisacodyl 5 MG Tablet PO (15:45)
[2024-01-25] MEDS: HEPARIN/D5w 25,000 UNITS 25,000 UNITS/250 ML IV.SOLN. 10 UNITS CONT INF (16:07)
[2024-01-25 16:49] VITALS: BP 140/75
[2024-01-25 21:35] VITALS: BP 148/78; PULSE 88; RESP 16; TEMP 36.6; O2SAT 98
[2024-01-25] MEDS: Acetaminophen 500 MG Tablet 1000 MG PO (21:40)
[2024-01-25 22:19] LABS: Partial Thromboplast Time 120.5 Seconds (24.1-36.2)
[2024-01-26 03:30] VITALS: BP 93/63; PULSE 65; RESP 16; TEMP 36.6; O2SAT 98
[2024-01-26 07:44] LABS: Absolute Lymphocyte Count 0.79 X10^3/uL (0.83-4.51); Absolute Neutrophil Count 2.5 X10^3/uL (2.0-7.7); Basophil# 0.01 X10^3/uL; Basophil% 0.3 % (0-1); Eosinophil# 0.06 X10^3/uL; Eosinophils% 1.6 % (0-5); Hematocrit 30.2 % (37-47); Hemoglobin 9.7 g/dL (12.0-15.0); Lymphocyte # 0.79 X10^3/ul (0.83-4.51); Lymphocyte % 20.5 % (19-41); Mean Corp Hgb Conc 32.1 g/dL (32-36); Mean Corpuscular Hgb 31.3 pg (27.0-32.0); Mean Corpuscular Volume 97.4 fL (81-99); Monocyte# 0.47 X10^3/uL; Monocyte% 12.2 % (0-10); NRBC Flagged by Analyzer 0 % (0-5); Neutrophil # 2.52 X10^3/uL (2.7-7.7); Neutrophil % 65.1 % (47-70); Platelet Count 155 K/mm3 (150-450); RBC Distribution Width CV 13.3 % (11.6-14.6); RBC Distribution Width SD 48.2 fl (35.1-43.9); White Blood Count 3.9 K/mm3 (4.4-11.0)
[2024-01-26] MEDS: oxyCODONE 5 MG Tablet PO ×2 (08:05→12:41)
[2024-01-26] MEDS: Megestrol 40 MG Tablet PO (08:07)
[2024-01-26] MEDS: Citalopram 20 MG Tablet PO (08:07)
[2024-01-26] MEDS: Pantoprazole Sodium 20 MG Tablet PO (08:07)
[2024-01-26 08:20] LABS: International Normalized Ratio 1.2; Prothrombin Time (Protime)PT. 15.1 SECONDS (11.7-14.9)
[2024-01-26 09:00] VITALS: BP 112/71; PULSE 69; RESP 16; TEMP 36.3; O2SAT 99
[2024-01-26 09:10] LABS: ALB/GLOB Ratio 0.9 RATIO (0.9-2.4); AST(SGOT) 20 U/L (15-37); Alanine Aminotransfer ALT/SGPT 7 U/L (13-56); Albumin, Serum 2.9 g/dL (3.2-5.0); Alkaline Phosphatase 58 U/L (45-117); Anion Gap 3 (5-15); BUN 18 mg/dL (7-18); BUN/Creat Ratio 24.5 RATIO (10-20); Calcium,Total 8.3 mg/dL (8.5-10.1); Chloride 112 mmol/L (98-107); Creatinine, Serum 0.74 mg/dL (0.55-1.02); EST Glomerular Filtration Rate 83 mL/min (>60); Est Glom Filt Rate - Afr Amer 101 mL/min (>60); Estimated Creatinine Clearance 63.66 ml/min; Globulin 3.1 g/dL (2.2-4.2); Glucose 91 mg/dL (74-106); Magnesium 2.1 mg/dL (1.6-2.6); Phosphorus 3.7 mg/dL (2.5-4.9); Potassium 4.6 mmol/L (3.5-5.1); Sodium Level 141 mmol/L (136-145)
[2024-01-26] MEDS: Enoxaparin 80 MG/0.8 ML Syringe 70 MG SC (09:19)
[2024-01-26] MEDS: 0.9 % NaCl (Sterile) Posiflush 10 mL IV (12:09)
== END 2024-01-26 13:50 | disposition home or self-care (01) ==
LOC: ED 14:20 → MS3 01-26 06:45
PROVIDERS: Internal Medicine; Nurse Practitioner; Admitting Provider Internal Medicine; Emergency Provider Emergency Medicine; PCP Internal Medicine; Referring Provider Emergency Medicine; Visit Provider Internal Medicine
DX: I82.401 Acute embolism and thrombosis of unspecified deep veins of right lower extremity (principal); C77.8 Secondary and unspecified malignant neoplasm of lymph nodes of multiple regions; C78.7 Secondary malignant neoplasm of liver and intrahepatic bile duct; C78.1 Secondary malignant neoplasm of mediastinum; C79.82 Secondary malignant neoplasm of genital organs; C56.2 Malignant neoplasm of left ovary; K21.9 Gastro-esophageal reflux disease without esophagitis; K59.09 Other constipation; Z86.16 Personal history of COVID-19; D64.9 Anemia, unspecified; R60.0 Localized edema; I10 Essential (primary) hypertension; Z79.899 Other long term (current) drug therapy; F32.A Depression, unspecified
CPT/HCPCS: 96366; 96376; 36415; 36591; 80048; 80053; 80076; 82248; 83735; 84100; 84443; 85025; 85610; 85730; 93971; 96365; 96372; 96375; 97162; 97166; 99285; A4216; J2405

== ENCOUNTER 2024-01-29 20:01 | Inpatient (IN) | payer MEDICARE, SELFPAY ==
[2024-01-29 19:27] VITALS: BMI 27.3
[2024-01-29 20:00] VITALS: BP 143/70; PULSE 82; RESP 22; TEMP 36.7; O2SAT 98
[2024-01-29] MEDS: HYDROmorphone 0.5 MG/0.5 ML SYRINGE IV (21:15)
[2024-01-29] MEDS: Ondansetron 4 MG/2 ML Vial IV (21:15)
[2024-01-29] MEDS: 0.9% Normal Saline (1000mL) 1,000 ML 150 ML IV (21:16)
[2024-01-29] MEDS: HEPARIN/D5w 25,000 UNITS 25,000 UNITS/250 ML IV.SOLN. 11 UNITS CONT INF (21:16)
[2024-01-29 21:42] LABS: Absolute Lymphocyte Count 0.61 X10^3/uL (0.83-4.51); Absolute Neutrophil Count 4.8 X10^3/uL (2.0-7.7); Basophil# 0.01 X10^3/uL; Basophil% 0.2 % (0-1); Hematocrit 28.9 % (37-47); Hemoglobin 9.6 g/dL (12.0-15.0); Lymphocyte # 0.61 X10^3/ul (0.83-4.51); Lymphocyte % 10.3 % (19-41); Mean Corp Hgb Conc 33.2 g/dL (32-36); Mean Corpuscular Hgb 31.5 pg (27.0-32.0); Mean Corpuscular Volume 94.8 fL (81-99); Mean Platelet Vol. 9.2 fl (6.2-12.0); Monocyte# 0.51 X10^3/uL; Monocyte% 8.6 % (0-10); NRBC Flagged by Analyzer 0 % (0-5); Neutrophil # 4.79 X10^3/uL (2.7-7.7); Neutrophil % 80.4 % (47-70); Platelet Count 171 K/mm3 (150-450); RBC Distribution Width SD 45.4 fl (35.1-43.9); Red Blood Count 3.05 M/mm3 (4.2-5.4)
[2024-01-29 21:58] LABS: Anion Gap 6 (5-15); BUN 13 mg/dL (7-18); BUN/Creat Ratio 25.6 RATIO (10-20); Calcium,Total 8.5 mg/dL (8.5-10.1); Chloride 107 mmol/L (98-107); Creatinine, Serum 0.51 mg/dL (0.55-1.02); EST Glomerular Filtration Rate 128 mL/min (>60); Est Glom Filt Rate - Afr Amer 155 mL/min (>60); Estimated Creatinine Clearance 64.65 ml/min; Glucose 129 mg/dL (74-106); Potassium 3.4 mmol/L (3.5-5.1); Sodium Level 138 mmol/L (136-145)
[2024-01-29 22:37] LABS: International Normalized Ratio 1.3; Prothrombin Time (Protime)PT. 15.8 SECONDS (11.7-14.9)
[2024-01-29 22:39] LABS: Partial Thromboplast Time 80.8 Seconds (24.1-36.2)
[2024-01-29] MEDS: Potassium Chloride Oral Tablet 20 MEQ PO (23:56)
[2024-01-30] VITALS: BP 132/52; PULSE 73; RESP 15; TEMP 36.4; O2SAT 98
[2024-01-30] MEDS: HYDROmorphone 0.5 MG/0.5 ML SYRINGE IV ×3 (03:24→21:31)
[2024-01-30] MEDS: proCHLORPERazine 10 MG/2 ML Vial 5 MG IV ×2 (03:33→21:32)
[2024-01-30 03:39] LABS: Absolute Lymphocyte Count 0.97 X10^3/uL (0.83-4.51); Absolute Neutrophil Count 3.9 X10^3/uL (2.0-7.7); Basophil# 0.02 X10^3/uL; Basophil% 0.4 % (0-1); Eosinophil# 0.02 X10^3/uL; Eosinophils% 0.4 % (0-5); Hematocrit 28.5 % (37-47); Hemoglobin 9.4 g/dL (12.0-15.0); Lymphocyte # 0.97 X10^3/ul (0.83-4.51); Lymphocyte % 17.8 % (19-41); Mean Corpuscular Hgb 31.2 pg (27.0-32.0); Mean Corpuscular Volume 94.7 fL (81-99); Mean Platelet Vol. 9.1 fl (6.2-12.0); Monocyte# 0.55 X10^3/uL; Monocyte% 10.1 % (0-10); NRBC Flagged by Analyzer 0 % (0-5); Neutrophil # 3.88 X10^3/uL (2.7-7.7); Neutrophil % 70.9 % (47-70); Platelet Count 183 K/mm3 (150-450); RBC Distribution Width CV 13.2 % (11.6-14.6); RBC Distribution Width SD 45.3 fl (35.1-43.9); Red Blood Count 3.01 M/mm3 (4.2-5.4); White Blood Count 5.5 K/mm3 (4.4-11.0)
[2024-01-30 03:59] LABS: Anion Gap 6 (5-15); BUN 10 mg/dL (7-18); BUN/Creat Ratio 17.8 RATIO (10-20); Calcium,Total 8.3 mg/dL (8.5-10.1); Chloride 110 mmol/L (98-107); Creatinine, Serum 0.56 mg/dL (0.55-1.02); EST Glomerular Filtration Rate 113 mL/min (>60); Est Glom Filt Rate - Afr Amer 137 mL/min (>60); Estimated Creatinine Clearance 64.65 ml/min; Glucose 101 mg/dL (74-106); Potassium 3.7 mmol/L (3.5-5.1); Sodium Level 139 mmol/L (136-145)
[2024-01-30 04:29] LABS: Partial Thromboplast Time 169.9 Seconds (24.1-36.2)
[2024-01-30] MEDS: 0.9% Normal Saline (1000mL) 1,000 ML 150 ML IV (05:47)
[2024-01-30 06:00] VITALS: BP 108/58; PULSE 86; RESP 15; TEMP 36.4; O2SAT 95
[2024-01-30 12:00] VITALS: BP 138/57; PULSE 65; RESP 16; TEMP 36.7; O2SAT 100
[2024-01-30 13:23] LABS: Partial Thromboplast Time > 250.0 Seconds (24.1-36.2)
[2024-01-30] MEDS: Citalopram 20 MG Tablet PO (14:03)
[2024-01-30] MEDS: Bisacodyl 5 MG Tablet PO (14:03)
[2024-01-30] MEDS: Polyethylene Glycol 3350 17 GM PACKET GT ×2 (14:04→21:18)
[2024-01-30 16:24] VITALS: BP 149/65; PULSE 82; RESP 16; TEMP 36.9; O2SAT 98
[2024-01-30] MEDS: 0.9 % NaCl (Sterile) Posiflush 10 mL IV (17:18)
[2024-01-30] MEDS: Ondansetron 4 MG/2 ML Vial IV (17:18)
[2024-01-30 19:00] VITALS: PULSE 80
[2024-01-30] MEDS: predniSONE 10 MG Tablet 50 MG PO (21:18)
[2024-01-30 22:03] LABS: Partial Thromboplast Time 66.2 Seconds (24.1-36.2)
[2024-01-31] VITALS (7 sets, daily range): BP systolic 109–152; BP diastolic 57–81; PULSE 67–83; RESP 14–17; TEMP 36.4–36.9; O2SAT 95–97
[2024-01-31] MEDS: predniSONE 10 MG Tablet 50 MG PO ×2 (03:32→08:59)
[2024-01-31] MEDS: HYDROmorphone 0.5 MG/0.5 ML SYRINGE IV ×4 (03:41→20:01)
[2024-01-31] MEDS: 0.9 % NaCl (Sterile) Posiflush 10 mL IV (03:42)
[2024-01-31 04:44] LABS: Hematocrit 29.3 % (37-47); Hemoglobin 9.6 g/dL (12.0-15.0); Mean Corp Hgb Conc 32.8 g/dL (32-36); Mean Corpuscular Hgb 31.4 pg (27.0-32.0); Mean Corpuscular Volume 95.8 fL (81-99); Mean Platelet Vol. 8.9 fl (6.2-12.0); Platelet Count 171 K/mm3 (150-450); RBC Distribution Width CV 12.9 % (11.6-14.6); RBC Distribution Width SD 45.4 fl (35.1-43.9); Red Blood Count 3.06 M/mm3 (4.2-5.4); White Blood Count 7.9 K/mm3 (4.4-11.0)
[2024-01-31 04:57] LABS: Anion Gap 6 (5-15); BUN 12 mg/dL (7-18); BUN/Creat Ratio 20.8 RATIO (10-20); Calcium,Total 8.9 mg/dL (8.5-10.1); Chloride 107 mmol/L (98-107); Creatinine, Serum 0.58 mg/dL (0.55-1.02); EST Glomerular Filtration Rate 110 mL/min (>60); Est Glom Filt Rate - Afr Amer 133 mL/min (>60); Estimated Creatinine Clearance 64.65 ml/min; Glucose 157 mg/dL (74-106); Sodium Level 138 mmol/L (136-145)
[2024-01-31 05:46] LABS: Partial Thromboplast Time 111.3 Seconds (24.1-36.2)
[2024-01-31] MEDS: Ondansetron 4 MG/2 ML Vial IV (07:48)
[2024-01-31] MEDS: DiphenhydrAMINE 25 MG Capsule 50 MG PO (08:58)
[2024-01-31] MEDS: Citalopram 20 MG Tablet PO (08:59)
[2024-01-31] MEDS: Pantoprazole Sodium 20 MG Tablet PO (08:59)
[2024-01-31] MEDS: Polyethylene Glycol 3350 17 GM PACKET GT ×2 (11:52→20:03)
[2024-01-31] MEDS: Bisacodyl 5 MG Tablet PO (11:52)
[2024-01-31 14:58] LABS: Partial Thromboplast Time 101.2 Seconds (24.1-36.2)
[2024-01-31 16:25] LABS: Partial Thromboplast Time 26.4 Seconds (24.1-36.2)
[2024-01-31] MEDS: Heparin Injection (Vial) 5,000 UNIT/ML VIAL IV ×2 (16:34→23:48)
[2024-01-31] MEDS: HEPARIN/D5w 25,000 UNITS 25,000 UNITS/250 ML IV.SOLN. 4 UNITS CONT INF (16:37)
[2024-01-31] MEDS: 0.9% Saline Lock 10 ML Syringe IV (20:01)
[2024-01-31] MEDS: Acetaminophen 500 MG Tablet 1000 MG PO (22:50)
[2024-01-31 23:27] LABS: Partial Thromboplast Time 26.8 Seconds (24.1-36.2)
[2024-02-01 03:00] VITALS: BP 134/72; PULSE 71; RESP 15; TEMP 36.7; O2SAT 96
[2024-02-01 06:30] LABS: Hemoglobin 10.1 g/dL (12.0-15.0)
[2024-02-01 06:39] LABS: Partial Thromboplast Time 38.9 Seconds (24.1-36.2)
[2024-02-01] MEDS: Heparin Injection (Vial) 5,000 UNIT/ML VIAL IV (06:57)
[2024-02-01 09:56] VITALS: BP 132/71; PULSE 81; RESP 16; TEMP 36.9; O2SAT 97
[2024-02-01] MEDS: Citalopram 20 MG Tablet PO (10:01)
[2024-02-01] MEDS: Pantoprazole Sodium 20 MG Tablet PO (10:01)
[2024-02-01] MEDS: Bisacodyl 5 MG Tablet PO (10:01)
[2024-02-01] MEDS: Polyethylene Glycol 3350 17 GM PACKET GT (10:01)
[2024-02-01] MEDS: HYDROmorphone 0.5 MG/0.5 ML SYRINGE IV ×3 (10:07→21:43)
[2024-02-01 13:28] LABS: Partial Thromboplast Time 56.8 Seconds (24.1-36.2)
[2024-02-01 13:58] VITALS: BP 146/71; PULSE 68; RESP 14; TEMP 36.8; O2SAT 97
[2024-02-01] MEDS: 0.9 % NaCl (Sterile) Posiflush 10 mL IV ×2 (17:08→21:43)
[2024-02-01 21:00] VITALS: BP 118/97; PULSE 84; RESP 16; TEMP 36.4; O2SAT 96
[2024-02-01 21:04] LABS: Partial Thromboplast Time 48.6 Seconds (24.1-36.2)
[2024-02-02 03:00] VITALS: BP 130/69; PULSE 81; RESP 15; TEMP 36.1; O2SAT 97
[2024-02-02 04:04] LABS: Partial Thromboplast Time 62.9 Seconds (24.1-36.2)
[2024-02-02] MEDS: Ondansetron 4 MG/2 ML Vial IV ×2 (04:31→18:14)
[2024-02-02] MEDS: HYDROmorphone 0.5 MG/0.5 ML SYRINGE IV ×3 (04:31→18:14)
[2024-02-02] MEDS: HEPARIN/D5w 25,000 UNITS 25,000 UNITS/250 ML IV.SOLN. 9 UNITS CONT INF (05:48)
[2024-02-02 10:19] LABS: Partial Thromboplast Time 58.4 Seconds (24.1-36.2)
[2024-02-02 10:30] VITALS: BP 150/71; PULSE 77; RESP 18; TEMP 36.9; O2SAT 100
[2024-02-02] MEDS: Pantoprazole Sodium 20 MG Tablet PO (10:34)
[2024-02-02] MEDS: Citalopram 20 MG Tablet PO (10:34)
[2024-02-02] MEDS: Bisacodyl 5 MG Tablet PO (10:35)
[2024-02-02] MEDS: Polyethylene Glycol 3350 17 GM PACKET GT (10:35)
[2024-02-02 10:44] LABS: Hematocrit 33.6 % (37-47); Hemoglobin 10.7 g/dL (12.0-15.0); Mean Corp Hgb Conc 31.8 g/dL (32-36); Mean Corpuscular Hgb 31.1 pg (27.0-32.0); Mean Corpuscular Volume 97.7 fL (81-99); Mean Platelet Vol. 9.2 fl (6.2-12.0); Platelet Count 195 K/mm3 (150-450); RBC Distribution Width CV 13.2 % (11.6-14.6); RBC Distribution Width SD 47.4 fl (35.1-43.9); Red Blood Count 3.44 M/mm3 (4.2-5.4); White Blood Count 6.6 K/mm3 (4.4-11.0)
[2024-02-02] MEDS: 0.9 % NaCl (Sterile) Posiflush 10 mL IV ×2 (11:18→18:14)
[2024-02-02] MEDS: proCHLORPERazine 10 MG/2 ML Vial 5 MG IV (11:22)
[2024-02-02 15:45] VITALS: BP 119/52; PULSE 73; RESP 18; TEMP 36.6; O2SAT 95
[2024-02-02] MEDS: Acetaminophen 500 MG Tablet 1000 MG PO (19:58)
[2024-02-02 20:20] VITALS: BP 142/65; PULSE 69; RESP 16; TEMP 36.8; O2SAT 97
[2024-02-03 02:20] VITALS: BP 138/64; PULSE 75; RESP 16; TEMP 36.8; O2SAT 97
[2024-02-03 06:15] LABS: Hematocrit 30.4 % (37-47); Hemoglobin 9.8 g/dL (12.0-15.0); Mean Corp Hgb Conc 32.2 g/dL (32-36); Mean Corpuscular Hgb 30.8 pg (27.0-32.0); Mean Corpuscular Volume 95.6 fL (81-99); Mean Platelet Vol. 8.9 fl (6.2-12.0); Platelet Count 187 K/mm3 (150-450); RBC Distribution Width SD 45.7 fl (35.1-43.9); Red Blood Count 3.18 M/mm3 (4.2-5.4); White Blood Count 5.8 K/mm3 (4.4-11.0)
[2024-02-03 06:20] LABS: Partial Thromboplast Time 64.1 Seconds (24.1-36.2)
[2024-02-03] MEDS: HEPARIN/D5w 25,000 UNITS 25,000 UNITS/250 ML IV.SOLN. 9 UNITS CONT INF (06:37)
[2024-02-03 06:39] LABS: Anion Gap 4 (5-15); BUN 8 mg/dL (7-18); BUN/Creat Ratio 14.2 RATIO (10-20); Calcium,Total 8.7 mg/dL (8.5-10.1); Chloride 108 mmol/L (98-107); Creatinine, Serum 0.56 mg/dL (0.55-1.02); EST Glomerular Filtration Rate 113 mL/min (>60); Est Glom Filt Rate - Afr Amer 137 mL/min (>60); Estimated Creatinine Clearance 64.65 ml/min; Glucose 108 mg/dL (74-106); Potassium 3.7 mmol/L (3.5-5.1); Sodium Level 139 mmol/L (136-145)
[2024-02-03 08:20] VITALS: BP 156/82; PULSE 86; RESP 18; TEMP 36.4; O2SAT 96
[2024-02-03] MEDS: Polyethylene Glycol 3350 17 GM PACKET GT (10:01)
[2024-02-03] MEDS: Bisacodyl 5 MG Tablet PO (10:01)
[2024-02-03] MEDS: Pantoprazole Sodium 20 MG Tablet PO (10:01)
[2024-02-03] MEDS: Citalopram 20 MG Tablet PO (10:01)
[2024-02-03] MEDS: 0.9 % NaCl (Sterile) Posiflush 10 mL IV ×2 (11:26→17:15)
[2024-02-03] MEDS: HYDROmorphone 0.5 MG/0.5 ML SYRINGE IV ×3 (11:27→23:18)
[2024-02-03] MEDS: Ondansetron 4 MG/2 ML Vial IV ×2 (11:27→23:17)
[2024-02-03 14:20] VITALS: BP 151/78; PULSE 81; RESP 18; TEMP 36.2; O2SAT 100
[2024-02-03] MEDS: proCHLORPERazine 10 MG/2 ML Vial 5 MG IV (17:15)
[2024-02-03 20:45] VITALS: BP 116/65; PULSE 75; RESP 16; TEMP 36.8; O2SAT 95
[2024-02-03] MEDS: Acetaminophen 500 MG Tablet 1000 MG PO (20:55)
[2024-02-03] MEDS: predniSONE 10 MG Tablet 50 MG PO (23:17)
[2024-02-04] VITALS (20 sets, daily range): BP systolic 102–152; BP diastolic 52–85; PULSE 58–86; RESP 12–18; TEMP 36.7–36.8; O2SAT 94–99; BMI 27.3
[2024-02-04] MEDS: predniSONE 10 MG Tablet 50 MG PO ×2 (05:20→11:57)
[2024-02-04] MEDS: proCHLORPERazine 10 MG/2 ML Vial 5 MG IV ×2 (06:05→22:15)
[2024-02-04] MEDS: 0.9% Saline Lock 10 ML Syringe IV ×2 (06:05→22:17)
[2024-02-04] MEDS: HYDROmorphone 0.5 MG/0.5 ML SYRINGE IV ×3 (06:05→22:16)
[2024-02-04 06:23] LABS: Absolute Lymphocyte Count 0.44 X10^3/uL (0.83-4.51); Absolute Neutrophil Count 5.6 X10^3/uL (2.0-7.7); Eosinophil# 0.01 X10^3/uL; Eosinophils% 0.2 % (0-5); Hematocrit 30.5 % (37-47); Hemoglobin 9.8 g/dL (12.0-15.0); Lymphocyte # 0.44 X10^3/ul (0.83-4.51); Lymphocyte % 7.1 % (19-41); Mean Corp Hgb Conc 32.1 g/dL (32-36); Mean Corpuscular Hgb 30.7 pg (27.0-32.0); Mean Corpuscular Volume 95.6 fL (81-99); Mean Platelet Vol. 9.3 fl (6.2-12.0); Monocyte# 0.12 X10^3/uL; Monocyte% 1.9 % (0-10); NRBC Flagged by Analyzer 0 % (0-5); Neutrophil # 5.58 X10^3/uL (2.7-7.7); Neutrophil % 89.7 % (47-70); POSITIVE DIFFERENTIAL YES; Platelet Count 198 K/mm3 (150-450); RBC Distribution Width SD 45.3 fl (35.1-43.9); Red Blood Count 3.19 M/mm3 (4.2-5.4); White Blood Count 6.2 K/mm3 (4.4-11.0)
[2024-02-04 06:38] LABS: Partial Thromboplast Time 65.7 Seconds (24.1-36.2)
[2024-02-04 06:52] LABS: Anion Gap 4 (5-15); BUN 8 mg/dL (7-18); BUN/Creat Ratio 13.6 RATIO (10-20); Calcium,Total 8.7 mg/dL (8.5-10.1); Chloride 105 mmol/L (98-107); Creatinine, Serum 0.59 mg/dL (0.55-1.02); EST Glomerular Filtration Rate 108 mL/min (>60); Est Glom Filt Rate - Afr Amer 131 mL/min (>60); Estimated Creatinine Clearance 64.65 ml/min; Glucose 148 mg/dL (74-106); Sodium Level 137 mmol/L (136-145)
[2024-02-04] MEDS: HEPARIN/D5w 25,000 UNITS 25,000 UNITS/250 ML IV.SOLN. 9 UNITS CONT INF (11:20)
[2024-02-04] MEDS: DiphenhydrAMINE 25 MG Capsule 50 MG PO (11:56)
[2024-02-04] MEDS: HEPARIN/D5w 25,000 UNITS 25,000 UNITS/250 ML IV.SOLN. 5 UNITS CONT INF (14:25)
[2024-02-04] MEDS: 0.9 % NaCl (Sterile) Posiflush 10 mL IV (16:48)
[2024-02-04] MEDS: Ondansetron 4 MG/2 ML Vial IV (16:53)
[2024-02-04] MEDS: HEPARIN/D5w 25,000 UNITS 25,000 UNITS/250 ML IV.SOLN. 11 UNITS CONT INF (18:39)
[2024-02-05 00:28] VITALS: BP 127/60; BP 130/64; PULSE 71; RESP 16; TEMP 36.9; O2SAT 96
[2024-02-05 02:45] LABS: Partial Thromboplast Time 119.5 Seconds (24.1-36.2)
[2024-02-05 04:13] VITALS: BP 117/63; BP 127/60; PULSE 65; RESP 16; TEMP 36.8; O2SAT 94
[2024-02-05 04:15] VITALS: BP 117/63; PULSE 65; RESP 16; TEMP 36.8; O2SAT 94
[2024-02-05 05:42] LABS: Hematocrit 27.5 % (37-47); Mean Corp Hgb Conc 32.7 g/dL (32-36); Mean Corpuscular Hgb 31.6 pg (27.0-32.0); Mean Corpuscular Volume 96.5 fL (81-99); Mean Platelet Vol. 9.3 fl (6.2-12.0); Platelet Count 182 K/mm3 (150-450); RBC Distribution Width CV 13.2 % (11.6-14.6); RBC Distribution Width SD 46.6 fl (35.1-43.9); Red Blood Count 2.85 M/mm3 (4.2-5.4); White Blood Count 9.1 K/mm3 (4.4-11.0)
[2024-02-05 06:08] LABS: Anion Gap 4 (5-15); BUN 11 mg/dL (7-18); BUN/Creat Ratio 17.1 RATIO (10-20); Calcium,Total 8.8 mg/dL (8.5-10.1); Chloride 106 mmol/L (98-107); Creatinine, Serum 0.64 mg/dL (0.55-1.02); EST Glomerular Filtration Rate 97 mL/min (>60); Est Glom Filt Rate - Afr Amer 118 mL/min (>60); Estimated Creatinine Clearance 64.65 ml/min; Glucose 124 mg/dL (74-106); Potassium 3.9 mmol/L (3.5-5.1); Sodium Level 137 mmol/L (136-145)
[2024-02-05 06:13] LABS: International Normalized Ratio 1.2; Prothrombin Time (Protime)PT. 14.7 SECONDS (11.7-14.9)
[2024-02-05 06:15] LABS: Partial Thromboplast Time 47.1 Seconds (24.1-36.2)
[2024-02-05 08:04] VITALS: BP 127/60
[2024-02-05 09:30] VITALS: BP 109/56; PULSE 82; RESP 12; TEMP 36.7; O2SAT 97
[2024-02-05] MEDS: Polyethylene Glycol 3350 17 GM PACKET GT (09:31)
[2024-02-05] MEDS: Citalopram 20 MG Tablet PO (09:31)
[2024-02-05] MEDS: Pantoprazole Sodium 20 MG Tablet PO (09:32)
[2024-02-05] MEDS: Enoxaparin 80 MG/0.8 ML Syringe 70 MG SC (09:38)
[2024-02-05] MEDS: Acetaminophen 500 MG Tablet 1000 MG PO (09:44)
== END 2024-02-05 12:42 | disposition hospice, home (50) | DRG 253 ==
LOC: ICU 02-01 17:34 → PCU 02-02 09:19
PROVIDERS: Physician Assistant; Admitting Provider Surgery Trauma Surgery; PCP Internal Medicine; Referring Provider Surgery Trauma Surgery; Visit Provider Surgery Trauma Surgery
PROC: 04CY0ZZ Extirpation of Matter from Lower Artery, Open Approach (ICD-10-PCS; principal; 2024-02-04 11:40)
DX: I82.411 Acute embolism and thrombosis of right femoral vein (principal); I87.1 Compression of vein; C78.7 Secondary malignant neoplasm of liver and intrahepatic bile duct; C78.1 Secondary malignant neoplasm of mediastinum; C77.8 Secondary and unspecified malignant neoplasm of lymph nodes of multiple regions; C79.82 Secondary malignant neoplasm of genital organs; C56.2 Malignant neoplasm of left ovary; R16.0 Hepatomegaly, not elsewhere classified; I10 Essential (primary) hypertension; F32.A Depression, unspecified; D64.9 Anemia, unspecified; K21.9 Gastro-esophageal reflux disease without esophagitis; K59.09 Other constipation; Z79.01 Long term (current) use of anticoagulants; Z79.891 Long term (current) use of opiate analgesic; Z86.16 Personal history of COVID-19; R19.09 Other intra-abdominal and pelvic swelling, mass and lump; R59.1 Generalized enlarged lymph nodes; Z90.710 Acquired absence of both cervix and uterus; Z79.899 Other long term (current) drug therapy
CPT/HCPCS: 36005; 36010; 36415; 37187; 37248; 37249; 37252; 37253; 74177; 75820; 75825; 76937; 80048; 80053; 82248; 83735; 84100; 84443; 85018; 85025; 85027; 85610; 85730; 93005; 96366; 96376; 97162; 97166; 99152; 99153; C1753; C1757; C1769; C1887; C1894; J7030; Q9967; A4216; C1725; J2405